=== PATIENT | male | born 1935 | race Caucasian/White ===

== ENCOUNTER 2018-07-22 05:25 | Inpatient (IN) | payer MEDICARE, OTHER, SELFPAY ==
[2018-07-11 14:39] VITALS: BP 127/67; PULSE 60; RESP 16; TEMP 36.6; O2SAT 97; BMI 28.3
[2018-07-11 15:20] LABS: Hemoglobin 14.1 g/dl (13.0-16.5); Mean Corpuscular Hgb 30.7 pg (27.0-32.0); Mean Corpuscular Volume 95.7 fL (80-94); Platelet Count 226 K/mm3 (150-450); RBC Distribution Width CV 13.7 % (11.6-14.6); RBC Distribution Width SD 47.6 fl (35.1-43.9); White Blood Count 6.8 K/mm3 (4.4-11.0)
[2018-07-11 15:45] LABS: Anion Gap 9 (5-15); BUN 18 mg/dL (7-18); BUN/Creat Ratio 16.7 RATIO (10-20); Calcium,Total 8.9 mg/dL (8.5-10.1); Chloride 106 mmol/L (98-107); Creatinine, Serum 1.08 mg/dL (0.70-1.30); EST Glomerular Filtration Rate 69 mL/min (>60); Est Glom Filt Rate - Afr Amer 84 mL/min (>60); Estimated Creatinine Clearance 51.02 ml/min; Glucose 118 mg/dL (74-106); Potassium 4.5 mmol/L (3.5-5.1); Sodium Level 145 mmol/L (136-145)
[2018-07-12 09:52] LABS: Absolute Lymphocyte Count 1.73 X10^3/ul (0.83-4.51); Absolute Neutrophil Count 3.9 X10^3/uL (2.0-7.7); Basophil# 0.04 X10^3/uL; Basophil% 0.6 % (0-1); Eosinophil# 0.36 X10^3/uL; Eosinophils% 5.4 % (0-5); Lymphocyte # 1.73 X10^3/ul (4.0); Lymphocyte % 26.1 % (19-41); Monocyte# 0.56 X10^3/uL; Monocyte% 8.4 % (0-10); Neutrophil # 3.93 X10^3/uL (2.7-7.7); Neutrophil % 59.3 % (47-70); POSITIVE COUNT NO; POSITIVE DIFFERENTIAL NO; POSITIVE MORPHOLOGY NO
--- NOTE | 2018-07-19 12:19 | CASEMGMT ---
Attempted to contact patient regarding discharge needs after upcoming surgery. No answer, message left on answering machine asking for a return call. Angelina Jon LPN Clinical Support
--- NOTE | 2018-07-19 12:50 | CASEMGMT ---
Patient returned phone call. Spoke regarding discharge needs after upcoming surgery. Patient plans to return home with assistance from . Has initial outpatient therapy appointment set up. Patient has a walker, is unsure of about having access to toilet riser or shower seat, states that is not home and she would know. Patient does not have a bedroom or bathroom on the 1st level of the home, there are approximately 15 steps to get to second level of home. There are 2-3 steps into the home. Patient asks if it's an option to go somewhere for a few days for therapy after surgery, states his may ask about that after surgery. Informed patient that RN-CM will follow up after surgery. Angelina Jon LPN Clinical Support
[2018-07-22] VITALS (12 sets, daily range): BP systolic 111–139; BP diastolic 59–72; PULSE 52–69; RESP 12–18; TEMP 35.9–37.2; O2SAT 92–100; BMI 28.3
[2018-07-22] MEDS: oxyCODONE HCl Cr 10 MG Tablet PO (06:00)
[2018-07-22] MEDS: Celecoxib 200 MG Capsule 400 MG PO (06:00)
[2018-07-22] MEDS: Acetaminophen 500 MG Tablet 1000 MG PO ×3 (06:01→21:14)
[2018-07-22] MEDS: Lactated Ringers 1,000 ML 999 ML IV (06:40)
--- NOTE | 2018-07-22 07:15 | KNEE_PTH ---
PATIENT: ESTELA GUEVARA LOC: MS3 U#:[id number] AGE/SX: 82/M ROOM: FL301 RE07/23/[address]: Dr. Ramos Salamanca DO : 1935 BED: 1 DIS: 07/24/2018 SPEC #: [id number] RECD: 07/22/18 15:18 STATUS: MATEO RERobert #: [id number] DEBRA: 07/22/18 07:[address]: aRmos Salamanca DEPT: SURGICAL PATHOLOGY RECD BY: Jose Gutierrez ENTERED: 07/23/18 08:29 SP TYPE: TOTAL KNEE OTHR DR: Dr. Miguel Hayes MD Tissues: Knee, NOS Procedures: Decalcification bone/plaque Surgery Specimen Level IV HEADER OPERATION: Total knee replacement PRE-OP DIAGNOSIS: Endstage osteoarthritis, left knee TISSUE SUBMITTED: Bone and soft tissue MICROSCOPIC DIAGNOSIS Bone and soft tissue of left knee, total knee resection: Consistent with severe degenerative joint disease. Mild synovial hyperplasia. AM:rianna 07/26/18 MICROSCOPIC DESCRIPTION Slides are reviewed. GROSS DESCRIPTION Received is one container designated bone and soft tissue left knee. The specimen consists of multiple fragments of ellison-yellow bone measuring in aggregate 10 x 9 x 4 cm. Also in the specimen container are multiple fragments of yellow-white soft tissue measuring in aggregate 8 x 7 x 4 cm. A number of bony fragments contain articular surfaces consistent with tibial plateau and femoral condyle and displaying prominent osteophyte formation, eburnation, and bone erosion. Independent Beauty Consultant sections are submitted in two cassettes as follows: 1 - soft tissue, 2 - bone after decalcification. / SJ:rianna 07/23/18 TC:5 [facility]: [id number], [id number]
[2018-07-22] MEDS: Cefazolin 2 GM in 0.9% Normal Saline 100 ML IV (07:20)
--- NOTE | 2018-07-22 08:38 | PCM.OPRPT ---
Report of Operation Date of Procedure: 07/22/18 Pre-Operative Diagnosis: OA Left knee Post-Operative Diagnosis: same Surgery/Procedure Performed:: Left TKR pallet sorter: Corky Bueno Type of Anesthesia:: Spinal Anesthesiologist: Erich Coombs Specimen's removed: bone Drains: 0 Estimated Blood Loss (mL): 25cc Description of Procedure: Primary Surgeon/Physician: Ramos Salamanca pallet sorter: Corky Bueno PA-C pallet sorter: Pre-Operative Diagnosis: OA left knee Post-Operative Diagnosis: same Surgery/Procedure Performed: Left TKR Estimated Blood Loss: 25 cc Specimen's Removed: bone Type of Anesthesia: spinal ASA Class: 2 Implants: [Italo Triathlon size 6 PS femur, size 6 tibia, 11 mm polyethylene, 40 mm patella (all components cemented) ] Indications: Patient has severe end-stage osteoarthritis diagnosed via x-rays in the knee. They have failed all forms of conservative measures including activity modification, injections, anti-inflammatories, use of assistive device. The patient has pain that affects on a daily basis and prevents him from doing things that they enjoyed. They have elected to undergo the above procedure. The risks of the procedure were discussed at length and their questions were answered. Procedure Description: The patient was greeted in the preoperative area. The [left ] knee was then marked with a surgical marker. Patient was then taken to or Suite 2. They were administered a dose of antibiotics as well as tranexamic acid. Once adequate anesthesia was obtained and airway was secured to placed in supine position on the operating room table. A well-padded tourniquet was placed on the affected extremity. Leg was then prepped and draped in the usual sterile fashion from the knee down. Ioban was used on the skin. Surgical timeout was then performed and confirmed with all present. Six-inch Esmarch was used to examine the limb and tourniquet was then inflated to 250 mmHg. A longitudinal incision was then planned and carried out in the anterior aspect of the knee. The dissection was then carried the length of the incision the extensor mechanism was identified. Standard medial parapatellar arthrotomy was then performed revealing severe eburnation of bone and periarticular osteophytes. There is complete loss of cartilage especially in the medial compartment with varus alignment. Anterior fat pad was removed for visualization purposes and the anterior medial aspect of the tibia was skeletonized for exposure to the knee. The knee was then flexed the patella was inverted. Opening reamer was then used in the femur approximately 1 cm anterior to the attachment of the PCL. The intramedullary valgus wand was then placed in the femur set at 5? of valgus. The distal femoral cutting jig was then applied to the femur with anticipated resection of approximately 8 mm. This was then made with a oscillating saw. The sizing guide was then placed referencing off the posterior condyles and also reference off the epicondylar axis. This was measured and the appropriate size 4-in-1 cutting jig was then applied to the distal femur. Anterior posterior cuts were made followed by the anterior and posterior chamfer cuts. These bony pieces and fragments were removed and placed on the back table. Posterior retractor was then utilized and the tibia was subluxed anteriorly. Intramedullary tibial alignment jig was then applied to the tibia referencing off the medial one third of the tibial tubercle the anterior tibial spine the middle aspect of the tibiotalar joint. Also reference off patient's [place] slope. The tibial cutting jig was then pinned with anticipated resection of 2 mm off of the deficient medial tibial condyle. This cut was made with the oscillating saw. Once this was complete a laminar bottom pounder cement shoes was utilized in both medial lateral meniscus were removed and a posterior capsular osteophytes were also removed. Posterior capsule release was performed in the posterior capsule as well as the geniculate arteries are treated with the aqua Mack. The tibia was incised and the appropriate sized tibial tray was then pinned. The femoral box cutting jig was then applied to the femur and the box was prepared removing a portion of the intercondylar notch. The femoral trial was then placed and the knee was trialed. Full flexion-extension were easily achieved. The knee seemed to balance quite nicely. Any remaining osteophytes were removed at this time. Once this was complete the patella was everted and the Yudelka patella reaming device was then utilized the patella was then placed in the appropriate jig and reamer was then used to remove approximately 9 mm of the undersurface of the patella. A soft tissue remaining was in the way was removed and patella trial was then placed listed maintain excellent tracking using the no thumbs technique. The tibial tray at this point was punched to accommodate the fins of the final implant. At this point cement was mixed on the back table. The trial components were removed and the knee was copiously irrigated. Did use a cocktail of injection for postoperative pain control. The final components were then cemented in the standard fashion and excess cement was removed with cement removal tools and patellar clamp is placed in the patella. As the cement had cured in full extension tourniquet was deflated and hemostasis was perfect with Bovie cautery as well as the aqua Manus. Needle is once again trialed with different size polyethylenes to ensure the full range of motion was achieved as well as excellent balancing ligamentously was achieved. At this point the knee was copiously irrigated. Final implant was then inserted locking mechanism was engaged and confirmed to be locked. The arthrotomy was then closed with #1 Vicryl aggravate type fashion interrupted. Subcutaneous tissue was closed with 0 Vicryl and surgical siobhan were placed in the skin. A occlusive silver impregnated dressing was then applied followed by well-padded sterile dressing secured with an Giuseppe wrap. The patient was taken to the PACU in stable condition. No complications known at this time. Postoperatively we will maintain standard total knee postoperative protocol. The use of the physician infertility medical assistant was integral during this procedure. They assisted with positioning placement of the tourniquet retracting closure and placement of the dressing. The procedure would have been much more difficult without their expertise and assistance - Admit VTE Documentation VTE Present on Admission: No VTE Mechan Device Prophylaxis: SCD's, Thigh High SHAUN Hose VTE Pharm Prophylaxis ordered?: Yes
--- NOTE | 2018-07-22 08:44 | OP.PCM_ITS ---
Report of Operation Date of Procedure: 07/22/18 Pre-Operative Diagnosis: OA Left knee Post-Operative Diagnosis: same Surgery/Procedure Performed:: Left TKR consumer safety officer: Corky Bueno Type of Anesthesia:: Spinal Anesthesiologist: Erich Coombs Specimen's removed: bone Drains: 0 Estimated Blood Loss (mL): 25cc Description of Procedure: Primary Surgeon/Physician: Ramos Salamanca consumer safety officer: Corky Bueno PA-C consumer safety officer: Pre-Operative Diagnosis: OA left knee Post-Operative Diagnosis: same Surgery/Procedure Performed: Left TKR Estimated Blood Loss: 25 cc Specimen's Removed: bone Type of Anesthesia: spinal ASA Class: 2 Implants: [Italo Triathlon size 6 PS femur, size 6 tibia, 11 mm polyethylene, 40 mm patella (all components cemented) ] Indications: Patient has severe end-stage osteoarthritis diagnosed via x-rays in the knee. They have failed all forms of conservative measures including activity modification, injections, anti-inflammatories, use of assistive device. The patient has pain that affects on a daily basis and prevents him from doing things that they enjoyed. They have elected to undergo the above procedure. The risks of the procedure were discussed at length and their questions were answered. Procedure Description: The patient was greeted in the preoperative area. The [left ] knee was then marked with a surgical marker. Patient was then taken to or Suite 2. They were administered a dose of antibiotics as well as tranexamic acid. Once adequate anesthesia was obtained and airway was secured to placed in supine position on the operating room table. A well-padded tourniquet was placed on the affected extremity. Leg was then prepped and draped in the usual sterile fashion from the knee down. Ioban was used on the skin. Surgical timeout was then performed and confirmed with all present. Six-inch Esmarch was used to examine the limb and tourniquet was then inflated to 250 mmHg. A longitudinal incision was then planned and carried out in the anterior aspect of the knee. The dissection was then carried the length of the incision the extensor mechanism was identified. Standard medial parapatellar arthrotomy was then performed revealing severe eburnation of bone and periarticular osteophytes. There is complete loss of cartilage especially in the medial compartment with varus alignment. Anterior fat pad was removed for visualization purposes and the anterior medial aspect of the tibia was skeletonized for exposure to the knee. The knee was then flexed the patella was inverted. Opening reamer was then used in the femur approximately 1 cm anterior to the attachment of the PCL. The intramedullary valgus wand was then placed in the femur set at 5? of valgus. The distal femoral cutting jig was then applied to the femur with anticipated resection of approximately 8 mm. This was then made with a oscillating saw. The sizing guide was then placed referencing off the posterior condyles and also reference off the epicondylar axis. This was measured and the appropriate size 4-in-1 cutting jig was then applied to the distal femur. Anterior posterior cuts were made followed by the anterior and posterior chamfer cuts. These bony pieces and fragments were removed and placed on the back table. Posterior retractor was then utilized and the tibia was subluxed anteriorly. Intramedullary tibial alignment jig was then applied to the tibia referencing off the medial one third of the tibial tubercle the anterior tibial spine the middle aspect of the tibiotalar joint. Also reference off patient's [place] slope. The tibial cutting jig was then pinned with anticipated resection of 2 mm off of the deficient medial tibial condyle. This cut was made with the oscillating saw. Once this was complete a laminar director targeted marketing was utilized in both medial lateral meniscus were removed and a posterior capsular osteophytes were also removed. Posterior capsule release was performed in the posterior capsule as well as the geniculate arteries are treated with the aqua Mack. The tibia was incised and the appropriate sized tibial tray was then pinned. The femoral box cutting jig was then applied to the femur and the box was prepared removing a portion of the intercondylar notch. The femoral trial was then placed and the knee was trialed. Full flexion-extension were easily achieved. The knee seemed to balance quite nicely. Any remaining osteophytes were removed at this time. Once this was complete the patella was everted and the Yudelka patella reaming device was then utilized the patella was then placed in the appropriate jig and reamer was then used to remove approximately 9 mm of the undersurface of the patella. A soft tissue remaining was in the way was removed and patella trial was then placed listed maintain excellent tracking using the no thumbs technique. The tibial tray at this point was punched to accommodate the fins of the final implant. At this point cement was mixed on the back table. The trial components were removed and the knee was copiously irrigated. Did use a cocktail of injection for postoperative pain control. The final components were then cemented in the standard fashion and excess cement was removed with cement removal tools and patellar clamp is placed in the patella. As the cement had cured in full extension tourniquet was deflated and hemostasis was perfect with Bovie cautery as well as the aqua Manus. Needle is once again trialed with different size polyethylenes to ensure the full range of motion was achieved as well as excellent balancing ligamentously was achieved. At this point the knee was copiously irrigated. Final implant was then inserted locking mechanism was engaged and confirmed to be locked. The arthrotomy was then closed with #1 Vicryl aggravate type fashion interrupted. Subcutaneous tissue was closed with 0 Vicryl and surgical siobhan were placed in the skin. A occlusive silver impregnated dressing was then applied followed by well-padded sterile dressing secured with an Giuseppe wrap. The patient was taken to the PACU in stable condition. No complications known at this time. Postoperatively we will maintain standard total knee postoperative protocol. The use of the physician credit control assistant was integral during this procedure. They assisted with positioning placement of the tourniquet retracting closure and placement of the dressing. The procedure would have been much more difficult without their expertise and assistance - Admit VTE Documentation VTE Present on Admission: No VTE Mechan Device Prophylaxis: SCD's, Thigh High SHAUN Hose VTE Pharm Prophylaxis ordered?: Yes
[2018-07-22 09:44] LABS: Hematocrit 41.3 % (40-54); Hemoglobin 13.2 g/dl (13.0-16.5); Mean Corpuscular Hgb 30.8 pg (27.0-32.0); Mean Corpuscular Volume 96.5 fL (80-94); Mean Platelet Vol. 9.6 fl (6.2-12.0); Platelet Count 197 K/mm3 (150-450); RBC Distribution Width CV 13.8 % (11.6-14.6); RBC Distribution Width SD 48.6 fl (35.1-43.9); Red Blood Count 4.28 M/mm3 (4.6-6.2); White Blood Count 9.1 K/mm3 (4.4-11.0)
[2018-07-22 09:46] LABS: Scan Indicated on CBC? Y/N NO
[2018-07-22 09:49] LABS: Anion Gap 5 (5-15); BUN 13 mg/dL (7-18); BUN/Creat Ratio 11.7 RATIO (10-20); Calcium,Total 8.5 mg/dL (8.5-10.1); Chloride 108 mmol/L (98-107); Creatinine, Serum 1.11 mg/dL (0.70-1.30); EST Glomerular Filtration Rate 67 mL/min (>60); Est Glom Filt Rate - Afr Amer 81 mL/min (>60); Estimated Creatinine Clearance 49.64 ml/min; Glucose 129 mg/dL (74-106); Potassium 4.4 mmol/L (3.5-5.1); Sodium Level 141 mmol/L (136-145)
--- NOTE | 2018-07-22 12:15 | CASEMGMT ---
LUZMA COTA Face to Face with patient for initial transition planning/care coordination assessment. RN CIPRIANO introduced self and role at [facility]. Patient lying in bed, alert and oriented, family at bedside. Patient willing to participate in assessment and is able to answer all questions appropriately. Care providers, pharmacy, and demographics verified. Patient wishes to discharge home and is setup with [facility] for outpatient therapy. Patient states he has no further needs or concerns at this time. CM to follow for discharge planning needs that may arise. PCP: Freddy Specialists: Kevin, dermatology; Maurice, rheumatology Preferred Pharmacy: [facility] Insurance: [facility] Prescription Benefit: Yes Living Will/HPOA: Yes, Yesika Hussein LNOK: and daughter Living Arrangements: Patient lives with in 2 story home. Patient can have bed on 1st floor with BSC. Patient was independent at home prior to surgery. Transportation: DME/HHC: Patient has tub bench, BSC, cane, walker at home. Denies home oxygen, bipap, cpap, or nebulizer at home. Patient denies previous HHC or SNF. Disposition Plan: Patient to discharge home with outpatient therapy, family support, and follow-up plans in place. Jackie MCGRAW, RN, CM
[2018-07-22] MEDS: Lactated Ringers 1,000 ML 125 ML IV ×2 (14:46→21:18)
[2018-07-22] MEDS: Cefazolin 1 GM/50 ML BAG IV ×2 (14:47→23:25)
[2018-07-22] MEDS: Scopolamine 1mg/72hr Patch 1 PATCH TD (14:48)
[2018-07-22] MEDS: Aspirin 325 MG Tablet PO (17:23)
[2018-07-22] MEDS: Senna/Docusate Sodium 1 Tablet 2 TABLET PO (21:14)
[2018-07-23 03:57] VITALS: BP 146/76; PULSE 65; RESP 16; TEMP 36.7; O2SAT 95
[2018-07-23] MEDS: 0.9% NaCl Peripheral Flush Adult/Peds IV (05:15)
[2018-07-23] MEDS: Acetaminophen 500 MG Tablet 1000 MG PO ×3 (05:15→21:57)
[2018-07-23 06:04] LABS: Hematocrit 41.1 % (40-54); Mean Corp Hgb Conc 31.6 g/gl (32-36); Mean Corpuscular Volume 97.9 fL (80-94); Mean Platelet Vol. 9.9 fl (6.2-12.0); Platelet Count 181 K/mm3 (150-450); RBC Distribution Width CV 13.5 % (11.6-14.6); RBC Distribution Width SD 47.1 fl (35.1-43.9); White Blood Count 9.3 K/mm3 (4.4-11.0)
[2018-07-23 06:11] LABS: Anion Gap 7 (5-15); BUN 12 mg/dL (7-18); BUN/Creat Ratio 12.1 RATIO (10-20); Calcium,Total 8.5 mg/dL (8.5-10.1); Chloride 108 mmol/L (98-107); Creatinine, Serum 0.99 mg/dL (0.70-1.30); EST Glomerular Filtration Rate 77 mL/min (>60); Est Glom Filt Rate - Afr Amer 93 mL/min (>60); Estimated Creatinine Clearance 55.66 ml/min; Glucose 100 mg/dL (74-106); Potassium 4.3 mmol/L (3.5-5.1); Sodium Level 144 mmol/L (136-145)
[2018-07-23 06:21] LABS: Scan Indicated on CBC? Y/N NO
--- NOTE | 2018-07-23 07:10 | PCM.PN.ORT ---
Subjective: Patient doing well. Pain well controlled. Objective: Sitting up in chair eating breakfast. - Physical Exam General: Alert, Oriented x3, No apparent distress Extremities: No clubbing, No cyanosis, No edema, Capillary Refill Less than 3 Seconds, No Calf Tenderness, Tenderness - Left knee as expected. ROM: -6 to 85 Skin: Incision - stable Vital Signs Temp Pulse Resp BP Pulse Ox 98.1 F 65 16 146/76 H 95 07/23/18 03:57 07/23/18 03:57 07/23/18 03:57 07/23/18 03:57 07/23/18 03:57 Oxygen Delivery Method Room Air Weight: 186 lb 8.177 oz Body Mass Index (BMI) 28.3 Intake and Output for Last 24 Hours 07/21/18 07/22/18 07/23/18 23:59 23:59 23:59 Intake Total 3831 / 3831 662 / 662 Output Total 925 / 925 1999 / 1999 Balance 2906 / 2906 -1338 / -1338 Laboratory Tests Past 24 Hrs 07/22/18 07/22/18 07/23/18 06:34 06:34 05:25 WBC 9.1 9.3 RBC 4.28 L 4.20 L Hgb 13.2 13.0 Hct 41.3 41.1 MCV 96.5 H 97.9 H MCH 30.8 31.0 MCHC 32.0 31.6 L RDW 13.8 13.5 RDW Differential 48.6 H 47.1 H Plt Count 197 181 MPV 9.6 9.9 Sodium 141 Potassium 4.4 Chloride 108 H Carbon Dioxide 28.0 Anion Gap 5 BUN 13 Creatinine 1.11 Estim Creat Clear Calc 49.64 Est GFR (MDRD) Af Amer 81 Est GFR (MDRD) Non-Af 67 BUN/Creatinine Ratio 11.7 Glucose 129 H Calcium 8.5 07/23/18 05:25 WBC RBC Hgb Hct MCV MCH MCHC RDW RDW Differential Plt Count MPV Sodium 144 Potassium 4.3 Chloride 108 H Carbon Dioxide 29.0 Anion Gap 7 BUN 12 Creatinine 0.99 Estim Creat Clear Calc 55.66 Est GFR (MDRD) Af Amer 93 Est GFR (MDRD) Non-Af 77 BUN/Creatinine Ratio 12.1 Glucose 100 Calcium 8.5 Medical Necessity - Tobacco Use Smoking Status: Former smoker Tobacco Use: Non-smoker Assessment/Plan s/p Left TKR -- PT today then home tomorrow
[2018-07-23] MEDS: Calcium Carb/Vitamin D 1 TABLET Tablet PO (08:25)
[2018-07-23] MEDS: Aspirin 325 MG Tablet PO ×2 (08:25→16:56)
[2018-07-23] MEDS: Multivitamins,Ther W-Minerals Tablet 1 TABLET PO (08:25)
[2018-07-23] MEDS: Senna/Docusate Sodium 1 Tablet 2 TABLET PO ×2 (09:21→21:57)
[2018-07-23] MEDS: amLODIPine 2.5 MG Tablet PO (09:21)
[2018-07-23] MEDS: Atenolol 50 MG Tablet PO (09:21)
[2018-07-23] MEDS: Ketorolac 15 MG/ML Vial IV (09:24)
[2018-07-23 09:48] VITALS: BP 129/62; PULSE 68; RESP 16; TEMP 36.8; O2SAT 98
--- NOTE | 2018-07-23 11:24 | CASEMGMT ---
LUZMA COTA updated by family that patient will need new walker. RN CM will request script for FWW. Patient and family agreeable to [employer]. RN CM will assist in setting up walker and arrange for delivery to patient's room prior to discharge. Discharge is anticipated for 07/24/18 to home with outpatient therapy at [facility].
[2018-07-23] MEDS: oxyCODONE 5 MG Tablet PO (12:16)
[2018-07-23 16:00] VITALS: BP 145/63; PULSE 72; RESP 16; TEMP 36.5; O2SAT 93
[2018-07-23 20:29] VITALS: BP 143/63; PULSE 71; RESP 18; TEMP 37; O2SAT 96
[2018-07-24 02:28] VITALS: BP 143/62; PULSE 65; RESP 18; TEMP 36.7; O2SAT 96
[2018-07-24] MEDS: traMADol 50 MG Tablet PO ×2 (02:33→10:25)
[2018-07-24] MEDS: Acetaminophen 500 MG Tablet 1000 MG PO ×2 (06:02→14:20)
--- NOTE | 2018-07-24 08:20 | NURSING ---
pt out of room at [facility].
[2018-07-24] MEDS: amLODIPine 2.5 MG Tablet PO (10:25)
[2018-07-24] MEDS: Calcium Carb/Vitamin D 1 TABLET Tablet PO (10:25)
[2018-07-24] MEDS: Aspirin 325 MG Tablet PO (10:25)
[2018-07-24] MEDS: Multivitamins,Ther W-Minerals Tablet 1 TABLET PO (10:25)
[2018-07-24] MEDS: Senna/Docusate Sodium 1 Tablet 2 TABLET PO (10:25)
[2018-07-24] MEDS: Atenolol 50 MG Tablet PO (10:25)
[2018-07-24 10:37] VITALS: BP 134/67; PULSE 68; RESP 18; TEMP 36.8; O2SAT 95
--- NOTE | 2018-07-24 11:13 | PCM.PN.ORT ---
Subjective: Patient sitting at bedside with his at his side. Pain well managed. Denies chest pain, shortness breath, calf pain, nausea vomiting. Patient ready for discharge home. Objective: Dressings clean dry intact. Negative signs and symptoms of DVT. Vital signs labs within normal limits. Patient is afebrile neurovascular is intact. No respiratory distress speaking full sentences. - Physical Exam General: Alert, Oriented x3, Cooperative HEENT: PERRLA Oral: Moist Mucosa Neurological: Cranial nerves II-XII grossly intact Psych/Mental Status: Normal Affect, Alert and oriented to time, place, person, mood and affect Vital Signs Temp Pulse Resp BP Pulse Ox 98.2 F 68 18 134/67 H 95 07/24/18 10:37 07/24/18 10:37 07/24/18 10:37 07/24/18 10:37 07/24/18 10:37 Oxygen Delivery Method Room Air Weight: 84.6 kg Body Mass Index (BMI) 28.3 Intake and Output for Last 24 Hours 07/22/18 07/23/18 07/24/18 23:59 23:59 23:59 Intake Total 3831 / 3831 902 / 902 400 / 400 Output Total 925 / 925 2375 / 2375 1050 / 1050 Balance 2906 / 2906 -1473 / -1473 -650 / -650 Medical Necessity - Tobacco Use Smoking Status: Former smoker Tobacco Use: Non-smoker Assessment/Plan Status post left total knee arthroplasty Plan 1. Continue all pain medications as prescribed 2. Continue physical therapy outpatient at [facility] [place] 3. Aspirin 325 mg 1 p.o. every 12 hours times 30 days for postop DVT prophylaxis 4. Follow-up as scheduled to see pink sheet 5. Discharge home today
--- NOTE | 2018-07-24 11:16 | PN.ORTHO_ITS ---
Subjective: Patient sitting at bedside with his at his side. Pain well managed. Denies chest pain, shortness breath, calf pain, nausea vomiting. Patient ready for discharge home. Objective: Dressings clean dry intact. Negative signs and symptoms of DVT. Vital signs labs within normal limits. Patient is afebrile neurovascular is intact. No respiratory distress speaking full sentences. - Physical Exam General: Alert, Oriented x3, Cooperative HEENT: PERRLA Oral: Moist Mucosa Neurological: Cranial nerves II-XII grossly intact Psych/Mental Status: Normal Affect, Alert and oriented to time, place, person, mood and affect Vital Signs Temp Pulse Resp BP Pulse Ox 98.2 F 68 18 134/67 H 95 07/24/18 10:37 07/24/18 10:37 07/24/18 10:37 07/24/18 10:37 07/24/18 10:37 Oxygen Delivery Method Room Air Weight: 84.6 kg Body Mass Index (BMI) 28.3 Intake and Output for Last 24 Hours 07/22/18 07/23/18 07/24/18 23:59 23:59 23:59 Intake Total 3831 / 3831 902 / 902 400 / 400 Output Total 925 / 925 2375 / 2375 1050 / 1050 Balance 2906 / 2906 -1473 / -1473 -650 / -650 Medical Necessity - Tobacco Use Smoking Status: Former smoker Tobacco Use: Non-smoker Assessment/Plan Status post left total knee arthroplasty Plan 1. Continue all pain medications as prescribed 2. Continue physical therapy outpatient at [facility] [place] 3. Aspirin 325 mg 1 p.o. every 12 hours times 30 days for postop DVT prophy laxis 4. Follow-up as scheduled to see pink sheet 5. Discharge home today
--- NOTE | 2018-07-24 11:20 | DCINST_ITS ---
Discharge Diet: No Restrictions Discharge Activity: May Not Drive, May Shower, Use Walker May shower in (days): 2 Ice area for (Minutes): 20 - each hour while awake. Weight Bearing Status: Weight bearing as tolerated Elevate: Operative Extremity Additional Activity Instructions:: Wear elastic stockings for 2 weeks after your surgery. Call your doctor if your incision/area has: Continuous Slow Oozing, Sudden Increased Bleeding, Increased Pain/ Swelling, Increased Redness, Foul Smelling Discharge Call your doctor if you observe: Fever of 101 or Higher, Coldness, Increased Pain - in extremity, Numbness or Tingling, Change in Color, Calf discomfort, Uncontrolled pain Change Dressing in (Days):: 0 - and daily as needed. Remove Dressing in (days):: 8 Cleanse incision/area with: Soap & Water Allergies/Adverse Reactions: Allergies piroxicam [From Feldene] Allergy (Verified 07/22/18 05:53) Unknown adhesive tape Adverse Reaction (Verified 07/22/18 05:53) Rash Medications to take at Discharge Amlodipine [Norvasc] 2.5 mg PO DAILY 07/11/18 Atenolol [Tenormin (beta jefry)] 50 mg PO DAILY 07/11/18 Calcium Carbonate/Vitamin D3 [Calcium 600 + Vit D Tablet] 1 each PO DAILY 07/11/18 Etanercept [Enbrel] 50 mg SQ TH 07/11/18 Multivitamin with Minerals [Multiple Vitamin] 1 each PO DAILY 07/11/18 [place]-3 Fatty Acids/Fish Oil [Fish Oil 1,000 mg Capsule] 1 each PO BID 07/11/18 Acetaminophen [Tylenol] 1,000 mg PO Q8 #90 tab 07/24/18 Aspirin 325 mg PO BIDCM #60 tab 07/24/18 traMADol [Ultram] 50 - 100 mg PO Q6H PRN PRN #85 tab 07/24/18 The following prescriptions were given: traMADol [Ultram] 50 - 100 mg PO Q6H PRN PRN #85 tab PRN Reason: Moderate Pain (4-5/10) Acetaminophen [Tylenol] 1,000 mg PO Q8 #90 tab Aspirin 325 mg PO BIDCM #60 tab Primary Care Physician: Miguel Hayes MD [Primary Care Provider] - Test Results: Test results from this visit will be discussed in further detail at your follow- up appointment, if applicable. Please Follow Up With: Ramos Salamanca, DO When: see pink sheet
--- NOTE | 2018-07-24 11:30 | CASEMGMT ---
RN CIPRIANO received script for FWW. RN CIPRIANO sent [place] to [facility] [place] and arranged [place] walker to be delivered to patient's room prior to discharge. CM will continue to follow this patient and plan for a safe discharge.
== END 2018-07-24 14:44 | disposition home or self-care (01) | DRG 470 ==
PROVIDERS: Admitting Provider Orthopaedic Surgery; Family Provider Family Medicine; PCP Family Medicine; Referring Provider Orthopaedic Surgery; Visit Provider Orthopaedic Surgery
PROC: (CPT 27447; principal; 2018-07-22 06:50)
DX: M17.12 Unilateral primary osteoarthritis, left knee (principal); I10 Essential (primary) hypertension; L40.9 Psoriasis, unspecified; Z79.899 Other long term (current) drug therapy; Z87.891 Personal history of nicotine dependence
CPT/HCPCS: 36415; 80048; 85025; 85027; 87081; 88305; 88311; 93005; 97110; 97116; 97162; 97166; 97530; 99406; C1776; J7120; A4216

== ENCOUNTER 2018-07-25 21:58 | Emergency (ER) | payer MEDICARE, OTHER, SELFPAY ==
[2018-07-22 11:03] VITALS: BMI 28.3
[2018-07-25 21:59] VITALS: BP 134/72; PULSE 72; RESP 16; TEMP 36.7; O2SAT 95; BMI 27.8
[2018-07-25 23:38] VITALS: BP 131/74; PULSE 68; RESP 16; TEMP 36.9; O2SAT 96
--- NOTE | 2018-07-25 23:50 | RAD_ITS ---
STUDY: X-RAY - LEFT KNEE REASON FOR EXAM: Male, 82 years old. Recent knee surgery now with redness and swelling TECHNIQUE: 2 view(s) of the knee. COMPARISON: None. FINDINGS: Anterior skin siobhan. Anterior soft tissue swelling. Suprapatellar effusion. Uncomplicated knee arthroplasty. Normal alignment and no evidence of hardware failure. No acute fractures or osteolytic lesions are seen. RAD/Knee 1 or 2 Views IMPRESSION: No acute osseous abnormality is evident. Electronically Signed: Dave Medina MD at 0:52 EST Tel , Service support ,
[2018-07-25 23:54] LABS: Absolute Lymphocyte Count 1.34 X10^3/ul (0.83-4.51); Absolute Neutrophil Count 7.6 X10^3/uL (2.0-7.7); Basophil# 0.03 X10^3/uL; Basophil% 0.3 % (0-1); Eosinophil# 0.38 X10^3/uL; Eosinophils% 3.7 % (0-5); Hematocrit 32.3 % (40-54); Hemoglobin 10.5 g/dl (13.0-16.5); Lymphocyte # 1.34 X10^3/ul (4.0); Lymphocyte % 13.2 % (19-41); Mean Corp Hgb Conc 32.5 g/gl (32-36); Mean Corpuscular Hgb 31.3 pg (27.0-32.0); Mean Corpuscular Volume 96.1 fL (80-94); Mean Platelet Vol. 10.1 fl (6.2-12.0); Monocyte# 0.76 X10^3/uL; Monocyte% 7.5 % (0-10); Neutrophil # 7.64 X10^3/uL (2.7-7.7); Neutrophil % 75.1 % (47-70); Platelet Count 195 K/mm3 (150-450); RBC Distribution Width CV 13.7 % (11.6-14.6); RBC Distribution Width SD 48.3 fl (35.1-43.9); Red Blood Count 3.36 M/mm3 (4.6-6.2); White Blood Count 10.2 K/mm3 (4.4-11.0)
[2018-07-25 23:56] LABS: POSITIVE COUNT NO; POSITIVE DIFFERENTIAL NO; POSITIVE MORPHOLOGY NO
[2018-07-26] LABS: Erythrocyte Sedimentation Rate 58 mm/hr (0-20)
[2018-07-26 00:05] LABS: Anion Gap 7 (5-15); BUN 16 mg/dL (7-18); BUN/Creat Ratio 15.2 RATIO (10-20); Calcium,Total 8.6 mg/dL (8.5-10.1); Chloride 105 mmol/L (98-107); Creatinine, Serum 1.05 mg/dL (0.70-1.30); EST Glomerular Filtration Rate 72 mL/min (>60); Est Glom Filt Rate - Afr Amer 87 mL/min (>60); Estimated Creatinine Clearance 52.48 ml/min; Glucose 135 mg/dL (74-106); Potassium 4.4 mmol/L (3.5-5.1); Sodium Level 139 mmol/L (136-145)
--- NOTE | 2018-07-26 00:58 | ED.VISSUMM ---
- ER Visit Summary Date of Service: 07/26/18 Chief Complaint: Left knee pain History of Present Illness: The patient is a 82 M with left knee pain. He is postop day 3 for a left total knee replacement by Dr. Salamanca. He has been doing well, but today his anterior left knee became red and swollen. He has increasing pain as well and he reports some spots of blood are visible on his dressing. Denies fever or systemic symptoms. He is taking aspirin but no other blood thinners. He has a history of psoriatic arthritis and was previously on Enbrel, but is not currently on immune suppressants, he has been holding this medication. Physical Examination: Febrile and vital signs unremarkable. Alert and oriented. No acute distress. Left knee shows an anterior dressing with small spots of blood visible through the dressing. No other bleeding or abnormal findings at the incision site or dressing. He has diffuse anterior swelling and erythema. Mild tenderness. Calf soft but mildly edematous. Calf nontender. Compartments soft. Neurovascular intact distally. Good extension and range of motion. Test Results: Hemoglobin 10.5. Metabolic panel normal. ESR 58 and CRP 189. Chest x-ray showed postoperative changes. Emergency Department Course and Treatment: I suspect the patient has a cutaneous infection. I have less suspicion for DVT. Ultrasound is not available at this time anyway. Patient was discussed with Dr. Salamanca. He will follow-up the patient tomorrow. I will start patient on Keflex. Return for any new or worsening issues. Treatment Plan: As above Disposition: Discharge Impression: 1. Left knee pain This note was generated with CrossChx dictation software. It may contain incorrect words, spelling, and punctuation that were not noted in review of the chart prior to signing ED Disposition - Plan for ED Patient: Referrals: Miguel Hayes MD [Primary Care Provider] -
--- NOTE | 2018-07-26 01:05 | ED.DCSUM_ITS ---
- ER Visit Summary Date of Service: 07/26/18 Chief Complaint: Left knee pain History of Present Illness: The patient is a 82 M with left knee pain. He is postop day 3 for a left total knee replacement by Dr. Salamanca. He has been doing well, but today his anterior left knee became red and swollen. He has i ncreasing pain as well and he reports some spots of blood are visible on his dressing. Denies fever or systemic symptoms. He is taking aspirin but no other blood thinners. He has a history of psoriatic arthritis and was previously on Enbrel, but is not currently on immune suppressants, he has been holding this medication. Physical Examination: Febrile and vital signs unremarkable. Alert and oriented. No acute distress. Left knee shows an anterior dressing with small spots of blood visible through the dressing. No other bleeding or abnormal findings at the incision site or dressing. He has diffuse anterior swelling and erythema. Mild tenderness. Calf soft but mildly edematous. Calf nontender. Compartments soft. Neurovascular intact distally. Good extension and range of motion. Test Results: Hemoglobin 10.5. Metabolic panel normal. ESR 58 and CRP 189. Chest x-ray showed postoperative changes. Emergency Department Course and Treatment: I suspect the patient has a cutaneous infection. I have less suspicion for DVT. Ultrasound is not available at this time anyway. Patient was discussed with Dr. Salamanca. He will follow-up the patient tomorrow. I will start patient on Keflex. Return for any new or worsening issues. Treatment Plan: As above Disposition: Discharge Impression: 1. Left knee pain This note was generated with Experenti dictation software. It may contain incorrect words, spelling, and punctuation that were not noted in review of the chart prior to signing ED Disposition - Plan for ED Patient: Referrals: Miguel Hayes MD [Primary Care Provider] -
--- NOTE | 2018-07-26 01:05 | ED.DEP ---
ED Disposition - Plan for ED Patient: Instructions: Discharge Instructions for Cellulitis Prescriptions: Cephalexin [Keflex] 500 mg PO Q6 #40 cap Referrals: Ramos Salamanca DO [STAFF PHYSICIAN] -
[2018-07-26] MEDS: Cephalexin 250 MG Capsule 500 MG PO (01:15)
[2018-07-26 01:16] VITALS: BP 136/87; PULSE 68; RESP 16; O2SAT 98
== END 2018-07-26 01:24 | disposition home or self-care (01) ==
LOC: ED 23:42
PROVIDERS: Emergency Provider Emergency Medicine; Family Provider Family Medicine; PCP Family Medicine
DX: M25.562 Pain in left knee (principal); R21 Rash and other nonspecific skin eruption; I10 Essential (primary) hypertension; L40.50 Arthropathic psoriasis, unspecified; Z96.652 Presence of left artificial knee joint; Z85.53 Personal history of malignant neoplasm of renal pelvis
CPT/HCPCS: 73560; 80048; 85025; 85652; 86140; 99283; A4216

== ENCOUNTER 2019-03-17 10:51 | Observation (INO) | payer MEDICARE, OTHER, SELFPAY ==
[2019-03-05 13:16] VITALS: BP 143/88; PULSE 69; RESP 16; TEMP 36.3; O2SAT 96; BMI 28.3
--- NOTE | 2019-03-05 13:26 | SDCEKG_ITS ---
Test Reason : Blood Pressure : / mmHG Vent. Rate : 063 BPM Atrial Rate : 063 BPM P-R Int : 182 ms QRS Dur : 106 ms QT Int : 390 ms P-R-T Axes : 067 058 054 degrees QTc Int : 399 ms Sinus rhythm with Premature atrial complexes Otherwise normal ECG Confirmed by CHEPE GREGORY, ANGEL ([id number]), editor department TAMAR WELLS ([id number]) on 03/11/2019 11:30:34 AM Referred By: Ramos Salamanca Confirmed By:ANGEL MO MD
[2019-03-05 14:00] LABS: Absolute Lymphocyte Count 1.37 X10^3/uL (0.83-4.51); Basophil# 0.07 X10^3/uL; Basophil% 0.8 % (0-1); Eosinophil# 0.44 X10^3/uL; Eosinophils% 5.2 % (0-5); Hematocrit 46.1 % (40-54); Hemoglobin 14.7 g/dL (13.0-16.5); Lymphocyte # 1.37 X10^3/ul (4.0); Lymphocyte % 16.1 % (19-41); Mean Corp Hgb Conc 31.9 g/dL (32-36); Mean Corpuscular Hgb 30.3 pg (27.0-32.0); Mean Corpuscular Volume 95.1 fL (80-94); Mean Platelet Vol. 9.6 fl (6.2-12.0); Monocyte# 0.65 X10^3/uL; Monocyte% 7.7 % (0-10); NRBC Flagged by Analyzer 0 % (0-5); Neutrophil # 5.95 X10^3/uL (2.7-7.7); Neutrophil % 70.1 % (47-70); Platelet Count 213 K/mm3 (150-450); RBC Distribution Width CV 14.5 % (11.6-14.6); RBC Distribution Width SD 50.9 fl (35.1-43.9); Red Blood Count 4.85 M/mm3 (4.6-6.2); White Blood Count 8.5 K/mm3 (4.4-11.0)
[2019-03-05 14:29] LABS: Anion Gap 5 (5-15); BUN 14 mg/dL (7-18); Calcium,Total 9.3 mg/dL (8.5-10.1); Chloride 106 mmol/L (98-107); EST Glomerular Filtration Rate 76 mL/min (>60); Est Glom Filt Rate - Afr Amer 92 mL/min (>60); Estimated Creatinine Clearance 54.15 ml/min; Glucose 93 mg/dL (74-106); Potassium 4.6 mmol/L (3.5-5.1); Sodium Level 142 mmol/L (136-145)
--- NOTE | 2019-03-05 14:45 | RAD_ITS ---
STUDY: X-RAY CHEST REASON FOR EXAM: Male, 83 years old. Preoperative evaluation. Cough. TECHNIQUE: PA and lateral views of the chest. COMPARISON: None. FINDINGS: Hyperinflation. The lungs are clear. There is no demonstrated pleural abnormality. Normal size heart. Normal mediastinum and carlos enrique. Normal visualized pulmonary arteries. There is atherosclerotic tortuosity of the aortic arch and descending thoracic aorta. There are diffuse degenerative changes of the visualized thoracic spine. Normal visualized ribs, clavicles, and shoulders. Surgical clips are seen in the right upper quadrant. RAD/Chest PA and Lateral IMPRESSION: Hyperinflation. Electronically Signed: Adria Worthy, at 15:22 EDT , Service support ,
[2019-03-17] VITALS (9 sets, daily range): BP systolic 104–135; BP diastolic 51–77; PULSE 48–63; RESP 16–18; TEMP 36.3–36.8; O2SAT 95–100; BMI 28.3
[2019-03-17] MEDS: Magnesium Sulfate 4gm/100mL 4 GM/100 ML IV.SOLN. IV (09:21)
[2019-03-17] MEDS: Lactated Ringers 1,000 ML 125 ML IV ×2 (09:22→17:13)
[2019-03-17] MEDS: Gabapentin 600 MG Tablet PO (09:23)
[2019-03-17] MEDS: Acetaminophen 500 MG Tablet 1000 MG PO ×2 (09:23→22:02)
[2019-03-17 09:41] LABS: Bedside Glucose 138 mg/dL (70-110)
[2019-03-17] MEDS: Cefazolin 2 GM in 0.9% Normal Saline 100 ML IV (10:45)
--- NOTE | 2019-03-17 10:55 | KNEE_PTH ---
PATIENT: ESTELA GUEVARA LOC: MS3 U#:[id number] AGE/SX: 83/M ROOM: MS308 RE03/17/[address]: Dr. Ramos Salamanca DO : 1935 BED: 1 DIS: 03/18/2019 SPEC #: [id number] RECD: 03/17/19 15:47 STATUS: MATEO REQ #: [id number] DEBRA: 03/17/19 10:[address]: Ramos Salamanca DEPT: SURGICAL PATHOLOGY RECD BY: Jese Fuentes ENTERED: 03/18/19 07:58 SP TYPE: TOTAL KNEE OTHR DR: Dr. Miguel Hayes MD Tissues: Knee, NOS Procedures: Decalcification bone/plaque Surgery Specimen Level IV HEADER OPERATION: ERAS, total knee replacement PRE-OP DIAGNOSIS: Unilateral primary osteoarthritis right knee TISSUE SUBMITTED: Bone and soft tissue right knee MICROSCOPIC DIAGNOSIS Bone and soft tissue of right knee, total knee resection: Severe degenerative joint disease. Mild synovial hyperplasia. AM:rianna 03/21/19 MICROSCOPIC DESCRIPTION Slides are reviewed. GROSS DESCRIPTION Received is one container designated bone and soft tissue right knee. The specimen consists of multiple fragments of ellison-yellow bone measuring in aggregate 11 x 11 x 4 cm. Also in the specimen container are multiple fragments of yellow-white soft tissue measuring in aggregate 9 x 9 x 3 cm. A number of bony fragments contain articular surfaces consistent with tibial plateau and femoral condyle and displaying prominent osteophyte formation, eburnation, and bone erosion. Tutor Coordinator sections are submitted in two cassettes as follows: 1 - soft tissue, 2 - bone after decalcification. / SJ:rianna 03/18/19 TC:5 [facility]: [id number], [id number]
--- NOTE | 2019-03-17 12:12 | OP.PCM_ITS ---
Report of Operation Date of Procedure: 03/17/19 Pre-Operative Diagnosis: OA right knee Post-Operative Diagnosis: same Surgery/Procedure Performed:: Right TKR Description of Surgical Findings:: Primary Surgeon/Physician: Ramos Salamanca peoplesoft hrms developer: Corky Bueno PA-C peoplesoft hrms developer: Pre-Operative Diagnosis: OA right knee Post-Operative Diagnosis: same Surgery/Procedure Performed: Right TKR Estimated Blood Loss: 25 cc Specimen's Removed: bone Type of Anesthesia: spinal ASA Class: 2 Implants: [Italo Triathlon size 5 PS cemented femur, size 6 tibia, 11 mm po lyethylene spacer, 40 mm patella ] Indications: Patient has severe end-stage osteoarthritis diagnosed via x-rays in the knee. They have failed all forms of conservative measures including activity modification, injections, anti-inflammatories, use of assistive device. The patient has pain that affects on a daily basis and prevents him from doing things that they enjoyed. They have elected to undergo the above procedure. The risks of the procedure were discussed at length and their questions were answered. Procedure Description: The patient was greeted in the preoperative area. The [right ] knee was then marked with a surgical marker. Patient was then taken to or [address]. They were administered a dose of antibiotics as well as tranexamic acid. Once adequate anesthesia was obtained and airway was secured to placed in supine position on the operating room table. A well-padded tourniquet was placed on the affected extremity. Leg was then prepped and draped in the usual sterile fashion from the knee down. Ioban was used on the skin. Surgical timeout was then performed and confirmed with all present. Six-inch Esmarch was used to examine the limb and tourniquet was then inflated to 250 mmHg. A longitudinal incision was then planned and carried out in the anterior aspect of the knee. The dissection was then carried the length of the incision the extensor mechanism was identified. Standard medial parapatellar arthrotomy was then performed revealing severe eburnation of bone and periarticular osteophytes. There is complete loss of cartilage especially in the medial compartment with varus alignment. Anterior fat pad was removed for visualization purposes and the anterior medial aspect of the tibia was skeletonized for exposure to the knee. The knee was then flexed the patella was inverted. Opening reamer was then used in the femur approximately 1 cm anterior to the attachment of the PCL. The intramedullary valgus wand was then placed in the femur set at 5? of valgus. The distal femoral cutting jig was then applied to the femur with anticipated resection of approximately 8 mm. This was then made with a oscillating saw. The sizing guide was then placed referencing off the posterior condyles and also reference off the epicondylar axis. This was measured and the appropriate size 4-in-1 cutting jig was then applied to the distal femur. Anterior posterior cuts were made followed by the anterior and posterior chamfer cuts. These bony pieces and fragments were removed and placed on the back table. Posterior retractor was then utilized and the tibia was subluxed anteriorly. Intramedullary tibial alignment jig was then applied to the tibia referencing off the medial one third of the tibial tubercle the anterior tibial spine the middle aspect of the tibiotalar joint. Also reference off patient's [place] slope. The tibial cutting jig was then pinned with anticipated resection of 2 mm off of the deficient medial tibial condyle. This cut was made with the oscillating saw. Once this was complete a laminar client application support engineer was utilized in both medial lateral meniscus were removed and a posterior capsular osteophytes were also removed. Posterior capsule release was performed in the posterior capsule as well as the geniculate arteries are treated with the aqua Mack. The tibia was incised and the appropriate sized tibial tray was then pinned. The femoral box cutting jig was then applied to the femur and the box was prepared removing a portion of the intercondylar notch. The femoral trial was then placed and the knee was trialed. Full flexion-extension were easily achieved. The knee seemed to balance quite nicely. Any remaining osteophytes were removed at this time. Once this was complete the patella was everted and the Giritech patella reaming device was then utilized the patella was then placed in the appropriate jig and reamer was then used to remove approximately 9 mm of the undersurface of the patella. A soft tissue remaining was in the way was removed and patella trial was then placed listed maintain excellent tracking using the no thumbs technique. The tibial tr ay at this point was punched to accommodate the fins of the final implant. At this point cement was mixed on the back table. The trial components were removed and the knee was copiously irrigated. Did use a cocktail of injection for postoperative pain control. The final components were then cemented in the standard fashion and excess cement was removed with cement removal tools and patellar clamp is placed in the patella. As the cement had cured in full extension tourniquet was deflated and hemostasis was perfect with Bovie cautery as well as the aqua Manus. Needle is once again trialed with different size polyethylenes to ensure the full range of motion was achieved as well as excellent balancing ligamentously was achieved. At this point the knee was copiously irrigated. Final implant was then inserted locking mechanism was engaged and confirmed to be locked. The arthrotomy was then closed with #1 Vicryl aggravate type fashion interrupted. Subcutaneous tissue was closed with 0 Vicryl and surgical siobhan were placed in the skin. A occlusive silver impregnated dressing was then applied followed by well-padded sterile dressing secured with an Giuseppe wrap. The patient was taken to the PACU in stable condition. No complications known at this time. Postoperatively we will maintain standard total knee postoperative protocol. The use of the physician tmd teacher assistant was integral during this procedure. They assisted with positioning placement of the tourniquet retracting closure and placement of the dressing. The procedure would have been much more difficult without their expertise and assistance peoplesoft hrms developer: Corky Bueno Type of Anesthesia:: Spinal Anesthesiologist: August Zaman Specimen's removed: bone - Admit VTE Documentation VTE Present on Admission: No VTE Mechan Device Prophylaxis: SCD's, Thigh High SHAUN Hose VTE Pharm Prophylaxis ordered?: Yes
[2019-03-17] MEDS: Cefazolin 1 GM/50 ML BAG IV (18:22)
[2019-03-17] MEDS: Senna/Docusate Sodium 1 Tablet 2 TABLET PO (22:02)
[2019-03-18] MEDS: Cefazolin 1 GM/50 ML BAG IV (02:08)
[2019-03-18 03:53] VITALS: BP 129/72; PULSE 60; RESP 16; TEMP 36.6; O2SAT 96
[2019-03-18 06:01] LABS: Hematocrit 39.2 % (40-54); Hemoglobin 12.4 g/dL (13.0-16.5); Mean Corp Hgb Conc 31.6 g/dL (32-36); Mean Corpuscular Hgb 30.5 pg (27.0-32.0); Mean Corpuscular Volume 96.3 fL (80-94); Mean Platelet Vol. 9.7 fl (6.2-12.0); Platelet Count 194 K/mm3 (150-450); RBC Distribution Width CV 14.1 % (11.6-14.6); RBC Distribution Width SD 49.7 fl (35.1-43.9); Red Blood Count 4.07 M/mm3 (4.6-6.2)
[2019-03-18 06:25] LABS: Anion Gap 5 (5-15); BUN 11 mg/dL (7-18); BUN/Creat Ratio 12.8 RATIO (10-20); Calcium,Total 8.2 mg/dL (8.5-10.1); Chloride 108 mmol/L (98-107); Creatinine, Serum 0.86 mg/dL (0.70-1.30); EST Glomerular Filtration Rate 90 mL/min (>60); Est Glom Filt Rate - Afr Amer 109 mL/min (>60); Estimated Creatinine Clearance 62.97 ml/min; Glucose 88 mg/dL (74-106); Potassium 4.4 mmol/L (3.5-5.1); Sodium Level 144 mmol/L (136-145)
[2019-03-18] MEDS: Acetaminophen 500 MG Tablet 1000 MG PO ×2 (07:05→13:28)
--- NOTE | 2019-03-18 07:44 | PN.ORTHO_ITS ---
Subjective: Patient sitting up in bed sleeping, easy to awake. Patient states his pain is been very well managed. Patient denies chest pain, shortness of breath, calf pain, nausea vomiting. Patient has no other complaints. Patient states he is ready for discharge home, where he will continue his outpatient physical therapy at [facility]. Objective: Dressing is clean dry intact. Negative signs and symptoms of DVT. Patient's vital signs and labs within normal limits. Patient is afebrile, neurovascular is otherwise intact. Patient is speaking in full sentences with no signs of respiratory distress. - Physical Exam Vitals/I&O's: Vital Signs Temp Pulse Resp BP Pulse Ox 97.9 F 60 16 129/72 H 96 03/18/19 03:53 03/18/19 03:53 03/18/19 03:53 03/18/19 03:53 03/18/19 03:53 Oxygen Flow Rate (L/min) 6 Oxygen Delivery Method Room Air Weight: 85.6 kg Body Mass Index (BMI) 28.3 Intake and Output for Last 24 Hours 03/16/19 03/17/19 03/18/19 23:59 23:59 23:59 Intake Total 1461.25 / 1461.25 1450.00 / 1450.00 Output Total 1100 / 1100 Balance 1461.25 / 1461.25 350.00 / 350.00 General: Alert, Oriented x3, Cooperative HEENT: PERRLA Oral: Moist Mucosa Neurological: Cranial nerves II-XII grossly intact Psych/Mental Status: Normal Affect, Alert and oriented to time, place, person, mood and affect Laboratory Results 03/17/19 09:18: POC Glucose 138 H 03/18/19 05:33: WBC 10.0, RBC 4.07 L, Hgb 12.4 L, Hct 39.2 L, MCV 96.3 H, MCH 30.5, MCHC 31.6 L, RDW Std Deviation 49.7 H, RDW Coeff of Tata 14.1, Plt Count 194, MPV 9.7 03/18/19 05:33: Sodium 144, Potassium 4.4, Chloride 108 H, Carbon Dioxide 31.0, Anion Gap 5, BUN 11, Creatinine 0.86, Estim Creat Clear Calc 62.97, Est GFR (MDRD) Af Amer 109, Est GFR (MDRD) Non-Af 90, BUN/Creatinine Ratio 12.8, Glucose 88, Calcium 8.2 L Current Medications Acetaminophen (Tylenol) 1,000 mg PO Q8 [facility] Last Admin: 03/18/19 07:05 Dose: 1,000 mg Documented by: Amlodipine Besylate (Norvasc) 2.5 mg PO DAILY [facility] Aspirin (Aspirin) 325 mg PO BID [facility] Atenolol (Tenormin (Beta Prieto)) 50 mg PO DAILY [facility] Benzonatate (Tessalon Perle) 200 mg PO TID PRN PRN PRN Reason: COUGH Calcium/Vitamin D (Os-Clint 500mg + D) 1 tablet PO DAILY@0800 [facility] Etanercept (Enbrel) 50 mg SQ TH [facility] Fluticasone Propionate (Flonase Nasal Breaks) 1 spray NASAL DAILY [facility] Multivitamins/Minerals (Multivitamin With Minerals) 1 tablet PO DAILY@0800 [facility] Multivitamins/Minerals (Healthy Eyes) 1 capsule PO DAILY@1200 [facility] Ondansetron HCl (Zofran) 4 mg IV Q8H PRN PRN PRN Reason: NAUSEA Promethazine HCl (Phenergan) 12.5 mg IM Q6H PRN PRN; Protocol PRN Reason: NAUSEA/VOMITING Senna/Docusate Sodium (Senokot-S, Mary-Colace) 2 tablet PO BID [facility] Last Admin: 03/17/19 22:02 Dose: 2 tablet Documented by: Tramadol HCl (Ultram) 50 - 100 mg PO Q4H PRN PRN PRN Reason: Pain Score 1-10/10 Medical Necessity - Tobacco Use Smoking Status: Former smoker Tobacco Use: Non-smoker Assessment/Plan Status post right total knee arthroplasty Plan 1. Continue all pain medications as prescribed 2. Continue physical therapy, weight-bear as tolerated with walker 3. Aspirin 325 mg 1 p.o. every 12 hours x30 days for postop DVT prophylaxis 4. Encourage incentive spirometry 5. We will continue physical therapy at [facility] 6. We will follow-up with Dr. Salamanca as scheduled, see pink sheet 7. Discharge home this afternoon.
--- NOTE | 2019-03-18 07:50 | PCM.DC.TKR ---
Discharge Diet: No Restrictions Discharge Activity: May Not Drive, May Shower, Use Walker May shower in (days): 2 Ice area for (Minutes): 20 - each hour while awake. Weight Bearing Status: Weight bearing as tolerated Elevate: Operative Extremity Additional Activity Instructions:: Wear elastic stockings for 2 weeks after your surgery. Call your doctor if your incision/area has: Continuous Slow Oozing, Sudden Increased Bleeding, Increased Pain/ Swelling, Increased Redness, Foul Smelling Discharge Call your doctor if you observe: Fever of 101 or Higher, Coldness, Increased Pain - in extremity, Numbness or Tingling, Change in Color, Calf discomfort, Uncontrolled pain Change Dressing in (Days):: 0 - and daily as needed. Remove Dressing in (days):: 8 Cleanse incision/area with: Soap & Water Allergies/Adverse Reactions: Allergies piroxicam [From Feldene] Allergy (Verified 03/05/19 13:07) Unknown adhesive tape Adverse Reaction (Verified 03/05/19 13:07) Rash oxycodone Adverse Reaction (Verified 03/17/19 15:15) Other Medications to take at Discharge Amlodipine [Norvasc] 2.5 mg PO DAILY 07/11/18 Atenolol [Tenormin (beta jefry)] 50 mg PO DAILY 07/11/18 Calcium Carbonate/Vitamin D3 [Calcium 600 + Vit D Tablet] 1 each PO DAILY 07/11/18 Etanercept [Enbrel] 50 mg SQ TH 07/11/18 Multivitamin with Minerals [Multiple Vitamin] 1 each PO DAILY 07/11/18 Benzonatate [Tessalon Perle] 200 mg PO TID PRN PRN 03/05/19 Fluticasone 0.05% [Flonase Nasal Dinosaur] 1 spray NASAL DAILY 03/05/19 Guaifenesin/Pseudoephedrne HCl [Mucinex D ER 600-60 mg Tablet] 1 ea PO BID 03/05/19 Vit C/E/Zn/Coppr/Lutein/Zeaxan [Preservision Areds 2 Softgel] 1 ea PO DAILY 03/05/19 Acetaminophen [Tylenol] 1,000 mg PO Q8 #90 tab 03/18/19 Aspirin 325 mg PO BID #60 tab 03/18/19 traMADol [Ultram] 50 - 100 mg PO Q4H PRN PRN 7 Days #85 tab 03/18/19 The following prescriptions were given: Aspirin 325 mg PO BID #60 tab Prescription Printed Acetaminophen [Tylenol] 1,000 mg PO Q8 #90 tab Prescription Printed traMADol [Ultram] 50 - 100 mg PO Q4H PRN PRN 7 Days #85 tab PRN Reason: Pain Score 1-10/10 Prescription Printed Primary Care Physician: Miguel Hayes MD [Primary Care Provider] - Test Results: Test results from this visit will be discussed in further detail at your follow-up appointment, if applicable. Please Follow Up With: Corky Bueno PA-C When: see pink sheet
[2019-03-18 08:17] VITALS: BP 126/52; PULSE 71; RESP 16; TEMP 36.4; O2SAT 95
[2019-03-18] MEDS: Atenolol 50 MG Tablet PO (08:19)
[2019-03-18] MEDS: Calcium Carb/Vitamin D 1 TABLET Tablet PO (08:19)
[2019-03-18] MEDS: Multivitamins,Ther W-Minerals Tablet 1 TABLET PO (08:19)
[2019-03-18] MEDS: Aspirin 325 MG Tablet PO (08:19)
[2019-03-18] MEDS: amLODIPine 2.5 MG Tablet PO (08:19)
[2019-03-18] MEDS: Senna/Docusate Sodium 1 Tablet 2 TABLET PO (08:19)
[2019-03-18] MEDS: traMADol 50 MG Tablet PO ×2 (08:22→11:20)
--- NOTE | 2019-03-18 10:35 | CASEMGMT ---
RN CM Assessment Introduced role of RN CM to patient, patient Yesika Cavazos and patient Dtr Lauren at bedside.? Patient is alert, oriented and able?to participate in RN CM Assessment. ?Care providers, pharmacy, and demographics verified. Presentation: Scheduled Rt TKR Admit Dx: Intractable Rt knee pain Re-Admit: No. Admitted 07/23-07/24/18 for Lt TKR Barriers/Issues: None, has a good support system and patient and dtr able to assist PCP: Miguel Hayes Specialists: Ortho- Dr Salamanca, Rhem- Dr Richards Preferred Pharmacy: [facility] [place] Insurance: [facility], [facility] Rx Benefit:?Yes ?LNOK: Yesika Hussein LW/HPOA: Yes both, aware not on file with [facility] and to bring in when available. HPOA- Yesika Hussein Living Arrangements:? Lives with in a 2 story home, bedroom on upper level. Has a set up patient will stay during recovery. 3 steps to enter home. ADL?s: Independent with ambulation and ADLs. Seldom uses cane. Transportation: Both patient and drive DME: Cane, walker, shower chair, BSC, urinal, Lift chair, Leg environment coordinator HHC: None SNF: None Goal: Home with Outpatient PT-already set up with [facility]. Denies any additional needs, issues, or concerns with DC planning at this time. Aware CM remains available for any emerging needs. DC PLAN: Home with Outpatient PT. TONA Traore
[2019-03-18] MEDS: Multivitamin (Healthy Eyes) Capsule 1 CAP PO (11:20)
[2019-03-18 13:10] VITALS: BP 129/69; PULSE 69; RESP 14; TEMP 36.7; O2SAT 97
== END 2019-03-18 13:40 | disposition home or self-care (01) ==
LOC: SDC 10:56 → MS3 10:59
PROVIDERS: Admitting Provider Orthopaedic Surgery; Family Provider Family Medicine; PCP Family Medicine; Referring Provider Orthopaedic Surgery; Visit Provider Orthopaedic Surgery
PROC: (CPT 27447; principal; 2019-03-17 10:30)
DX: M17.11 Unilateral primary osteoarthritis, right knee (principal); J45.909 Unspecified asthma, uncomplicated; I10 Essential (primary) hypertension; L40.9 Psoriasis, unspecified; Z79.899 Other long term (current) drug therapy; Z79.82 Long term (current) use of aspirin; Z87.891 Personal history of nicotine dependence
CPT/HCPCS: 01400; 27447; 64447; 36415; 71046; 80048; 82962; 85025; 85027; 87081; 88305; 88311; 93005; 96361; 96365; 96366; 97110; 97162; 97166; 97530; 99218; C1776; J7120; G0378; G0379

== ENCOUNTER 2022-11-06 09:01 | Emergency (ER) | payer MEDICARE, OTHER, SELFPAY ==
[2022-11-06 09:02] VITALS: BP 149/70; PULSE 82; RESP 20; TEMP 36.6; O2SAT 94; BMI 28.2
--- NOTE | 2022-11-06 09:15 | RAD_ITS ---
STUDY: X-RAY CHEST REASON FOR EXAM: Male, 87 years old. Fever and cough TECHNIQUE: PA and lateral views of the chest. COMPARISON: 03/05/2019 FINDINGS: Lungs are mildly hyperexpanded with chronic interstitial changes, there is a superimposed lingular infiltrate or atelectasis new since the previous study. Follow-up recommended to ensure resolution. Normal size heart. Normal mediastinum and carlos enrique. Normal visualized pulmonary arteries. Normal visualized aortic arch and descending thoracic aorta. There are diffuse degenerative changes of the visualized thoracic spine. There is degenerative osteoarthritis of the bilateral shoulders. There is no demonstrated abnormality of the visualized soft tissue structures of the upper abdomen. RAD/Chest PA and Lateral IMPRESSION: Mildly hyperexpanded lungs with chronic interstitial changes and superimposed lingular atelectasis or infiltrate. Follow-up recommended to ensure resolution Electronically Signed: Jersey Martinez MD at 10:05 EDT ,
--- NOTE | 2022-11-06 09:17 | ED.VIS.DYS ---
HPI History of Present Illness Chief Complaint: Chest Other Informant: patient and family Associated Symptoms cough Chest Pain: Positive for None Narrative Narrative: Patient has had a nonproductive cough and chest congestion with wheezing for the past week. He states he saw his PCP 1 week ago soon after the onset and he was placed on both Augmentin and doxycycline after having an abnormal chest x-ray, and then they called a couple days ago since he was not getting better and they extended the antibiotics another 5 days so he is still on them and not getting better so they were advised to come to the ER. This is according to the patient and family member. Patient states she has no new symptoms. When asked if he has been short of breath, he states no, that his family member states yes, and then he states well maybe a little and admits to wheezing. He states they gave him an inhaler, and it does help temporarily. He did have a fever up to 102 at 1 point. He also states that as an outpatient he was tested negative for COVID and influenza. He has no history of asthma or COPD that he knows of, nor does he have any history of heart problems. [facility] Medical History (Updated 11/06/22 @ 11:[address] Shon Collazo MD) History of kidney cancer HLD (hyperlipidemia) HTN (hypertension) Psoriasis with arthropathy Transient global amnesia Home Medications amlodipine 2.5 mg tablet 2.5 mg PO DAILY BP 07/11/18 [History Last Taken 03/17/19] atenolol 50 mg tablet 50 mg PO DAILY BP 07/11/18 [History Last Taken 03/17/19] calcium carbonate-vitamin D3 600 mg-125 unit tablet (Calcium) 1 ea PO DAILY SUPPLEMENT 07/11/18 [History Last Taken Unknown] etanercept 50 mg/mL (1 mL) subcutaneous syringe (Enbrel) 50 mg SQ TH ARTHRITIS 07/11/18 [History Last Taken Unknown] multivitamin with minerals (Multiple Vitamin-Minerals tablet) 1 ea PO DAILY SUPPLEMENT 07/11/18 [History Last Taken Unknown] benzonatate 100 mg capsule 200 mg PO TID PRN PRN Cough 03/05/19 [History Last Taken Unknown] fluticasone propionate 50 mcg/actuation nasal spray,suspension 1 spray NASAL DAILY nasal congestion 03/05/19 [History Last Taken Unknown] pseudoephedrine-guaifenesin ER 60 mg-600 mg tablet,extend release 12hr 1 ea PO BID cough 03/05/19 [History Last Taken Unknown] vit C 250 mg-vit E 90 mg-zinc 40 mg-copper 1 ay-lgebnn-tbvphf capsule 1 ea PO DAILY eye vitamin 03/05/19 [History Last Taken Unknown] acetaminophen 500 mg tablet 1,000 mg PO Q8 #90 tabs 03/18/19 [Rx Last Taken Unknown] aspirin 325 mg tablet 325 mg PO BID #60 tabs 03/18/19 [Rx Last Taken Unknown] albuterol sulfate 90 mcg/actuation aerosol inhaler (Ventolin HFA) 2 puff inhalation Q4H PRN PRN Wheezing ##1 11/06/22 [Rx Last Taken Unknown] Allergy/AdvReac Type Severity Reaction Status Date / Time piroxicam [From Feldene] Allergy Unknown Verified 11/06/22 09:02 adhesive tape AdvReac Rash Verified 11/06/22 09:02 oxycodone AdvReac Other Verified 11/06/22 09:02 Social History Smoking Status: Former smoker ROS ROS ED Constitutional Constitutional ED: Reports fever(s); Denies chills ENT ENT ED: Denies ear pain, nasal congestion, rhinorrhea or sore throat Cardiovascular Cardiovascular: Denies chest pain, leg edema, orthopnea or palpitations Respiratory/Chest Respiratory/Chest: Reports cough, dyspnea and wheezing; Denies orthopnea, portable oxygen @ home or sputum Gastrointestinal Gastrointestinal: Denies abdominal pain, diarrhea, nausea or vomiting Genitourinary Genitourinary ED: Denies dysuria or hematuria Musculoskeletal Musculoskeletal: Denies myalgias or neck pain Integumentary Denies abscess or rash Neurologic Neurologic: Denies headache(s), paresthesias or weakness Psychiatric Psychiatric: Denies depression or suicidal thoughts Endocrine Endocrinology: Denies polydipsia or polyuria EXAM Physical Exam Const Vital Signs: 11/06/22 09:02 11/06/22 09:27 11/06/22 09:45 Temperature 97.9 F Temperature Source Temporal Pulse Rate 82 80 Respiratory Rate 20 H 18 Respiratory Effort Respiratory Pattern Normal Blood Pressure 149/70 H Blood Pressure Mean 96 Pulse Ox 94 Oxygen Delivery Method Room Air Room Air 11/06/22 09:45 11/06/22 09:59 11/06/22 11:40 Temperature 98 F Temperature Source Oral Pulse Rate 65 80 Respiratory Rate 20 H 18 Respiratory Effort Normal Short of Breath Respiratory Pattern Normal Normal Blood Pressure 156/86 H Blood Pressure Mean 109 Pulse Ox 93 Oxygen Delivery Method Room Air Positive well nourished and well developed General Appearance ED: well developed and NAD HEENT Reports moist mucous membranes normocephalic and atraumatic Face and Sinus: normal facial exam and sinuses nontender; Negative for facial tenderness Throat: Negative for posterior oropharynx abnormal Eyes PERRL and EOMs intact bilaterally Neck no lymphadenopathy, supple, no meningeal signs and no JVD Resp normal respiratory effort Resp Narrative: Expiratory wheezes in all kahn, mild-moderate, symmetric, no other rales or rhonchi. Cardio no murmurs Rate: regular rate; Negative for tachycardic Rhythm: regular rhythm GI non-tender and non-distended Auscultation: normoactive bowel sounds Palpation: soft Back/Spine no CVA tenderness and normal to inspection Extremity normal to inspection General Extremety ED: Negative for edema General Extremity: Negative for edema Neuro oriented x3, CN's II-XII intact bilaterally and no sensory deficits noted Sensorium / Orientation: alert Motor Exam: strength 5/5 throughout Psych mental status grossly normal Skin no wounds Lesions: no lesions Rashes: no rashes MDM MDM MDM Narrative Medical decision making narrative: 2 view chest x-ray on my interpretation shows some chronic abnormalities but I have nothing old to compare it to, I see no acute consolidations. I did read the radiology interpretation, which discusses abnormality in the lingula not able to rule out pneumonia versus atelectasis. I reviewed his labs which are unremarkable. I do not think he needs any other test right now, he does not appear to be in acute CHF, he does not have cardiomegaly on the chest x-ray, and he does not have any other significant findings of heart failure here clinically. Furthermore, he is significantly better after a duo nebulizer treatment, on reexamination he still has some end expiratory wheezes but he is wheezing less than before and he agrees with that. Oxygenation is excellent, the rest of his vital signs are noted and unremarkable. I think he probably has a viral syndrome causing wheezy bronchitis. I discussed this with him and the family, I understand they are concerned about the fact that he is on antibiotics and not getting better, and it may very well be because he does not have a bacterial infection, but I do not necessarily think it is unreasonable to cover him empirically with antibiotics especially given what the chest x-ray looks like. Given all this I thought it would be reasonable to send a viral panel. If it is positive for a common respiratory virus, this would be a good reason to stop the antibiotics. They understand all that. He returned negative, although they left prior to this, due to wanting to be discharged and not wait for the results, I advise continuing antibiotics he is on and not changing any of that. Will follow-up. History & Record Review Additional record(s) reviewed:: No prior records (Within past 2 years) Lab Data Attestation: I reviewed the patient's lab results. Labs: Laboratory Results - last 24 hr 11/06/22 11/06/22 09:45 09:45 WBC 11.0 RBC 4.30 L Hgb 13.2 Hct 39.8 L MCV 92.6 MCH 30.7 MCHC 33.2 RDW Std Deviation 44.1 H RDW Coeff of Tata 13.1 Plt Count 315 MPV 9.6 Immature Gran % (Auto) 0.800 Neut % (Auto) 82.4 H Lymph % (Auto) 6.1 L Kerr % (Auto) 8.4 Eos % (Auto) 2.1 Baso % (Auto) 0.2 Absolute Neuts (auto) 9.1 H Absolute Lymphs (auto) 0.67 L Nucleated RBC % 0 Sodium 134 L Potassium 4.2 Chloride 99 Carbon Dioxide 29.0 Anion Gap 6 BUN 15 Creatinine 0.95 Estim Creat Clear Calc 53.00 Est GFR (MDRD) Af Amer 96 Est GFR (MDRD) Non-Af 79 BUN/Creatinine Ratio 15.7 Glucose 142 H Calcium 9.3 Radiography Diagnostic Testing: Clinical Impression(s) from Imaging Studies Chest X-Ray 11/06/22 09:15 IMPRESSION: Mildly hyperexpanded lungs with chronic interstitial changes and superimposed lingular atelectasis or infiltrate. Follow-up recommended to ensure resolution Electronically Signed: Jersey Martinez MD at 10:05 EDT , Discharge Plan Triage Chief Complaint: Chest Other ED Provider: Shon Collazo Dx/Rx/DC Orders Clinical Impression: Acute wheezy bronchitis Instructions: ED Bronchitis with Wheezing (Adult) Prescriptions: New albuterol sulfate [Ventolin HFA] 90 mcg/actuation HFA aerosol inhaler 2 puff inhalation Q4H PRN PRN (Reason: Wheezing) Qty: 1 0RF No Action amlodipine 2.5 MG tablet 2.5 mg PO DAILY multivitamin with minerals [Multiple Vitamin-Minerals] 1 EACH tablet 1 ea PO DAILY atenolol 50 MG tablet 50 mg PO DAILY etanercept [Enbrel] 50 MG/ML syringe 50 mg SQ TH calcium carbonate-vitamin D3 [Calcium 600 + D(3)] 1 EACH tablet 1 ea PO DAILY pseudoephedrine-guaifenesin 1 EACH tablet extended release 12 hr 1 ea PO BID benzonatate 100 MG capsule 200 mg PO TID PRN PRN (Reason: Cough) fluticasone propionate 1 SPRAY spray,suspension 1 spray NASAL DAILY vit C,G-Bx-jaacr-lutein-zeaxan 1 EACH capsule 1 ea PO DAILY aspirin 325 MG tablet 325 mg PO BID Qty: 60 0RF acetaminophen 500 MG tablet 1,000 mg PO Q8 Qty: 90 0RF Primary Care Provider: Miguel Hayes Referrals: Miguel Hayes MD [Primary Care Provider] - 3-5 Days if not improving Disposition Disposition: Home, Self Care Discharge Date/Time: 11/06/22 11:55
[2022-11-06] MEDS: Ipratropium/Albuterol Sulfate 3 ML AMPUL.NEB INHALATION (09:25)
[2022-11-06 09:27] VITALS: PULSE 80; RESP 18
[2022-11-06 09:45] VITALS: BP 156/86; PULSE 65; RESP 20; TEMP 36.6; O2SAT 93
[2022-11-06 09:49] LABS: Absolute Lymphocyte Count 0.67 X10^3/uL (0.83-4.51); Absolute Neutrophil Count 9.1 X10^3/uL (2.0-7.7); Basophil# 0.02 X10^3/uL; Basophil% 0.2 % (0-1); Eosinophil# 0.23 X10^3/uL; Eosinophils% 2.1 % (0-5); Hematocrit 39.8 % (40-54); Hemoglobin 13.2 g/dL (13.0-16.5); Lymphocyte # 0.67 X10^3/ul (0.83-4.51); Lymphocyte % 6.1 % (19-41); Mean Corp Hgb Conc 33.2 g/dL (32-36); Mean Corpuscular Hgb 30.7 pg (27.0-32.0); Mean Corpuscular Volume 92.6 fL (80-94); Mean Platelet Vol. 9.6 fl (6.2-12.0); Monocyte# 0.93 X10^3/uL; Monocyte% 8.4 % (0-10); NRBC Flagged by Analyzer 0 % (0-5); Neutrophil # 9.09 X10^3/uL (2.7-7.7); Neutrophil % 82.4 % (47-70); Platelet Count 315 K/mm3 (150-450); RBC Distribution Width CV 13.1 % (11.6-14.6); RBC Distribution Width SD 44.1 fl (35.1-43.9)
[2022-11-06 10:06] LABS: Anion Gap 6 (5-15); BUN 15 mg/dL (7-18); BUN/Creat Ratio 15.7 RATIO (10-20); Calcium,Total 9.3 mg/dL (8.5-10.1); Chloride 99 mmol/L (98-107); Creatinine, Serum 0.95 mg/dL (0.70-1.30); EST Glomerular Filtration Rate 79 mL/min (>60); Est Glom Filt Rate - Afr Amer 96 mL/min (>60); Glucose 142 mg/dL (74-106); Potassium 4.2 mmol/L (3.5-5.1); Sodium Level 134 mmol/L (136-145)
[2022-11-06] MEDS: Albuterol 2.5 MG/3 ML VIAL.NEB. INHALATION (11:39)
[2022-11-06 11:40] VITALS: PULSE 80; RESP 18
== END 2022-11-06 11:55 | disposition home or self-care (01) ==
PROVIDERS: Emergency Provider Emergency Medicine; PCP Family Medicine; Visit Provider Emergency Medicine
DX: J20.9 Acute bronchitis, unspecified (principal); Z87.891 Personal history of nicotine dependence; I10 Essential (primary) hypertension; E78.5 Hyperlipidemia, unspecified; Z85.528 Personal history of other malignant neoplasm of kidney; Z79.899 Other long term (current) drug therapy; Z79.82 Long term (current) use of aspirin
CPT/HCPCS: 71046; 80048; 85025; 87633; 94640; 99282

== ENCOUNTER 2023-05-19 11:25 | Observation (INO) | payer MEDICARE, OTHER, SELFPAY ==
[2023-05-19] VITALS (7 sets, daily range): BP systolic 124–177; BP diastolic 78–113; PULSE 62–71; RESP 16–18; TEMP 36.2–36.6; O2SAT 95–97; BMI 30.2; BMI 27.8
--- NOTE | 2023-05-19 11:40 | CT_ITS ---
EXAM: CT HEAD AND CERVICAL SPINE WITHOUT INTRAVENOUS CONTRAST CLINICAL INDICATION: trauma , pain. TECHNIQUE: Helically acquired images were obtained of the head/brain and cervical spine without intravenous contrast. 2D reformatted images were reviewed. This CT exam was performed using one or more of the following dose reduction techniques: automated exposure control, adjustment of the mA and/or kV according to patient size, and/or use of iterative reconstruction technique. COMPARISON: No relevant prior studies available. FINDINGS: BRAIN AND EXTRA-AXIAL SPACES: There is non-specific periventricular hypoattenuation which is most commonly related to chronic microvascular ischemic disease in a patient of this age. There is no mass, mass-effect, or shift of the midline structures. No evidence of acute infarct or acute intracranial hemorrhage. There is no evidence of pathologic extra-axial fluid. There is no hydrocephalus. Patent basal cisterns. Posterior fossa structures are unremarkable. SKULL: No significant abnormality. No discrete lytic or blastic abnormalities. SINUSES: No significant findings. MASTOID AIR CELLS: No significant abnormality. Clear. ORBITS: Bilateral ocular lens extraction presumptively for the treatment of cataracts. Otherwise, no acute orbital pathology. VERTEBRAE: Severe hypertrophic changes around the odontoid and the anterior arch of C1. Relative anterior translation of C1 in relation to C2 secondary to arthritic change. Rigid spine with ankylosis between C2 through the visualized upper thoracic spine with bony fusion across the facet joints and the disc annuli. Some areas of bony fusion across the disc spaces is present. Straightening of the cervical lordosis. No acute fracture or traumatic subluxation is identified. DISCS/SPINAL CANAL/NEURAL FORAMINA: Mild multilevel spinal canal and neural foraminal stenosis secondary to facet and uncovertebral joint arthrosis. No significant intervertebral disc height loss is present throughout the cervical region. SOFT TISSUES: Right frontal scalp and right periorbital soft tissue swelling. No prevertebral soft tissue swelling. VASCULATURE: Arteriosclerosis. Vascular calcifications in the neck. LYMPH NODES: No significant abnormality. No cervical adenopathy. LUNG APICES: Nonspecific opacity at the right lung apex. OTHER FINDINGS: Bilateral TMJ arthrosis. CT/Brain/Head without Contrast IMPRESSION: 1. Right frontal scalp and right periorbital soft tissue swelling. No CT evidence of acute intracranial pathology. Chronic microvascular ischemic changes. 2. Findings consistent with ankylosing spondylitis. 3. Hypertrophic changes at the C1-C2 articulations associated with anterior subluxation of C1 in relation to C2 and severe canal stenosis at the level of C1. Consider follow-up MRI and neurosurgical consultation. No evidence of acute cervical spine fracture. Electronically Signed: Marcin Stroud DO at 12:21 EST ,
--- NOTE | 2023-05-19 11:40 | CT_ITS ---
ACR Level 3 findings have been noted. An addendum which confirms receipt of the report will follow. EXAM: CT HEAD AND CERVICAL SPINE WITHOUT INTRAVENOUS CONTRAST CLINICAL INDICATION: trauma , pain. TECHNIQUE: Helically acquired images were obtained of the head/brain and cervical spine without intravenous contrast. 2D reformatted images were reviewed. This CT exam was performed using one or more of the following dose reduction techniques: automated exposure control, adjustment of the mA and/or kV according to patient size, and/or use of iterative reconstruction technique. COMPARISON: No relevant prior studies available. FINDINGS: BRAIN AND EXTRA-AXIAL SPACES: There is non-specific periventricular hypoattenuation which is most commonly related to chronic microvascular ischemic disease in a patient of this age. There is no mass, mass-effect, or shift of the midline structures. No evidence of acute infarct or acute intracranial hemorrhage. There is no evidence of pathologic extra-axial fluid. There is no hydrocephalus. Patent basal cisterns. Posterior fossa structures are unremarkable. SKULL: No significant abnormality. No discrete lytic or blastic abnormalities. SINUSES: No significant findings. MASTOID AIR CELLS: No significant abnormality. Clear. ORBITS: Bilateral ocular lens extraction presumptively for the treatment of cataracts. Otherwise, no acute orbital pathology. VERTEBRAE: Severe hypertrophic changes around the odontoid and the anterior arch of C1. Relative anterior translation of C1 in relation to C2 secondary to arthritic change. Rigid spine with ankylosis between C2 through the visualized upper thoracic spine with bony fusion across the facet joints and the disc annuli. Some areas of bony fusion across the disc spaces is present. Straightening of the cervical lordosis. No acute fracture or traumatic subluxation is identified. DISCS/SPINAL CANAL/NEURAL FORAMINA: Mild multilevel spinal canal and neural foraminal stenosis secondary to facet and uncovertebral joint arthrosis. No significant intervertebral disc height loss is present throughout the cervical region. SOFT TISSUES: Right frontal scalp and right periorbital soft tissue swelling. No prevertebral soft tissue swelling. VASCULATURE: Arteriosclerosis. Vascular calcifications in the neck. LYMPH NODES: No significant abnormality. No cervical adenopathy. LUNG APICES: Nonspecific opacity at the right lung apex. OTHER FINDINGS: Bilateral TMJ arthrosis. CT/Spine Cervical without Contras IMPRESSION: 1. Right frontal scalp and right periorbital soft tissue swelling. No CT evidence of acute intracranial pathology. Chronic microvascular ischemic changes. 2. Findings consistent with ankylosing spondylitis. 3. Hypertrophic changes at the C1-C2 articulations associated with anterior subluxation of C1 in relation to C2 and severe canal stenosis at the level of C1. Consider follow-up MRI and neurosurgical consultation. No evidence of acute cervical spine fracture. Electronically Signed: Marcin Stroud DO at 12:23 EST ,
--- NOTE | 2023-05-19 11:43 | EDS_ITS ---
HPI History of Present Illness Chief Complaint: Syncope Informant: patient, family and EMS Onset/Context/Timing Onset: Today Narrative Narrative: Patient presents via EMS after a syncopal episode. He reportedly was in the kitchen when he had a syncopal episode. Patient's family states he was out for a minute or 2. Patient does not remember anything that happened. He does not member feeling lightheaded or dizzy or having palpitations. At this time he complains only of some neck pain from the c-collar that was put on him. He does have abrasions to the right jehovah's witness area. Patient is not on any anticoagulants. Family did not report any seizure activity. [facility] Medical History History of kidney cancer HLD (hyperlipidemia) HTN (hypertension) Psoriasis with arthropathy Transient global amnesia Home Medications amlodipine 2.5 mg tablet 2.5 mg PO DAILY BP 07/11/18 [History Last Taken 03/17/19] atenolol 50 mg tablet 50 mg PO DAILY BP 07/11/18 [History Last Taken 03/17/19] Allergy/AdvReac Type Severity Reaction Status Date / Time piroxicam [From Feldene] Allergy Unknown Verified 05/19/23 11:26 adhesive tape AdvReac Rash Verified 05/19/23 11:26 oxycodone AdvReac Other Verified 05/19/23 11:26 Surgical History (Updated 05/19/23 @ 14:[address] Zahira Hernandez DO) Total knee replacement status Social History (Updated 05/19/23 @ 14:[address] Zahira Hernandez DO) household members: spouse housing: house Smoking Status: Former smoker alcohol intake: current alcohol intake frequency: holidays/special occasions only substance use type: does not use ROS ROS ED Constitutional Constitutional ED: Denies chills or fever(s) Eyes Eyes: Denies change in vision or discharge from eye(s) ENT ENT ED: Denies discharge from eye(s), rhinorrhea or sore throat Cardiovascular Cardiovascular: Denies chest pain or palpitations Respiratory/Chest Respiratory/Chest: Denies cough or dyspnea Gastrointestinal Gastrointestinal: Denies abdominal pain, nausea or vomiting Genitourinary Genitourinary ED: Denies dysuria Musculoskeletal Musculoskeletal: Reports neck pain; Denies back pain or extremity pain Integumentary Reports Abrasions; Denies rash Neurologic Neurologic: Denies headache(s) or weakness Psychiatric Psychiatric: Denies anxiety or depression Allergic/Immunologic Allergic/Immunologic ED: Denies lip swelling or urticaria EXAM Physical Exam Const Vital Signs: 05/19/23 11:26 05/19/23 11:32 05/19/23 13:25 Temperature 97.2 F L Temperature Source Temporal Pulse Rate 71 Respiratory Rate 18 Respiratory Effort Normal Non-Labored Respiratory Pattern Normal Blood Pressure 156/104 H 141/113 H Blood Pressure Mean 121 122 Pulse Ox 96 Oxygen Delivery Method Room Air Positive well nourished and well developed General Appearance ED: well developed HEENT HEENT Narrative: Abrasions with small hematoma over the right jehovah's witness. Eyes EOMs intact bilaterally Neck Neck Narrative: Mild upper C-spine tenderness. C-collar remains in place. Chest Wall inspection of chest normal and palpation of chest normal Resp normal respiratory effort and clear to auscultation bilaterally Cardio regular rate and regular rhythm GI non-tender Palpation: soft Extremity normal to inspection Neuro oriented x3 Neuro Narrative: No focal neurologic deficits. Psych mental status grossly normal Skin Skin Narrative: Abrasions to the jehovah's witness as noted above. 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 EKG obtained to evaluate for cardiac arrhythmia/ischemia. Chest x-ray obtained to evaluate for acute lung pathology, cardiac size, or mediastinal abnormality. CT scan of the head and C-spine obtained to evaluate for fracture, hematoma, acute bleed. Labwork obtained to evaluate for leukocytosis, anemia, and electrolyte derangement. History & Record Review Discussion w/independent historian: EMS personnel, Patient, Family and Significant other Additional record(s) reviewed:: Prior outpatient record, Prior ED visit and Prior labs Lab Data Attestation: I reviewed the patient's lab results. Labs: Laboratory Results - last 24 hr 05/19/23 11:40 WBC 6.8 RBC 5.04 Hgb 15.5 Hct 47.9 MCV 95.0 H MCH 30.8 MCHC 32.4 RDW Std Deviation 48.7 H RDW Coeff of Tata 14.0 Plt Count 226 MPV 9.6 Immature Gran % (Auto) 0.100 Neut % (Auto) 60.4 Lymph % (Auto) 26.8 [place] % (Auto) 8.6 Eos % (Auto) 3.5 Baso % (Auto) 0.6 Absolute Neuts (auto) 4.1 Absolute Lymphs (auto) 1.83 Nucleated RBC % 0 Sodium 138 Potassium 4.4 Chloride 104 Carbon Dioxide 31.0 Anion Gap 3 L BUN 18 Creatinine 1.18 Estim Creat Clear Calc 42.67 Est GFR (MDRD) Af Amer 75 Est GFR (MDRD) Non-Af 62 BUN/Creatinine Ratio 15.3 Glucose 156 H Calcium 9.3 Total Bilirubin 0.70 Direct Bilirubin 0.18 AST 19 ALT 26 Alkaline Phosphatase 85 Troponin I High Sens 9 Total Protein 7.2 Albumin 3.9 Globulin 3.3 Radiography Chest X-Ray - ED: 1 View, Read by ED Physician and Chronic Changes Diagnostic Testing: Clinical Impression(s) from Imaging Studies Brain CT 05/19/23 11:40 IMPRESSION: 1. Right frontal scalp and right periorbital soft tissue swelling. No CT evidence of acute intracranial pathology. Chronic microvascular ischemic changes. 2. Findings consistent with ankylosing spondylitis. 3. Hypertrophic changes at the C1-C2 articulations associated with anterior subluxation of C1 in relation to C2 and severe canal stenosis at the level of C1. Consider follow-up MRI and neurosurgical consultation. No evidence of acute cervical spine fracture. Electronically Signed: Marcin Stroud DO at 12:21 EST , Cervical Spine CT 05/19/23 11:40 IMPRESSION: 1. Right frontal scalp and right periorbital soft tissue swelling. No CT evidence of acute intracranial pathology. Chronic microvascular ischemic changes. 2. Findings consistent with ankylosing spondylitis. 3. Hypertrophic changes at the C1-C2 articulations associated with anterior subluxation of C1 in relation to C2 and severe canal stenosis at the level of C1. Consider follow-up MRI and neurosurgical consultation. No evidence of acute cervical spine fracture. Electronically Signed: Marcin Stroud DO at 12:23 EST , ADDENDUM: 05/19/23 1238 IMPRESSION: 1. Right frontal scalp and right periorbital soft tissue swelling. No CT evidence of acute intracranial pathology. Chronic microvascular ischemic changes. 2. Findings consistent with ankylosing spondylitis. 3. Hypertrophic changes at the C1-C2 articulations associated with anterior subluxation of C1 in relation to C2 and severe canal stenosis at the level of C1. Consider follow-up MRI and neurosurgical consultation. No evidence of acute cervical spine fracture. N.B. : Myrna Basurto MD, confirmed on 05/19/2023 12:31:47 (ET) that the healthcare facility has received the radiology report. Electronically Signed: aMrcin Parish DO Luanne at 12:23 EST , ADDENDUM: 05/19/23 1250 IMPRESSION: undefined ADDENDUM: 05/19/23 1304 IMPRESSION: undefined Chest X-Ray 05/19/23 12:04 IMPRESSION: Left basilar pulmonary opacities similar to the prior examination may be scarring or atelectasis rather than pneumonia. Electronically Signed: Marcin VTulio Stroud DO at 12:35 EST , EKG Initial EKG: Attestation: I personally reviewed and interpreted this EKG as follows: Interpretation: Sinus Rhythm (Sinus at 67 with PAC. No acute ischemia.) Treatment and Re-Evaluation :: CBC was normal white count 6.8 with a hemoglobin of 15.5. Chemistry studies unremarkable other than a glucose of 156. LFTs normal. Initial troponin normal at 9. Portable chest x-ray per my interpretation was chronic changes with no focal infiltrate. Radiology interpretation is reviewed. CT scan of the head reveals right frontal scalp and right periorbital soft tissue swelling. No acute intracranial pathology. CT of the C-spine initially read as hypertrophic changes at C1-C2 articulations associated with anterior subluxation of C1 in relation to C2 and severe canal stenosis. I did note the patient had chronic changes on some prior imaging and these images were then sent so that the radiologist could compare. After comparison he states that the C-spine findings are unchanged since 2011. On repeat examination patient remains comfortable with a normal neuroexam. He complains only of anterior neck pain from the c- collar and no posterior neck pain. He is removed from the c-collar. We discussed his syncopal episode. He did not have significant prodrome as far as palpitations or lightheadedness. He states when he got up this morning he felt like he was run over by a truck. I will swab him for COVID and influenza I discussed with hospitalist regarding observation. Discharge Plan Dx/Rx/DC Orders Clinical Impression: Cervical stenosis of spinal canal, Syncope, Contusion of head Disposition Disposition: Acute Care Hospital [facility] Discharge Date/Time: 05/19/23 14:31
[2023-05-19 11:52] LABS: Absolute Lymphocyte Count 1.83 X10^3/uL (0.83-4.51); Absolute Neutrophil Count 4.1 X10^3/uL (2.0-7.7); Basophil# 0.04 X10^3/uL; Basophil% 0.6 % (0-1); Eosinophil# 0.24 X10^3/uL; Eosinophils% 3.5 % (0-5); Hematocrit 47.9 % (40-54); Hemoglobin 15.5 g/dL (13.0-16.5); Lymphocyte # 1.83 X10^3/ul (0.83-4.51); Lymphocyte % 26.8 % (19-41); Mean Corp Hgb Conc 32.4 g/dL (32-36); Mean Corpuscular Hgb 30.8 pg (27.0-32.0); Mean Platelet Vol. 9.6 fl (6.2-12.0); Monocyte# 0.59 X10^3/uL; Monocyte% 8.6 % (0-10); NRBC Flagged by Analyzer 0 % (0-5); Neutrophil # 4.13 X10^3/uL (2.7-7.7); Neutrophil % 60.4 % (47-70); Platelet Count 226 K/mm3 (150-450); RBC Distribution Width SD 48.7 fl (35.1-43.9); Red Blood Count 5.04 M/mm3 (4.6-6.2); White Blood Count 6.8 K/mm3 (4.4-11.0)
--- OUTSIDE RECORDS SUMMARY | 2023-05-19 11:56 | XMS RPT_ITS | CCD ---
Author Name Unknown Address [address] [place] [address] [address] [place] [address] Organization [facility] Care Team Providers Care Safety Coordinator Name Role Phone Alejandro Mendoza MD Primary Care Provider JACKELIN PAULINO Referring Unavailable ALEJANDRO MENDOZA Primary Care Unavailable JACKELIN PAULINO Attending Unavailable ALEJANDRO MENDOZA Primary Care Unavailable WIL NUNES Attending Unavailable ALEJANDRO MENDOZA Primary Care Unavailable WIL NUNES Referring Unavailable ALEJANDRO MENDOZA Primary Care Unavailable WIL NUNES Attending Unavailable ALEJANDRO MENDOZA Primary Care Unavailable MARSHALL DANIEL Referring Unavailable ALEJANDRO MENDOZA Primary Care Unavailable ALEJANDRO MENDOZA Referring Unavailable ALEJANDRO MENDOZA Primary Care Unavailable ALEJANDRO MENDOZA Attending Unavailable ALEJANDRO MENDOZA Primary Care Unavailable ALEJANDRO MENDOZA Referring Unavailable ALEJANDRO MENDOZA Primary Care Unavailable MARSHALL DANIEL Referring Unavailable ALEJANDRO MENDOZA Primary Care Unavailable Allergies Allergy Classification Reported Allergen(s) Allergy Type Date of Onset Reaction(s) Facility (18 sources) Piroxicam; Translations: [PIROXICAM] Drug Allergy 04-26-2006 Unknown [facility] Work Phone: Medications Current Medications Medication Drug Class(es) Dates Sig (Normalized) Sig (Original) amoxicillin 875 mg / clavulanate 125 mg oral tablet (2 sources) Penicillin-class Antibacterial Start: 11-03-2022 End: 11-08-2022 take 1 tablet by mouth twice daily amoxicillin-clavu lanic acid (AUGMENTIN) 875-125 mg per tablet Indications: Community acquired pneumonia of left lung, unspecified part of lung Take 1 tablet by mouth twice daily for 5 days. 10 tablet 0 11/03/2022 11/08/2022 Active Completed/Discontinued Medications Medication Drug Class(es) Dates Sig (Normalized) Sig (Original) amLODIPine 2.5 mg oral tablet (19 sources) Dihydropyridine Calcium Channel Prieto Start: 03-06-2023 take 1 tablet by mouth once daily amLODIPine (NORVASC) 2.5 mg tablet Take 1 tablet by mouth once daily. 90 tablet 1 03/06/2023 Active Problems Active Problems Problem Classification Problem Date Documented Da te Episodic/Chronic Disorders of lipid metabolism (20 sources) Dyslipidemia; Translations: [Hyperlipidemia, unspecified] Onset: 07-23-2015 Chronic Essential hypertension (20 sources) Benign essential hypertension; Translations: [Essential (primary) hypertension] Onset: 06-20-2007 Chronic Hyperplasia of prostate (19 sources) Benign prostatic hyperplasia; Translations: [Benign prostatic hyperplasia without lower urinary tract symptoms] Onset: 12-10-2008 01-02-2017 Chronic Melanomas of skin (20 sources) Melanoma in situ, unspecified; Translations: [Melanoma of skin, site unspecified] Onset: 08-30-2021 08-30-2021 Chronic Other inflammatory condition of skin (20 sources) Psoriatic arthritis; Translations: [Arthropathic psoriasis, unspecified] Chronic Other inflammatory condition of skin (17 sources) Psoriasis; Translations: [Other psoriasis] Onset: 06-19-2007 12-30-2015 Chronic Other inflammatory condition of skin (1 source) Other psoriatic arthropathy; 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)] Onset: 07-04-2022 Chronic Other lower respiratory disease (1 source) Cough; Translations: [Acute cough] Episodic Other upper respiratory disease (18 sources) Vasomotor rhinitis; Translations: [Vasomotor rhinitis] Onset: 07-05-2016 12-31-2016 Chronic Pneumonia (except that caused by tuberculosis or sexually transmitted disease) (1 source) Community acquired pneumonia; Translations: [Pneumonia, unspecified organism] Episodic Retinal detachments; defects; vascular occlusion; and retinopathy (18 sources) Degenerative disorder of macula ; Translations: [Unspecified macular degeneration] Onset: 07-16-2020 07-16-2020 Chronic Transient cerebral ischemia (17 sources) Transient global amnesia; 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] Onset: 12-31-2014 05-16-2021 Chronic Unclassified (1 source) Acute cough; Translations: [Acute cough] Onset: 11-02-2022 Past or Other Problems Problem Classification Problem Date Documented Da te Episodic/Chronic Administrative/social admission (14 sources) Advance directive discussed with patient; Translations: [Other specified counseling] Onset: 03-23-2022 Episodic Allergic reactions (17 sources) Radiation-induced dermatosis; Translations: [Other skin changes due to chronic exposure to nonionizing radiation] Onset: 06-19-2007 12-30-2015 Episodic Cancer of kidney and renal pelvis (17 sources) H/O: malignant neoplasm; Translations: [Personal history of other malignant neoplasm of kidney] Onset: 11-05-2008 12-30-2015 Episodic Genitourinary symptoms and ill-defined conditions (18 sources) Proteinuria; Translations: [Proteinuria, unspecified] Onset: 01-02-2017 01-02-2017 Episodic Other aftercare (1 source) 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; Translations: [On angiotensin receptor blockers (ARB)] Onset: 12-04-2022 Episodic Other diseases of kidney and ureters (20 sources) Renal impairment; Translations: [Disorder of kidney and ureter, unspecified] Onset: 02-19-2021 Episodic Other non-traumatic joint disorders (17 sources) Pain in right knee; Translations: [Pain in joint, lower leg] Onset: 07-11-2017 07-03-2018 Episodic Residual codes; unclassified (13 sources) Active living will ; Translations: [Other specified health status] Onset: 03-23-2022 Episodic Screening and history of mental health and substance abuse codes (17 sources) Ex-smoker; Translations: [Personal history of nicotine dependence] Onset: 01-02-2017 02-19-2021 Episodic Viral infection (17 sources) Verruca vulgaris; Translations: [Viral wart, unspecified] Onset: 06-19-2007 12-30-2015 Episodic Results Test Name Value Interpretation Reference Range Facil ity Vital Signs Date Time Vital Sign Value Performing Clinician Lynne chavez 04-02-2023 15:15-0500 Diastolic blood pressure 82 mm[Hg] Alejandro Mendoza MD Work Phone: [facility] 04-02-2023 15:15-0500 Systolic blood pressure 130 mm[Hg] Alejandro Mendoza MD Work Phone: [facility] 04-02-2023 14:32-0500 Body height 172.1 cm Alejandro Mendoza MD Work Phone: [facility] 04-02-2023 14:32-0500 Body weight 86.18 kg Alejandro Mendoza MD Work Phone: [facility] 04-02-2023 14:32-0500 Heart rate 70 /min Alejandro Mendoza MD Work Phone: [facility] 04-02-2023 14:32-0500 Respiratory rate 22 /min Alejandro Mendoza MD Work Phone: [facility] 10-23-2022 11:39-0400 Diastolic blood pressure 66 mm[Hg] Wil Nunes PA-C Work Phone: [facility] 10-23-2022 11:39-0400 Heart rate 60 /min Wil Nunes PA-C Work Phone: [facility] 10-23-2022 11:39-0400 Systolic blood pressure 118 mm[Hg] Wil Nunes PA-C Work Phone: [facility] 10-23-2022 11:27-0400 Body temperature 97.59 [degF] Wil Nunes PA-C Work Phone: [facility] 10-23-2022 11:27-0400 Body weight 85.73 kg Wil Nunes PA-C Work Phone: [facility] 10-23-2022 11:27-0400 Respiratory rate 16 /min Wil Nunes PA-C Work Phone: [facility] 09-21-2022 12:50-0400 Diastolic blood pressure 96 mm[Hg] Wil Nunes PA-C Work Phone: [facility] 09-21-2022 12:50-0400 Heart rate 61 /min Wil Nunes PA-C Work Phone: [facility] 09-21-2022 12:50-0400 Systolic blood pressure 160 mm[Hg] Wil Nunes PA-C Work Phone: [facility] 09-21-2022 12:14-0400 Body temperature 97.81 [degF] Wil Des PA-C Work Phone: [facility] 09-21-2022 12:14-0400 Body weight 87.54 kg Wil Des PA-C Work Phone: [facility] 09-21-2022 12:14-0400 Respiratory rate 18 /min Wil Nunes PA-C Work Phone: [facility] 03-23-2022 13:29-0400 Diastolic blood pressure 80 mm[Hg] Alejandro Mendoza MD Work Phone: [facility] 03-23-2022 13:29-0400 Systolic blood pressure 138 mm[Hg] Alejandro Mendoza MD Work Phone: [facility] 03-23-2022 12:57-0400 Body height 172.1 cm Alejandro Mendoza MD Work Phone: [facility] 03-23-2022 12:57-0400 Body weight 84.82 kg Alejandro Mendoza MD Work Phone: [facility] 03-23-2022 12:57-0400 Heart rate 72 /min Alejandro Mendoza MD Work Phone: [facility] 03-23-2022 12:57-0400 Respiratory rate 16 /min Alejandro Mendoza MD Work Phone: [facility] 03-13-2022 09:15-0400 Body temperature 96.8 [degF] Richard Rodrigues MD Work Phone: [facility] 03-13-2022 09:15-0400 Body weight 86.09 kg Richard Rodrigues MD Work Phone: [facility] 03-13-2022 09:15-0400 Diastolic blood pressure 96 mm[Hg] Richard Rodrigues MD Work Phone: [facility] 03-13-2022 09:15-0400 Heart rate 85 /min Richard Rodrigues MD Work Phone: [facility] 03-13-2022 09:15-0400 Respiratory rate 20 /min Richard Rodrigues MD Work Phone: [facility] 03-13-2022 09:15-0400 SaO2% (BldA) [Mass fraction] 96 % Richard Rodrigues MD Work Phone: [facility] 03-13-2022 09:15-0400 Systolic blood pressure 162 mm[Hg] Richard Rodrigues MD Work Phone: [facility] 08-26-2021 13:53-0400 Body temperature 97.59 [degF] Wil Nunes PA-C Work Phone: [facility] 08-26-2021 13:53-0400 Body weight 87.09 kg Wil Nunes PA-C Work Phone: [facility] 08-26-2021 13:53-0400 Diastolic blood pressure 76 mm[Hg] Wil Nunes PA-C Work Phone: [facility] 08-26-2021 13:53-0400 Heart rate 72 /min Wil Nunes PA-C Work Phone: [facility] 08-26-2021 13:53-0400 Respiratory rate 18 /min Wil Nunes PA-C Work Phone: [facility] 08-26-2021 13:53-0400 Systolic blood pressure 116 mm[Hg] Wil Nunes PA-C Work Phone: [facility] Encounters Encounter Date Encounter Type Care Provider Facility Start: 04-03-2023 Telephone encounter Alejandro Mendoza MD Work Phone: [facility] [place] Procedures Date Procedure Procedure Detail Performing Clinician Start: 02-16-2023 [employer] COVI D-19 VACCINE ( SEASON) AGE 12+ YR Dave Rasmussen MD Work Phone: Start: 02-16-2023 INFLUENZA VACCINE, P RSV FREE, AGE 65+ YR, HIGH DOSE, QUADRIVALENT (FLUZONE HIGH-DOSE) Dave Rasmussen MD Work Phone: Start: 03-17-2022 [employer] COVI D-19 BIVALENT BOOSTER VACCINE, AGE 12+ YR Alejandro Mendoza MD Work Phone: Start: 03-17-2022 INFLUENZA SEASONAL QUADRIVALENT HIGH DOSE AGE 65+ Alejandro Mendoza MD Work Phone: Plan of Treatment Date Care Activity Detail Author Start: 04-02-2026 [facility]: 12-04-2025 [facility] Start: 07-04-2025 DIABETES SCREEN DIABETES SCREEN [facility] Start: 03-23-2025 DIABETES SCREEN DIABETES SCREEN [facility] Start: 01-07-2025 DIABETES SCREEN DIABETES SCREEN [facility] Start: 08-22-2024 DIABETES SCREEN DIABETES SCREEN [facility] Start: 04-02-2024 RSV Vaccine (1 - 1-d ose 60+ series) RSV Vaccine (1 - 1-dose 60+ series) [facility] Immunizations Immunization Date Immunization Notes Care Provider Fa cility 02-16-2023 COVID-19 vaccine, ag e 12+ yr, 2022- season (PFIZER-BIONTECH) Immunization [place] Work Phone: [facility] Work Phone: 02-16-2023 influenza (HD-IIV4) vaccine, age 65+ yr, high dose, quadrivalent, PF (FLUZONE HIGH-DOSE) Immunization [place] Work Phone: [facility] Work Phone: 03-17-2022 COVID-19 booster vaccine, age 12+ yr, bivalent (PFIZER-BIONTECH) La Nurse Work Phone: [facility] Work Phone: 03-17-2022 influenza, high-dose , quadrivalent vaccine (FLUZONE HIGH DOSE QUADRIVALENT) [place] Nurse Work Phone: [facility] Work Phone: 03-17-2022 influenza virus vaccine, unspecified formulation Jackelin Paulino APRN.ELECTROLYSIS NEEDLE OPERATOR Work Phone: [facility] 02-25-2021 zoster vaccine recombinant Wil Nunes PA-C Work Phone: [facility] 02-19-2021 influenza, high-dose , quadrivalent vaccine (FLUZONE HIGH DOSE QUADRIVALENT) Wil uNnes PA-C Work Phone: [facility] 12-04-2020 zoster vaccine recombinant Wil Nunes PA-C Work Phone: [facility] 07-08-2020 COVID-19 vaccine, ag e 12+ yr (PFIZER-BIONTECH - PURPLE TOP) Wil Nunes PA-C Work Phone: [facility] Work Phone: 06-17-2020 COVID-19 vaccine, ag e 12+ yr (PFIZER-BIONTECH - PURPLE TOP) Wil Nunes PA-C Work Phone: [facility] Work Phone: 02-21-2020 influenza, high-dose , quadrivalent vaccine (FLUZONE HIGH DOSE QUADRIVALENT) Wil Nunes PA-C Work Phone: [facility] 03-28-2019 influenza, high dose seasonal, preservative-free Wil Nunes PA-C Work Phone: [facility] Work Phone: 02-16-2018 influenza, high dose seasonal, preservative-free Wil Nunes PA-C Work Phone: [facility] 03-24-2017 influenza, high dose seasonal, preservative-free Wil Nunes PA-C Work Phone: [facility] Work Phone: 03-03-2016 influenza, high dose seasonal, preservative-free Wil Nunes PA-C Work Phone: [facility] Work Phone: 07-02-2015 pneumococcal conjuga te vaccine, 13 valent Wil Nunes PA-C Work Phone: [facility] Work Phone: 04-12-2015 influenza, high dose seasonal, preservative-free Wil Nunes PA-C Work Phone: [facility] Work Phone: 03-18-2014 influenza, seasonal, injectable Wil Nunes PA-C Work Phone: [facility] 02-02-2014 pneumococcal polysaccharide vaccine, 23 valent Wil Des PA-C Work Phone: [facility] Work Phone: 02-22-2013 influenza virus vaccine, unspecified formulation Wil Nunes PA-C Work Phone: [facility] Work Phone: 03-30-2012 influenza virus vaccine, unspecified formulation Wil Nunes PA-C Work Phone: [facility] 03-11-2011 influenza virus vaccine, unspecified formulation Wil Nunes PA-C Work Phone: [facility] Work Phone: 03-01-2010 influenza virus vaccine, unspecified formulation Wil Nunes PA-C Work Phone: [facility] Work Phone: 05-03-2009 novel [id number], all formulations Wil Nunes PA-C Work Phone: [facility] Work Phone: 02-22-2009 influenza virus vaccine, unspecified formulation Wil Nunes PA-C Work Phone: [facility] Work Phone: 03-25-2008 influenza virus vaccine, unspecified formulation Wil Nunes PA-C Work Phone: [facility] Work Phone: 03-18-2007 influenza virus vaccine, unspecified formulation Wil Nunes PA-C Work Phone: [facility] Work Phone: 03-26-2006 influenza virus vaccine, unspecified formulation Wil Nunes PA-C Work Phone: [facility] Work Phone: 03-21-2003 diphtheria and tetan us toxoids, adsorbed for pediatric use Wil Nunes PA-C Work Phone: [facility] Work Phone: 04-09-2000 pneumococcal polysaccharide vaccine, 23 valent Wil Nunes PA-C Work Phone: [facility] Work Phone: Payers Date Payer Category Payer Private Health Insurance [facility] IN[facility]MNITY [id number] 2002-Present [phone] [address] [place] [address] Indemnity [id number] 2002 Private [facility] Insurance [facility] INDEMNITY [id number] 2002-Present [phone] [address] [place] [address] Indemnity [id number] 2002 Unknown [id number] 1990 Medicare MEDICARE MEDICAR E A AND B [id number] 1990-Present [phone] [address] [address] [place] [address] Medicare [id number] 1990 Medicare [id number] 1990 Medicare [id number] Social History Date Type Detail Facility Start: 05-19-2011 End: 04-02-2023 Tobacco smoking status NHIS Ex-smoker [facility] History of tobacco use Pipe Smoker [facility] Start: 05-19-2011 End: 03-13-2022 Tobacco use and exposure Smokeless tobacco non-user [facility] History of tobacco use Snuff User [facility] Start: 08-26-2021 End: 04-02-2023 Alcohol intake Current drinker of alcohol (finding) [facility] Start: 08-26-2021 End: 09-21-2022 Alcohol intake [facility] Start: 12-12-2011 End: 03-13-2022 Tobacco Comment former pipe, occasional snuff use [facility] Start: 1935 Sex Assigned At Male [facility] Start: 08-16-2021 End: 03-23-2022 Exposure to SARS-CoV-2 (event) Not sure [facility] History of tobacco use Current smoker [facility] Start: 09-21-2022 End: 04-02-2023 Tobacco use and exposure User of smokeless tobacco [facility] Work Phone: History of tobacco use Chews Tobacco [facility] Work Phone: Start: 09-14-2022 History SDOH Alcohol Frequency 2 [facility] Start: 09-14-2022 History SDOH Alcohol Std Drinks 1 [facility] Start: 09-14-2022 History SDOH Social Connections Phone 5 [facility] Start: 09-14-2022 History SDOH Social Connections Get Together 3 [facility] Start: 09-21-2022 Tobacco Comment former pipe, occasional snuff use. About 25-50 pouches in a week [facility] Start: 09-21-2022 Alcohol Comment beer, whisky [facility] Start: 09-14-2022 End: 09-21-2022 Social connection and isolation panel [facility] Do you belong to any clubs or organizations such as alevism groups, unions, fraternal or athletic groups, or school groups? No [facility] Are you now , , , , never or living with a partner? [facility] How often to you hav e a drink containing alcohol? Monthly or less [facility] How many standard dr inks containing alcohol do you have on a typical day? 1 or 2 [facility] How often do you hav e 6 or more drinks on 1 occasion? Never [facility] How hard is it for y ou to pay for the very basics like food, housing, medical care, and heating Somewhat hard [facility] Adult Depression Screening Assessment 0 [facility] Do you feel stress - tense, restless, nervous, or anxious, or unable to sleep at night because your mind is troubled all the time - these days [OSQ] Only a little [facility] (I/We) worried wheth er (my/our) food would run out before (I/we) got money to buy more. Never true [facility] Start: 01-02-2019 Gender identity Identifies as male gender (finding) [facility] Start: 01-02-2019 Sexual orientation Heterosexual (finding) [facility] Clinical Notes 08-26-2021 to 04-04-2023 Telephone Encounter - Kaitlyn Martin MA - 04/04/2023 8:40 AM ESTTelephone Encounter - Alejandro Mendoza MD - 04/03/2023 8:35 PM ESTPatient InstructionsAlejandro Mendoza MD - 04/02/2023 2:30 PM EST Note Date & Type Note Facility 04-04-2023 Miscellaneous Notes Patient notified and voiced understanding. Kaitlyn Martin MA Let patient know recent labs were ok except on his lipid panel his Trigs were too high indicating too much fat in diet. documented in this encounter [facility] 04-02-2023 Note HNO ID: [id number] Author: Alejandro Mendoza MD Service: ? 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 Stout 1988 Psoriatic arthritis (HCC) Dr Daniel PSORIATIC ARTHROPATHY 01/02/[address] Richards Viral warts, unspecified 06/19/2007 PAST SURGICAL HISTORY PAST SURGICAL HISTORY Procedure Laterality Date CATARACT EXTRACTION HX 11/2016 right CATARACT EXTRACTION HX 12/2016 Lt COLONOSCOPY 09/07/2004 repeat due 2014 MOHS HEAD/NECK STAGE 1 <=5 12/2012 left lower eyelid BCC MOHS and reconstruction PAST SURGICAL HISTORY OF 1987 right radical nephrectomy REPAIR UMBILICAL HERNIA hernia Feldene [Piroxicam] Medications reviewed: Yes FAMILY HISTORY FAMILY HISTORY Problem Relation Age of Onset other (Other [Other]) Mother in childbirth None Father Coronary Artery Disease Other none Colon Cancer Other none Prostate Cancer Other none Diabetes Daughter Cancer Brother lung Cancer Brother lung Cancer Sister ovarian SOCIAL HISTORY: SOCIAL HISTORY Social History Marital status: Spouse name: Yesika Cavazos Years of education: Number of children: 3 Occupational History 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 He watches his diet for sodium, low fat and low cholesterol some of the time. List of current specialists seen: Dr. Brown and Dr. Nelson, Opth[facility] End of Live Planning discussed including patients advanced directive wishes: Yes I am willing to follow Kirill's advanced directives. Depression screen Depression Screening PHQ-2 Score PHQ-9 Score CARLOS-2 Total Score 04/02/2023 0 - - Depression screening tool completed and reviewed. Based on score and interview, patient is not at risk for depression. Screening tool discussed with patient, and I recommended no further intervention at this time. Functional Ability/Safety Screen 1. Was the patient's timed Up and Go test unsteady or longer than 30 seconds? No 2. Does the patient need help with the phone, transportation, shopping,preparing meals, housework, laundry, medications or managing money? No 3. Does your home have rugs in the hallway, lack of grab bars in the bathroom, lack of handrails on the stairs or have poor lighting? No Hearing Evaluation: normal PHYSICAL EXAM BP 160/100 (BP Site: Right Arm, BP Position: Sitting, BP Cuff Size: Regular Adult) Pulse 70 Resp 22 Ht 172.1 cm (5' 7.75 ) Wt 86.2 kg (190 lb) BMI 29.10 kg/m? Alert and oriented X 3: YES Body mass index is 29.10 kg/m?. See below ASSESSMENT/PLAN: 87 year old male The following prevention plan was discussed during the office visit and provided to the patient: See below Alejandro Mendoza MD Chief Complaint Patient presents with: Medicare Wellness Exam HPI Kirill Hussein is a 87 year old male who presents here today for Chronic Medical Conditions. and Medicare Annual Visit. Patient with hx of HTN, hyperlipidemia, psoriatic arthritis, BPH and those as below. No new issues or concerns Past medical history, appointments, medications, allergies reviewed. Previous Medical History PAST MEDICAL HISTORY Diagnosis Date Advance directive discussed with patient 03/23/2022 Discussed 05/2021 BENIGN HYPERTENSION Benign prostatic hyperplasia without lower urinary tract symptoms 12/10/2008 Chronic pain of both knees 07/11/[address] Jadyn Van Dyslipidemia 07/23/2015 Essential hypertension, benign 06/20/2007 Ex-smoker 01/02/2017 US 12/2016: No AAA History of malignant neoplasm of kidney 11/05/2008 Radical nephrectomy (right), Dr. 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 Antunez (more content not included)... [facility] 04-02-2023 Instructions Alejandro Mendoza MD - 04/02/2023 3:18 PM EST Please consider getting the RSV vaccine from a local pharmacy. Consider getting the Tdap vaccine for tetanus update from the health dept. 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 Stout 1987 Psoriatic arthritis (HCC) Dr Daniel PSORIATIC ARTHROPATHY 01/02/[address] Richards Viral warts, unspecified 06/19/2007 PAST SURGICAL HISTORY PAST SURGICAL HISTORY Procedure Laterality Date CATARACT EXTRACTION HX 11/2016 right CATARACT EXTRACTION HX 12/2016 Lt COLONOSCOPY 09/07/2004 repeat due 2014 MOHS HEAD/NECK STAGE 1 <=5 12/2012 left lower eyelid BCC MOHS and reconstruction PAST SURGICAL HISTORY OF 1987 right radical nephrectomy REPAIR UMBILICAL HERNIA hernia Feldene [Piroxicam] Medications reviewed: Yes FAMILY HISTORY FAMILY HISTORY Problem Relation Age of Onset other (Other [Other]) Mother in childbirth None Father Coronary Artery Disease Other none Colon Cancer Other none Prostate Cancer Other none Diabetes Daughter Cancer Brother lung Cancer Brother lung Cancer Sister ovarian SOCIAL HISTORY: SOCIAL HISTORY Social History Marital status: Spouse name: Yesika Cavazos Years of education: Number of children: 3 Occupational History 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 He watches his diet for sodium, low fat and low cholesterol some of the time. List of current specialists seen: Dr. Brown and Dr. Nelson, Optho End of Live Planning discussed including patients advanced directive wishes: Yes I am willing to follow Kirill's advanced directives. Depression screen Depression Screening PHQ-2 Score PHQ-9 Score CARLOS-2 Total Score 04/02/2023 0 - - Depression screening tool completed and reviewed. Based on score and interview, patient is not at risk for depression. Screening tool discussed with patient, and I recommended no further intervention at this time. Functional Ability/Safety Screen 1. Was the patient's timed Up and Go test unsteady or longer than 30 seconds? No 2. Does the patient need help with the phone, transportation, shopping,preparing meals, housework, laundry, medications or managing money? No 3. Does your home have rugs in the hallway, lack of grab bars in the bathroom, lack of handrails on the stairs or have poor lighting? No Hearing Evaluation: normal PHYSICAL EXAM BP 160/100 (BP Site: Right Arm, BP Position: Sitting, BP Cuff Size: Regular Adult) Pulse 70 Resp 22 Ht 172.1 cm (5' 7.75 ) Wt 86.2 kg (190 lb) BMI 29.10 kg/m Alert and oriented X 3: YES Body mass index is 29.10 kg/m . See below ASSESSMENT/PLAN: 87 year old male The following prevention plan was discussed during the office visit and provided to the patient: See below Alejandro Mendoza MD Chief Complaint Patient presents with: Medicare Wellness Exam HPI Kirill Hussein is a 87 year old male who presents here today for Chronic Medical Conditions. and Medicare Annual Visit. Patient with hx of HTN, hyperlipidemia, psoriatic arthritis, BPH and those as below. No new issues or concerns Past medical history, appointments, medications, allergies reviewed. Previous Medical History PAST MEDICAL HISTORY Diagnosis Date Advance directive discussed with patient 03/23/2022 Discussed 05/2021 BENIGN HYPERTENSION Benign prostatic hyperplasia without lower urinary tract symptoms 12/10/2008 Chronic pain of both knees 07/11/[address] Jadyn Van Dyslipidemia 07/23/2015 Essential hypertension, benign 06/20/2007 Ex-smoker 01/02/2017 US 12/2016: No AAA History of malignant neoplasm of kidney 11/05/2008 Radical nephrectomy (right), Dr. 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 Nicholas Brown- Right upper chest Other chronic dermatitis due to solar radiation 06/19/2007 Other psoriasis 06/19/2007 Psoriatic arthritis (HCC) Dr Daniel Transient global amnesia 12/31/2014 ? 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 Salamanca CATARACT EXTRACTION HX 11/2016 right CATARACT EXTRACTION HX 12/2016 Lt COLONOSCOPY 09/07/2004 repeat due 2014 MOHS HEAD/NECK STAGE 1 <=5 12/2012 left lower eyelid BCC MOHS and reconstruction PAST SURGICAL HISTORY OF 1987 right radical nephrectomy REPAIR UMBILICAL HERNIA hernia TOTAL KNEE REPLACEMENT Right 03/17/2019 Dr. Salamanca Family History FAMILY HISTORY Problem Relation Age of Onset other (Other) Mother in childbirth None Father Coronary Artery Disease Other none Colon Cancer Other none Prostate Cancer Other none Diabetes Daughter Cancer Brother lung Cancer Brother lung Cancer Sister ovarian Patient Allergies ALLERGIES Allergen Reactions Feldene [Piroxicam] Unknown Current Medications Current Outpatient Medications on File Prior to Visit Medication Sig amLODIPine (NORVASC) 2.5 mg tablet Take 1 tablet by mouth once daily. atenolol (TENORMIN) 50 mg tablet Take 1 tablet by mouth once daily. calcium carb/vit D3/minerals (CALCIUM-VITAMIN D ORAL) Take by mouth. multivitamin tablet Take 1 tablet by mouth once daily. Miscellaneous Medical Supply (BLOOD PRESSURE CUFF) Large adult, Take blood pressure once a day or as directed per Physician, Dx: I10 omega-3 fatty acids 1,000 mg cap Take 2 capsules by mouth once daily. aspirin(ECOTRIN LOW STRENGTH 81 MG TAB) Take one(1) tablet daily. Etanercept (ENBREL) 50 mg/mL (0.98 mL) SUBCUTANEOUS Syrg ONCE PER WEEK benzonatate (TESSALON PERLE) 100 mg capsule Take 2 capsules by mouth three times daily as needed. No current facility-administered medications on file prior to visit. Social History Social History Tobacco Use Smoking status: Former Types: Pipe Smokeless tobacco: Current Types: Snuff, Chew Tobacco comments: former pipe, occasional snuff use. About 25-50 pouches in a week Vaping Use Vaping Use: Never used Substance Use Topics Alcohol use: Yes Alcohol/week: 7.5 standard drinks of alcohol Types: 5 Standard drinks or equivalent, 3 Cans of Beer (12oz) per week Comment: beer, whisky Drug use: No Review of Symptoms REVIEW OF SYSTEMS GENERAL: No weight loss, malaise or fevers HEENT: Negative for frequent or significant headaches, No changes in hearing or vision, no nose bleeds or other nasal problems NECK: Negative for lumps, goiter, pain and significant neck swelling RESPIRATORY: Negative for cough, hemoptysis, wheezing, COPD, dyspnea or shortness of breath CARDIOVASCULAR: Negative for chest pain, leg swelling, hypertension, CHF or palpitations GI: No nausea, vomiting, or diarrhea and No heartburn or reflux symptoms,. No blood : No history of dysuria, frequency or blood MUSCULOSKELETAL: Negative for new or changes in his typical joint pain or swelling, back pain or muscle pain SKIN: Negative for lesions, rash, and itching. Seeing DERM. PSYCH: Negative for sleep disturbance, mood disorder and recent psychosocial stressors HEMATOLOGY/LYMPHOLOGY: Negative for prolonged bleeding, bruising easily or swollen nodes ENDOCRINE: Negative for cold or heat intolerance, polyuria, polydipsia and goiter NEURO: No history of headaches, syncope, paralysis, seizures or tremors EXAM: BP 160/100 (BP Site: Right Arm, BP Position: Sitting, BP Cuff Size: Regular Adult) Pulse 70 Resp 22 Ht 172.1 cm (5' 7.75 ) Wt 86.2 kg (190 lb) BMI 29.10 kg/m BP 130/82 Pulse 70 Resp 22 Ht 172.1 cm (5' 7.75 ) Wt 86.2 kg (190 lb) BMI 29.10 kg/m Last 6 Encounter Wt Readings: Date: Wt: 04/02/2023 86.2 kg (190 lb) 11/02/2022 83.9 kg (185 lb) 10/23/2022 85.7 kg (189 lb) 09/21/2022 87.5 kg (193 lb) 03/23/2022 84.8 kg (187 lb) 03/13/2022 86.1 kg (189 lb 12.8 oz) General Appearance: Well appearing, alert, in no acute distress, well-hydrated, well nourished.. Skin: Skin color, texture, turgor normal, no suspicious rashes or lesions. Head: Normocephalic, no masses, lesions, tenderness or abnormalities. Eyes: Anicteric sclera. Pupils are equally round and reactive to light. Extraocular movements are intact. . Ears: External ears, TM's normal, canals clear. Nose/Sinuses: Nares normal, septum midline, mucosa normal, no drainage or sinus tenderness. Oropharynx: Lips, mucosa, and tongue normal, teeth and gums normal, oropharynx normal. Neck: Supple, no adenopathy; thyroid symmetric, normal size, no bruits. Lungs: Lungs clear to auscultation. No wheezing, rhonchi, rales.. Heart: RRR without murmur, gallop, or rubs. No ectopy. Abdomen: Normal abdominal exam, Abdomen soft, non-tender. Bowel sounds normal. No masses, organomegaly. Extremities: No deformities, edema, skin discoloration, Good capillary refill. . Musculoskeletal: Muscular strength intact, No joint swelling, deformity, or tenderness. Peripheral Pulses: Normal. Neurologic: Gait normal. Reflexes normal and symmetric. Sensation to light touch and crainal nerves 2-12 intact.. Genitalia: declined. Health Maintenance List RSV Vaccine(1 - 1-dose 60+ series) Never done DTaP,Tdap,Td Vaccine(2 - Tdap) due on 03/21/2013 Advance Directive Discussion due on 05/21/2022 Depression Assessment due on 05/21/2022 Covid-19 Vaccine(2022- season) due on 04/13/2023 Diabetes Screening due on 12/04/2025 Influenza Vaccine Completed Shingrix Vaccine Completed Pneumococcal Vaccine: 65+ Completed HPV Vaccine Aged Out Data reviewed A/P ASSESSMENT/PLAN: 1. Medicare annual wellness visit, subsequent - ICD9: V70.0, ICD10: Z00.00 (primary diagnosis) - Counseled on healthy diet and regular exercise - Discussed need for and benefit of weight loss. BMI 29.10 kg/(m^2) - Follow up for annual exam in one year - discussed RSV and Tdap updates. 2. Essential hypertension, benign - ICD9: 401.1, ICD10: I10 - Controlled - Continue current medications - Recommend home blood pressure monitoring, to bring results to next visit - Encouraged sodium restriction, DASH or Mediterranean diet - Recommend regular aerobic exercise Check - COMP METABOLIC PANEL - URINALYSIS, WITH MICROSCOPIC - LIPID PANEL, NONFASTING 3. Dyslipidemia - ICD9: 272.4, ICD10: E78.5 - await labs - Counseled on healthy diet and regular exercise Check - COMP METABOLIC PANEL - URINALYSIS, WITH MICROSCOPIC - LIPID PANEL, NONFASTING 4. Benign prostatic hyperplasia without lower urinary tract symptoms - ICD9: 600.00, ICD10: N40.0 - clinically stable 5. 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 Melanoma in situ, unspecified site (HCC) - ICD9: 172.9, ICD10: D03.9 - as per #5 7. Advance directive discussed with patient - ICD9: V65.49, ICD10: Z71.89 - up to date, F/u 6 months routine I spent a total of 40 minutes on the date of the service which included preparing to see the patient, [id number] patient care, completing clinical documentation, performing a medically appropriate examination, counseling and educating the patient/family/caregiver and ordering medications, tests, or procedures. Alejandro Mendoza MD documented in this encounter [facility] 02-06-2023 Miscellaneous Notes The following approved medication requests have been transmitted electronically. Requested Prescriptions Signed Prescriptions Disp Refills atenolol (TENORMIN) 50 mg tablet 90 tablet 1 Sig: Take 1 tablet by mouth once daily. Authorizing Provider: ALEJANDRO MENDOZA MD Patient has been identified by name and date of : Yes Patient phones for refill(s): Requested Prescriptions Pending Prescriptions Disp Refills atenolol (TENORMIN) 50 mg tablet 90 tablet 1 Sig: Take 1 tablet by mouth once daily. Date of last office visit in primary care: 11/02/2022 Next appointment scheduled 04/02/2023 Please advise. Thank you. Ann Richards LPN documented in this encounter [facility] 11-06-2022 Note HNO ID: [id number] Author: Kaitlyn Martin MA Service: ? Author Type: Excelsior Machine Feeder Type: Progress Notes Filed: 11/06/2022 1:29 PM Note Text: Scan on 11/06/2022 10:11 AM by External Provider, DOMINGO: X-ray Kaitlyn Martin MA [facility] 11-06-2022 History of Presen t illness Narrative Scan on 11/06/2022 10:11 AM by External Provider, DOMINGO: X-ray Kaitlyn Martin MA documented in this encounter [facility] 11-03-2022 Miscellaneous Notes Call placed to patient and spouse. Message below reviewed. Patient/spouse verbalizes understanding. Arabella Josue RN Please let patient know his chest xray shows developing pneumonia. His covid, flu and RSV were negative. I have sent in two antibiotics for patient. Spouse (Yesika) calls to request CXR results. Yesika reports that patient continues to have cough, wheezing, and SOB. She reports that he is taking small short breaths. No ability to take pulse ox reading. Instructed Yesika that if patient appeared to be struggling to catch his breath would recommend ER eval. Yesika reports it is not like that but she knows if he gets bad to take him in. Please review and advise, Arabella Josue RN documented in this encounter [facility] 11-02-2022 Note HNO ID: [id number] Author: RT Tenisha(R) Service: ? Author Type: Light Bulb Assembler Type: Progress Notes Filed: 11/02/2022 5:21 PM Note Text: Radiology Service Progress Note PATIENT NAME: Kirill Hussein DATE OF SERVICE: November 02, 2022 TIME: 5:11 PM PATIENT IDENTITY VERIFICATION COMPLETED USING TWO (2) IDENTIFIERS: Name and Date of confirmed by patient verbally. FALL SCREENING: Has the patient had 2 falls in the last year or 1 fall with injury or currently using an Ambulatory Assistive Device (Walker, Cane, Wheelchair, Crutches, etc.)? No PATIENT GENDER DATA: Male PATIENT RELEVANT IMPLANT DATA REVIEWED: Yes RADIOLOGY DEPARTMENT: General X-ray: Exam(s) Completed: Chest X-Ray PERIPHERAL IV DATA: Not applicable SIGNED BY: RT Tenisha(R) November 02, 2022 5:11 PM [facility] 11-02-2022 Note HNO ID: [id number] Author: Jackelin Paulino APRN.ELECTROLYSIS NEEDLE OPERATOR Service: ? Author Type: Nurse Practitioner Type: Progress Notes Filed: 11/02/2022 5:01 PM Note Text: Chief Complaint Patient presents with: Hypertension: Follow up URI: Chest congestion for a couple days. HPI Kirill Hussein is a 87 year old male who presents here today for Above Complaints.. Patient presents for cough x 2 days. Patient is noted to have fever. Patient reports he feels fatigued as well. Patient also here for BP follow up. Patient denies headache, chest pain, dizziness. Past medical history, appointments, medications, allergies reviewed. Previous Medical History PAST MEDICAL HISTORY Diagnosis Date Advance directive discussed with patient 03/23/2022 Discussed 05/2021 BENIGN HYPERTENSION Benign prostatic hyperplasia without lower urinary tract symptoms 12/10/2008 Chronic pain of both knees 07/11/[address] Jadyn Van Dyslipidemia 07/23/2015 Essential hypertension, benign 06/20/2007 Ex-smoker 01/02/2017 US 12/2016: No AAA History of malignant neoplasm of kidney 11/05/2008 Radical nephrectomy (right), Dr. 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 Nicholas Brown- Right upper chest Other chronic dermatitis due to solar radiation 06/19/2007 Other psoriasis 06/19/2007 Psoriatic arthritis (HCC) Dr Daniel Transient global amnesia 12/31/2014 ? Around 2010 Vasomotor rhinitis 07/05/2016 Viral warts, unspecified 06/19/2007 Previous Surgical History PAST SURGICAL HISTORY Procedure Laterality Date ARTHRP KNE CONDYLEANDPLATU MEDIALANDLAT COMPARTMENTS Left 07/22/2018 Dr. Salamanca CATARACT EXTRACTION HX 11/2016 right CATARACT EXTRACTION HX 12/2016 Lt COLONOSCOPY 09/07/2004 repeat due 2014 MOHS HEAD/NECK STAGE 1 <=5 12/2012 left lower eyelid BCC MOHS and reconstruction PAST SURGICAL HISTORY OF 1987 right radical nephrectomy REPAIR UMBILICAL HERNIA hernia TOTAL KNEE REPLACEMENT Right 03/17/2019 Dr. Salamanca Family History FAMILY HISTORY Problem Relation Age of Onset other (Other) Mother in childbirth None Father Coronary Artery Disease Other none Colon Cancer Other none Prostate Cancer Other none Diabetes Daughter Cancer Brother lung Cancer Brother lung Cancer Sister ovarian Patient Allergies ALLERGIES Allergen Reactions Feldene [Piroxicam] Unknown Current Medications Current Outpatient Medications on File Prior to Visit Medication Sig amLODIPine (NORVASC) 2.5 mg tablet Take 1 tablet by mouth once daily. atenolol (TENORMIN) 50 mg tablet Take 1 tablet by mouth once daily. calcium carb/vit D3/minerals (CALCIUM-VITAMIN D ORAL) Take by mouth. multivitamin tablet Take 1 tablet by mouth once daily. omega-3 fatty acids 1,000 mg cap Take 2 capsules by mouth once daily. aspirin(ECOTRIN LOW STRENGTH 81 MG TAB) Take one(1) tablet daily. Etanercept (ENBREL) 50 mg/mL (0.98 mL) SUBCUTANEOUS Syrg ONCE PER WEEK Miscellaneous Medical Supply (BLOOD PRESSURE CUFF) Large adult, Take blood pressure once a day or as directed per Physician, Dx: I10 benzonatate (TESSALON PERLE) 100 mg capsule Take 2 capsules by mouth three times daily as needed. No current facility-administered medications on file prior to visit. Social History Social History Tobacco Use Smoking status: Former Types: Pipe Smokeless tobacco: Current Types: Snuff, Chew Tobacco comments: former pipe, occasional snuff use. About 25-50 pouches in a week Vaping Use Vaping Use: Never used Substance Use Topics Alcohol use: Yes Alcohol/week: 7.5 standard drinks Types: 5 Standard drinks or equivalent, 3 Cans of Beer (12oz) per week Comment: beer, whisky Drug use: No Review of Symptoms REVIEW OF SYSTEMS SEE HPI EXAM: BP 126/68 Pulse 88 Temp (!) 38.9 ?C (102.1 ?F) (Right Tympanic) Resp 20 Wt 83.9 kg (185 lb) SpO2 95% BMI 28.34 kg/m? General Appearance: Well appearing, alert, in no acute distress, well-hydrated, well nourished.. Lungs: Positive findings: wheezing Shortness of breath: Upon exertion Cough. Heart: RRR without murmur, gallop, or rubs. No ectopy. Health Maintenance List ADVANCE DIRECTIVE DISCUSSION due on 05/21/2022 DEPRESSION ASSESSMENT due on 05/21/2022 DTAP,TDAP,TD(2 - Tdap) due on 03/23/2023 DIABETES SCREEN due on 07/04/2025 INFLUENZA Completed SHINGRIX VACCINE Completed COVID-19 VACCINE Completed PNEUMOCOCCAL: 65+ Completed ASSESSMENT/PLAN: 1. Acute cough - ICD9: 786.2, ICD10: R05.1 - XR CHEST 2V FRONTAL/LAT - COVID, FLU A/B + RSV, ROUTINE - 2019 CORONAVIRUS - ROUTINE FLU A/B + RSV Je (more content not included)... [facility] 10-23-2022 Note HNO ID: [id number] Author: Wil Nunes PA-C Service: ? Author Type: Physician Drywall Finisher Foreman Type: Progress Notes Filed: 10/23/2022 11:54 AM Note Text: Chief Complaint Patient presents with: Recheck HPI Kirill Hussein is a 87 year old male who presents here today for BP recheck. Patient had elevated BP during routine visit last month. No changes were made. Patient states he only sometimes checks BP at home. Last 3 Encounter BP Readings: Date: BP: 10/23/2022 118/66[bp azar average[ 09/21/2022 160/96[bp azar average[ 03/23/2022 138/80 Past medical history, appointments, medications, allergies reviewed. Previous Medical History PAST MEDICAL HISTORY Diagnosis Date Advance directive discussed with patient 03/23/2022 Discussed 05/2021 BENIGN HYPERTENSION Benign prostatic hyperplasia without lower urinary tract symptoms 12/10/2008 Chronic pain of both knees 07/11/[address] Jadyn Van Dyslipidemia 07/23/2015 Essential hypertension, benign 06/20/2007 Ex-smoker 01/02/2017 US 12/2016: No AAA History of malignant neoplasm of kidney 11/05/2008 Radical nephrectomy (right), Dr. 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 Nicholas Brown- Right upper chest Other chronic dermatitis due to solar radiation 06/19/2007 Other psoriasis 06/19/2007 Psoriatic arthritis (HCC) Dr Daniel Transient global amnesia 12/31/2014 ? Around 2010 Vasomotor rhinitis 07/05/2016 Viral warts, unspecified 06/19/2007 Previous Surgical History PAST SURGICAL HISTORY Procedure Laterality Date ARTHRP KNE CONDYLEANDPLATU MEDIALANDLAT COMPARTMENTS Left 07/22/2018 Dr. Salamanca CATARACT EXTRACTION HX 11/2016 right CATARACT EXTRACTION HX 12/2016 Lt COLONOSCOPY 09/07/2004 repeat due 2014 MOHS HEAD/NECK STAGE 1 <=5 12/2012 left lower eyelid BCC MOHS and reconstruction PAST SURGICAL HISTORY OF 1987 right radical nephrectomy REPAIR UMBILICAL HERNIA hernia TOTAL KNEE REPLACEMENT Right 03/17/2019 Dr. Salamanca Family History FAMILY HISTORY Problem Relation Age of Onset other (Other) Mother in childbirth None Father Coronary Artery Disease Other none Colon Cancer Other none Prostate Cancer Other none Diabetes Daughter Cancer Brother lung Cancer Brother lung Cancer Sister ovarian Patient Allergies ALLERGIES Allergen Reactions Feldene [Piroxicam] Unknown Current Medications Current Outpatient Medications on File Prior to Visit Medication Sig amLODIPine (NORVASC) 2.5 mg tablet Take 1 tablet by mouth once daily. atenolol (TENORMIN) 50 mg tablet Take 1 tablet by mouth once daily. calcium carb/vit D3/minerals (CALCIUM-VITAMIN D ORAL) Take by mouth. multivitamin tablet Take 1 tablet by mouth once daily. Miscellaneous Medical Supply (BLOOD PRESSURE CUFF) Large adult, Take blood pressure once a day or as directed per Physician, Dx: I10 benzonatate (TESSALON PERLE) 100 mg capsule Take 2 capsules by mouth three times daily as needed. omega-3 fatty acids 1,000 mg cap Take 2 capsules by mouth once daily. aspirin(ECOTRIN LOW STRENGTH 81 MG TAB) Take one(1) tablet daily. Etanercept (ENBREL) 50 mg/mL (0.98 mL) SUBCUTANEOUS Syrg ONCE PER WEEK No current facility-administered medications on file prior to visit. Social History Social History Tobacco Use Smoking status: Former Types: Pipe Smokeless tobacco: Current Types: Snuff, Chew Tobacco comments: former pipe, occasional snuff use. About 25-50 pouches in a week Vaping Use Vaping Use: Never used Substance Use Topics Alcohol use: Yes Alcohol/week: 7.5 standard drinks Types: 5 Standard drinks or equivalent, 3 Cans of Beer (12oz) per week Comment: beer, whisky Drug use: No Review of Symptoms REVIEW OF SYSTEMS GENERAL: No weight loss, malaise or fevers RESPIRATORY: Negative for cough, hemoptysis, wheezing, COPD, dyspnea or shortness of breath CARDIOVASCULAR: Negative for chest pain, leg swelling, CHF or palpitations EXAM: BP 118/66 (BP Site: Left Arm, BP Position: Sitting, BP Cuff Size: Large Adult) Pulse 60 Temp 36.4 ?C (97.6 ?F) Resp 16 Wt 85.7 kg (189 lb) BMI 28.95 kg/m? General Appearance: Well appearing, alert, in no acute distress, well-hydrated, well nourished.. Health Maintenance List ADVANCE DIRECTIVE DISCUSSION due on 05/21/2022 DEPRESSION ASSESSMENT due on 05/21/2022 DTAP,TDAP,TD(2 - Tdap) due on 03/23/2023 DIABETES SCREEN due on 07/04/2025 INFLUENZA Completed SHINGRIX VACCINE Completed COVID-19 VACCINE Completed PNEUMOCOCCAL: 65+ Completed Data reviewed ASSESSMENT/PLAN: 1. Hypertension, essential - ICD9: 4 (more content not included)... [facility] 10-23-2022 History of Presen t illness Narrative Chief Complaint Patient presents with: Recheck HPI Kirill Hussein is a 87 year old male who presents here today for BP recheck. Patient had elevated BP during routine visit last month. No changes were made. Patient states he only sometimes checks BP at home. Last 3 Encounter BP Readings: Date: BP: 10/23/2022 118/66[bp azar average[ 09/21/2022 160/96[bp azar average[ 03/23/2022 138/80 Past medical history, appointments, medications, allergies reviewed. Previous Medical History PAST MEDICAL HISTORY Diagnosis Date Advance directive discussed with patient 03/23/2022 Discussed 05/2021 BENIGN HYPERTENSION Benign prostatic hyperplasia without lower urinary tract symptoms 12/10/2008 Chronic pain of both knees 07/11/[address] Jadyn Van Dyslipidemia 07/23/2015 Essential hypertension, benign 06/20/2007 Ex-smoker 01/02/2017 [place] 12/2016: No AAA History of malignant neoplasm of kidney 11/05/2008 Radical nephrectomy (right), Dr. 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 Nicholas Brown- Right upper chest Other chronic dermatitis due to solar radiation 06/19/2007 Other psoriasis 06/19/2007 Psoriatic arthritis (HCC) Dr Daniel Transient global amnesia 12/31/2014 ? 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 Salamanca CATARACT EXTRACTION HX 11/2016 right CATARACT EXTRACTION HX 12/2016 Lt COLONOSCOPY 09/07/2004 repeat due 2014 MOHS HEAD/NECK STAGE 1 <=5 12/2012 left lower eyelid BCC MOHS and reconstruction PAST SURGICAL HISTORY OF 1987 right radical nephrectomy REPAIR UMBILICAL HERNIA hernia TOTAL KNEE REPLACEMENT Right 03/17/2019 Dr. Salamanca Family History FAMILY HISTORY Problem Relation Age of Onset other (Other) Mother in childbirth None Father Coronary Artery Disease Other none Colon Cancer Other none Prostate Cancer Other none Diabetes Daughter Cancer Brother lung Cancer Brother lung Cancer Sister ovarian Patient Allergies ALLERGIES Allergen Reactions Feldene [Piroxicam] Unknown Current Medications Current Outpatient Medications on File Prior to Visit Medication Sig amLODIPine (NORVASC) 2.5 mg tablet Take 1 tablet by mouth once daily. atenolol (TENORMIN) 50 mg tablet Take 1 tablet by mouth once daily. calcium carb/vit D3/minerals (CALCIUM-VITAMIN D ORAL) Take by mouth. multivitamin tablet Take 1 tablet by mouth once daily. Miscellaneous Medical Supply (BLOOD PRESSURE CUFF) Large adult, Take blood pressure once a day or as directed per Physician, Dx: I10 benzonatate (TESSALON PERLE) 100 mg capsule Take 2 capsules by mouth three times daily as needed. omega-3 fatty acids 1,000 mg cap Take 2 capsules by mouth once daily. aspirin(ECOTRIN LOW STRENGTH 81 MG TAB) Take one(1) tablet daily. Etanercept (ENBREL) 50 mg/mL (0.98 mL) SUBCUTANEOUS Syrg ONCE PER WEEK No current facility-administered medications on file prior to visit. Social History Social History Tobacco Use Smoking status: Former Types: Pipe Smokeless tobacco: Current Types: Snuff, Chew Tobacco comments: former pipe, occasional snuff use. About 25-50 pouches in a week Vaping Use Vaping Use: Never used Substance Use Topics Alcohol use: Yes Alcohol/week: 7.5 standard drinks Types: 5 Standard drinks or equivalent, 3 Cans of Beer (12oz) per week Comment: beer, whisky Drug use: No Review of Symptoms REVIEW OF SYSTEMS GENERAL: No weight loss, malaise or fevers RESPIRATORY: Negative for cough, hemoptysis, wheezing, COPD, dyspnea or shortness of breath CARDIOVASCULAR: Negative for chest pain, leg swelling, CHF or palpitations EXAM: BP 118/66 (BP Site: Left Arm, BP Position: Sitting, BP Cuff Size: Large Adult) Pulse 60 Temp 36.4 C (97.6 F) Resp 16 Wt 85.7 kg (189 lb) BMI 28.95 kg/m General Appearance: Well appearing, alert, in no acute distress, well-hydrated, well nourished.. Health Maintenance List ADVANCE DIRECTIVE DISCUSSION due on 05/21/2022 DEPRESSION ASSESSMENT due on 05/21/2022 DTAP,TDAP,TD(2 - Tdap) due on 03/23/2023 DIABETES SCREEN due on 07/04/2025 INFLUENZA Completed SHINGRIX VACCINE Completed COVID-19 VACCINE Completed PNEUMOCOCCAL: 65+ Completed Data reviewed ASSESSMENT/PLAN: 1. Hypertension, essential - ICD9: 401.9, ICD10: I10 - Controlled - Continue current medications - Recommend home blood pressure monitoring, to bring results to next visit - Encouraged sodium restriction, DASH or Mediterranean diet - Recommend regular aerobic exercise Wil Nunes PA-C documented in this encounter [facility] 09-22-2022 Miscellaneous Notes Pt's notified of results and instructions, verbalizes understanding. Massimo Gilbert LPN Let patient know that overall labs are stable. His cholesterol is slightly worse which could be related to his diet. I won't make any medication changes and we will monitor. Watch diet. documented in this encounter [facility] 09-21-2022 Note HNO ID: [id number] Author: Wil Nunes PA-C Service: ? 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 Patient with hx of HTN, hyperlipidemia, psoriatic arthritis, BPH and those as below. Patient denies concerns Past medical history, appointments, medications, allergies reviewed. Previous Medical History PAST MEDICAL HISTORY Diagnosis Date Advance directive discussed with patient 03/23/2022 Discussed 05/2021 BENIGN HYPERTENSION Benign prostatic hyperplasia without lower urinary tract symptoms 12/10/2008 Chronic pain of both knees 07/11/[address] Jadyn Van Dyslipidemia 07/23/2015 Essential hypertension, benign 06/20/2007 Ex-smoker 01/02/2017 [place] 12/2016: No AAA History of malignant neoplasm of kidney 11/05/2008 Radical nephrectomy (right), Dr. 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 Nicholas Brown- Right upper chest Other chronic dermatitis due to solar radiation 06/19/2007 Other psoriasis 06/19/2007 Psoriatic arthritis (HCC) Dr Daniel Transient global amnesia 12/31/2014 ? Around 2010 Vasomotor rhinitis 07/05/2016 Viral warts, unspecified 06/19/2007 Previous Surgical History PAST SURGICAL HISTORY Procedure Laterality Date ARTHRP KNE CONDYLEANDPLATU MEDIALANDLAT COMPARTMENTS Left 07/22/2018 Dr. Salamanca CATARACT EXTRACTION HX 11/2016 right CATARACT EXTRACTION HX 12/2016 Lt COLONOSCOPY 09/07/2004 repeat due 2014 MOHS HEAD/NECK STAGE 1 <=5 12/2012 left lower eyelid BCC MOHS and reconstruction PAST SURGICAL HISTORY OF 1987 right radical nephrectomy REPAIR UMBILICAL HERNIA hernia TOTAL KNEE REPLACEMENT Right 03/17/2019 Dr. Salamanca Family History FAMILY HISTORY Problem Relation Age of Onset other (Other) Mother in childbirth None Father Coronary Artery Disease Other none Colon Cancer Other none Prostate Cancer Other none Diabetes Daughter Cancer Brother lung Cancer Brother lung Cancer Sister ovarian Patient Allergies ALLERGIES Allergen Reactions Feldene [Piroxicam] Unknown Current Medications Current Outpatient Medications on File Prior to Visit Medication Sig amLODIPine (NORVASC) 2.5 mg tablet Take 1 tablet by mouth once daily. atenolol (TENORMIN) 50 mg tablet Take 1 tablet by mouth once daily. calcium carb/vit D3/minerals (CALCIUM-VITAMIN D ORAL) Take by mouth. multivitamin tablet Take 1 tablet by mouth once daily. Miscellaneous Medical Supply (BLOOD PRESSURE CUFF) Large adult, Take blood pressure once a day or as directed per Physician, Dx: I10 omega-3 fatty acids 1,000 mg cap Take 2 capsules by mouth once daily. aspirin(ECOTRIN LOW STRENGTH 81 MG TAB) Take one(1) tablet daily. Etanercept (ENBREL) 50 mg/mL (0.98 mL) SUBCUTANEOUS Syrg ONCE PER WEEK benzonatate (TESSALON PERLE) 100 mg capsule Take 2 capsules by mouth three times daily as needed. (Patient not taking: Reported on 03/23/2022) No current facility-administered medications on file prior to visit. Social History Social History Tobacco Use Smoking status: Former Types: Pipe Smokeless tobacco: Never Tobacco comments: former pipe, occasional snuff use Substance Use Topics Alcohol use: Yes Alcohol/week: 7.5 standard drinks Types: 3 Cans of Beer (12oz) per week Comment: beer Drug use: No Review of Symptoms REVIEW OF SYSTEMS GENERAL: No weight loss, malaise or fevers NECK: Negative for lumps, goiter, pain and significant neck swelling RESPIRATORY: Negative for cough, hemoptysis, wheezing, COPD, dyspnea or shortness of breath CARDIOVASCULAR: Negative for chest pain, leg swelling, hypertension, CHF or palpitations NEURO: No history of headaches, syncope, paralysis, seizures or tremors EXAM: BP 142/88 (BP Site: Left Arm, BP Position: Sitting, BP Cuff Size: Large Adult) Pulse 62 Temp 36.6 ?C (97.8 ?F) Resp 18 Wt 87.5 kg (193 lb) BMI 29.56 kg/m? BP 160/96 (BP Site: Left Arm, BP Position: Sitting, BP Cuff Size: Large Adult) Pulse 61 Temp 36.6 ?C (97.8 ?F) Resp 18 Wt 87.5 kg (193 lb) BMI 29.56 kg/m? General Appearance: Well appearing, alert, in no acute distress, well-hydrated, well nourished.. Neck: Supple, no adenopathy; thyroid symmetric, normal size, no bruits. Lungs: Lungs clear to auscultation. No wheezing, rhonchi, rales.. Heart: RRR without murmur, gallop, or rubs. No ectopy. Extremities: No deformities, edema, skin discoloration, clubbing or cy (more content not included)... [facility] 09-21-2022 History of Presen t illness Narrative Chief Complaint Patient presents with: 6 Month Exam HPI Kirill Hussein is a 87 year old male who presents here today for Chronic Medical Conditions.. Patient with hx of HTN, hyperlipidemia, psoriatic arthritis, BPH and those as below. Patient denies concerns Past medical history, appointments, medications, allergies reviewed. Previous Medical History PAST MEDICAL HISTORY Diagnosis Date Advance directive discussed with patient 03/23/2022 Discussed 05/2021 BENIGN HYPERTENSION Benign prostatic hyperplasia without lower urinary tract symptoms 12/10/2008 Chronic pain of both knees 07/11/[address] Jadyn Van Dyslipidemia 07/23/2015 Essential hypertension, benign 06/20/2007 Ex-smoker 01/02/2017 [place] 12/2016: No AAA History of malignant neoplasm of kidney 11/05/2008 Radical nephrectomy (right), Dr. 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 Nicholas Brown- Right upper chest Other chronic dermatitis due to solar radiation 06/19/2007 Other psoriasis 06/19/2007 Psoriatic arthritis (HCC) Dr Daniel Transient global amnesia 12/31/2014 ? 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 Salamanca CATARACT EXTRACTION HX 11/2016 right CATARACT EXTRACTION HX 12/2016 Lt COLONOSCOPY 09/07/2004 repeat due 2014 MOHS HEAD/NECK STAGE 1 <=5 12/2012 left lower eyelid BCC MOHS and reconstruction PAST SURGICAL HISTORY OF 1987 right radical nephrectomy REPAIR UMBILICAL HERNIA hernia TOTAL KNEE REPLACEMENT Right 03/17/2019 Dr. Salamanca Family History FAMILY HISTORY Problem Relation Age of Onset other (Other) Mother in childbirth None Father Coronary Artery Disease Other none Colon Cancer Other none Prostate Cancer Other none Diabetes Daughter Cancer Brother lung Cancer Brother lung Cancer Sister ovarian Patient Allergies ALLERGIES Allergen Reactions Feldene [Piroxicam] Unknown Current Medications Current Outpatient Medications on File Prior to Visit Medication Sig amLODIPine (NORVASC) 2.5 mg tablet Take 1 tablet by mouth once daily. atenolol (TENORMIN) 50 mg tablet Take 1 tablet by mouth once daily. calcium carb/vit D3/minerals (CALCIUM-VITAMIN D ORAL) Take by mouth. multivitamin tablet Take 1 tablet by mouth once daily. Miscellaneous Medical Supply (BLOOD PRESSURE CUFF) Large adult, Take blood pressure once a day or as directed per Physician, Dx: I10 omega-3 fatty acids 1,000 mg cap Take 2 capsules by mouth once daily. aspirin(ECOTRIN LOW STRENGTH 81 MG TAB) Take one(1) tablet daily. Etanercept (ENBREL) 50 mg/mL (0.98 mL) SUBCUTANEOUS Syrg ONCE PER WEEK benzonatate (TESSALON PERLE) 100 mg capsule Take 2 capsules by mouth three times daily as needed. (Patient not taking: Reported on 03/23/2022) No current facility-administered medications on file prior to visit. Social History Social History Tobacco Use Smoking status: Former Types: Pipe Smokeless tobacco: Never Tobacco comments: former pipe, occasional snuff use Substance Use Topics Alcohol use: Yes Alcohol/week: 7.5 standard drinks Types: 3 Cans of Beer (12oz) per week Comment: beer Drug use: No Review of Symptoms REVIEW OF SYSTEMS GENERAL: No weight loss, malaise or fevers NECK: Negative for lumps, goiter, pain and significant neck swelling RESPIRATORY: Negative for cough, hemoptysis, wheezing, COPD, dyspnea or shortness of breath CARDIOVASCULAR: Negative for chest pain, leg swelling, hypertension, CHF or palpitations NEURO: No history of headaches, syncope, paralysis, seizures or tremors EXAM: BP 142/88 (BP Site: Left Arm, BP Position: Sitting, BP Cuff Size: Large Adult) Pulse 62 Temp 36.6 C (97.8 F) Resp 18 Wt 87.5 kg (193 lb) BMI 29.56 kg/m BP 160/96 (BP Site: Left Arm, BP Position: Sitting, BP Cuff Size: Large Adult) Pulse 61 Temp 36.6 C (97.8 F) Resp 18 Wt 87.5 kg (193 lb) BMI 29.56 kg/m General Appearance: Well appearing, alert, in no acute distress, well-hydrated, well nourished.. Neck: Supple, no adenopathy; thyroid symmetric, normal size, no bruits. Lungs: Lungs clear to auscultation. No wheezing, rhonchi, rales.. Heart: RRR without murmur, gallop, or rubs. No ectopy. Extremities: No deformities, edema, skin discoloration, clubbing or cyanosis. Good capillary refill. . Peripheral Pulses: Normal. Health Maintenance List ADVANCE DIRECTIVE DISCUSSION due on 05/21/2022 DEPRESSION ASSESSMENT due on 05/21/2022 DTAP,TDAP,TD(2 - Tdap) due on 03/23/2023 DIABETES SCREEN due on 07/04/2025 INFLUENZA Completed SHINGRIX VACCINE Completed COVID-19 VACCINE Completed PNEUMOCOCCAL: 65+ Completed Data reviewed N/a ASSESSMENT/PLAN: 1. Essential hypertension, benign - ICD9: 401.1, ICD10: I10 (primary diagnosis) - suboptimal control - Continue current medication(s) - Recommended regular aerobic exercise. - Recommend home blood pressure monitoring, to bring results in on next visit - Follow up in 1 month for BP recheck. - Goal of BP <130/80 2. Dyslipidemia - ICD9: 272.4, ICD10: E78.5 - to be determined upon return of lab results - Encouraged following a low carbohydrate, healthy oil intake diet. - Continue current therapy. - LIPID PANEL, NONFASTING 3. Renal insufficiency - ICD9: 593.9, ICD10: N28.9 stable 4. Macular degeneration of both eyes, unspecified type - ICD9: 362.50, ICD10: H35.30 Cont with specialist 5. Psoriatic arthritis (HCC) - ICD9: 696.0, ICD10: L40.50 stable 6. Proteinuria, unspecified type - ICD9: 791.0, ICD10: R80.9 No new issues 7. 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 Melanoma in situ, unspecified site (HCC) - ICD9: 172.9, ICD10: D03.9 As above. Follow up in 6 months for wellness. In 1 month for recheck on BP. Wil Nunes PA-C documented in this encounter [facility] 07-31-2022 Miscellaneous Notes Last office visit: 03/23/22 F/u scheduled: 09/21/22 Zahira Ochoa Ma documented in this encounter [facility] 03-24-2022 Miscellaneous Notes Pt notified of same. Massimo Gilbert LPN Let patient know that overall all labs are stable. No changes needed. Wil Nunes PA-C documented in this encounter [facility] 03-23-2022 History of Presen t illness Narrative Medicare Yearly Visit Medical B eligibilty date not able to find Date of last exam 02/19/2021 PAST MEDICAL HISTORY PAST MEDICAL HISTORY Diagnosis Date BENIGN HYPERTENSION BPH W URINARY OBS/LUTS Essential hypertension, benign 06/20/2007 Itchy eyes 12/12/2011 Malignant neoplasm of kidney, except pelvis 1987 right s/p nephrectomy Other chronic dermatitis due to solar radiation 06/19/2007 Other psoriasis 06/19/2007 Personal history of malignant neoplasm of kidney(V10.52) 11/05/2008 Radical nephrectomy (right), Dr. Stout 1988 Psoriatic arthritis (HCC) Dr Daniel PSORIATIC ARTHROPATHY 01/02/[address] Richards Viral warts, unspecified 06/19/2007 PAST SURGICAL HISTORY PAST SURGICAL HISTORY Procedure Laterality Date CATARACT EXTRACTION HX 11/2016 right CATARACT EXTRACTION HX 12/2016 Lt COLONOSCOPY 09/07/2004 repeat due 2015 MOHS HEAD/NECK STAGE 1 <=5 12/2012 left lower eyelid BCC MOHS and reconstruction PAST SURGICAL HISTORY OF 1987 right radical nephrectomy REPAIR UMBILICAL HERNIA hernia Feldene [Piroxicam] Medications reviewed: Yes FAMILY HISTORY FAMILY HISTORY Problem Relation Age of Onset other (Other [Other]) Mother in childbirth None Father Coronary Artery Disease Other none Colon Cancer Other none Prostate Cancer Other none Diabetes Daughter Cancer Brother lung Cancer Brother lung Cancer Sister ovarian SOCIAL HISTORY: SOCIAL HISTORY Social History Marital status: Spouse name: Yesika Cavazos Years of education: Number of children: 3 Occupational History 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 He watches his diet for sodium, low fat and low cholesterol some of the time. List of current specialists seen: Dr. Brown and Dr. Nelson, Optho End of Live Planning discussed including patients advanced directive wishes: Yes I am willing to follow Kirill's advanced directives. Depression screen Depression Screening 07/05/2017 01/03/2018 01/07/2019 03/23/2022 PHQ-2 Score - 2 2 0 CARLOS-2 Total Score 2 - - - Depression screening tool completed and reviewed. Based on score and interview, patient is not at risk for depression. Screening tool discussed with patient, and I recommended no further intervention at this time. Functional Ability/Safety Screen 1. Was the patient's timed Up and Go test unsteady or longer than 30 seconds? No 2. Does the patient need help with the phone, transportation, shopping,preparing meals, housework, laundry, medications or managing money? No 3. Does your home have rugs in the hallway, lack of grab bars in the bathroom(Y), lack of handrails on the stairs or have poor lighting? No Hearing Evaluation: normal PHYSICAL EXAM BP 170/98 (BP Site: Right Arm, BP Position: Sitting, BP Cuff Size: Regular Adult) Pulse 72 Resp 16 Ht 172.1 cm (5' 7.75 ) Wt 84.8 kg (187 lb) BMI 28.64 kg/m Alert and oriented X 3: YES Body mass index is 28.64 kg/m . See below ASSESSMENT/PLAN: 86 year old male The following prevention plan was discussed during the office visit and provided to the patient: See below Alejandro Mendoza MD Chief Complaint Patient presents with: Medicare Wellness Exam HPI Kirill Hussein is a 86 year old male who presents here today for Medicare Annual Visit. Patient with hx of HTN, HLP, Psoriatic arthritis, BPH, and those as below. Patient has been doing well. No new issues or concerns. Past medical history, appointments, medications, allergies reviewed. Previous Medical History PAST MEDICAL HISTORY Diagnosis Date BENIGN HYPERTENSION Benign prostatic hyperplasia without lower urinary tract symptoms 12/10/2008 Chronic pain of both knees 07/11/[address] Jaydn Van Dyslipidemia 07/23/2015 Essential hypertension, benign 06/20/2007 Ex-smoker 01/02/2017 [place] 12/2016: No AAA History of malignant neoplasm of kidney 11/05/2008 Radical nephrectomy (right), Dr. 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 Era Polanco Malignant neoplasm of kidney, except pelvis 1987 right s/p nephrectomy Other chronic dermatitis due to solar radiation 06/19/2007 Other psoriasis 06/19/2007 Psoriatic arthritis (HCC) Dr Daniel Transient global amnesia 12/31/2014 ? 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 Salamanca CATARACT EXTRACTION HX 11/2016 right CATARACT EXTRACTION HX 12/2016 Lt COLONOSCOPY 09/07/2004 repeat due 2014 MOHS HEAD/NECK STAGE 1 <=5 12/2012 left lower eyelid BCC MOHS and reconstruction PAST SURGICAL HISTORY OF 1987 right radical nephrectomy REPAIR UMBILICAL HERNIA hernia TOTAL KNEE REPLACEMENT Right 03/17/2019 Dr. Salamanca Family History FAMILY HISTORY Problem Relation Age of Onset other (Other) Mother in childbirth None Father Coronary Artery Disease Other none Colon Cancer Other none Prostate Cancer Other none Diabetes Daughter Cancer Brother lung Cancer Brother lung Cancer Sister ovarian Patient Allergies ALLERGIES Allergen Reactions Feldene [Piroxicam] Unknown Current Medications Current Outpatient Medications on File Prior to Visit Medication Sig atenolol (TENORMIN) 50 mg tablet Take 1 tablet by mouth once daily. amLODIPine (NORVASC) 2.5 mg tablet Take 1 tablet by mouth once daily. calcium carb/vit D3/minerals (CALCIUM-VITAMIN D ORAL) Take by mouth. multivitamin tablet Take 1 tablet by mouth once daily. Miscellaneous Medical Supply (BLOOD PRESSURE CUFF) Large adult, Take blood pressure once a day or as directed per Physician, Dx: I10 benzonatate (TESSALON PERLE) 100 mg capsule Take 2 capsules by mouth three times daily as needed. omega-3 fatty acids 1,000 mg cap Take 2 capsules by mouth once daily. aspirin(ECOTRIN LOW STRENGTH 81 MG TAB) Take one(1) tablet daily. Etanercept (ENBREL) 50 mg/mL (0.98 mL) SUBCUTANEOUS Syrg ONCE PER WEEK No current facility-administered medications on file prior to visit. Social History Social History Tobacco Use Smoking status: Former Types: Pipe Smokeless tobacco: Never Tobacco comments: former pipe, occasional snuff use Substance Use Topics Alcohol use: Yes Alcohol/week: 7.5 standard drinks Types: 3 Cans of Beer (12oz) per week Comment: beer Drug use: No Review of Symptoms REVIEW OF SYSTEMS GENERAL: No weight loss, malaise or fevers HEENT: Negative for frequent or significant headaches, No changes in hearing or vision, no nose bleeds or other nasal problems. Has his rhinorrhea. NECK: Negative for lumps, goiter, pain and significant neck swelling RESPIRATORY: Negative for cough, hemoptysis, wheezing, COPD, dyspnea or shortness of breath CARDIOVASCULAR: Negative for chest pain, leg swelling, hypertension, CHF or palpitations GI: No nausea, vomiting, or diarrhea, No heartburn or reflux symptoms, and no blood : No history of dysuria, blood MUSCULOSKELETAL: Negative for new or changes in his typical joint pain or swelling, back pain or muscle pain SKIN: Negative for lesions, rash, and itching PSYCH: Negative for sleep disturbance, mood disorder and recent psychosocial stressors HEMATOLOGY/LYMPHOLOGY: Negative for prolonged bleeding, bruising easily or swollen nodes ENDOCRINE: Negative for cold or heat intolerance, polyuria, polydipsia and goiter NEURO: No history of headaches, syncope, paralysis, seizures or tremors EXAM: BP 170/98 (BP Site: Right Arm, BP Position: Sitting, BP Cuff Size: Regular Adult) Pulse 72 Resp 16 Ht 172.1 cm (5' 7.75 ) Wt 84.8 kg (187 lb) BMI 28.64 kg/m BP 146/82 Pulse 72 Resp 16 Ht 172.1 cm (5' 7.75 ) Wt 84.8 kg (187 lb) BMI 28.64 kg/m BP 138/80 Pulse 72 Resp 16 Ht 172.1 cm (5' 7.75 ) Wt 84.8 kg (187 lb) BMI 28.64 kg/m Last 5 Encounter Wt Readings: Date: Wt: 03/23/2022 84.8 kg (187 lb) 03/13/2022 86.1 kg (189 lb 12.8 oz) 08/26/2021 87.1 kg (192 lb) 02/19/2021 86.6 kg (191 lb) 07/16/2020 87.5 kg (193 lb) General Appearance: Well appearing, alert, in no acute distress, well-hydrated, well nourished.. Skin: Skin color, texture, turgor normal, no suspicious rashes or lesions. Head: Normocephalic, no masses, lesions, tenderness or abnormalities. Eyes: Anicteric sclera. Pupils are equally round and reactive to light. Extraocular movements are intact. . Ears: External ears, TM's normal, canals clear. Neck: Supple, no adenopathy; thyroid symmetric, normal size, no bruits. Lungs: Lungs clear to auscultation. No wheezing, rhonchi, rales.. Heart: RRR without murmur, gallop, or rubs. No ectopy. Abdomen: Normal abdominal exam, Abdomen soft, non-tender. Bowel sounds normal. No masses, organomegaly. Extremities: No deformities, edema, skin discoloration, Good capillary refill. . Musculoskeletal: Muscular strength intact, No joint swelling, deformity, or tenderness. Peripheral Pulses: Normal. Neurologic: Gait normal. Reflexes normal and symmetric. Sensation to light touch and crainal nerves 2-12 intact.. Health Maintenance List DTAP,TDAP,TD(2 - Tdap) due on 03/21/2013 ADVANCE DIRECTIVE DISCUSSION Never done DEPRESSION ASSESSMENT Never done DIABETES SCREEN due on 01/07/2025 INFLUENZA Completed SHINGRIX VACCINE Completed COVID-19 VACCINE Completed PNEUMOCOCCAL: 65+ Completed Data reviewed Component Latest Ref Rng & Units 08/22/2021 Glucose 74 - 99 mg/dL 94 BUN 9 - 24 mg/dL 14 Creatinine 0.73 - 1.22 mg/dL 1.03 Sodium 136 - 144 mmol/L 143 Potassium 3.7 - 5.1 mmol/L 4.5 Chloride 97 - 105 mmol/L 105 CO2 22 - 30 mmol/L 30 Anion Gap 9 - 18 mmol/L 8 (L) Calcium 8.5 - 10.2 mg/dL 9.8 eGFR >=60 mL/min/1.73m 71 Total Cholesterol, Nonfasting <200 mg/dL 193 Triglycerides, Nonfasting <150 mg/dL 247 (H) HDL Cholesterol, Nonfasting >39 mg/dL 41 LDL Cholesterol, Nonfasting <100 mg/dL 103 (H) Non HDL Cholesterol, Nonfasting <130 mg/dL 152 (H) VLDL Cholesterol, Nonfasting <30 mg/dL 49 (H) Total Chol/HDL Ratio, Nonfasting <5.10 mg/dL 4.71 LDL/HDL Ratio, Nonfasting <2.54 mg/dL 2.51 A/P ASSESSMENT/PLAN: 1. Medicare annual wellness visit, subsequent - ICD9: V70.0, ICD10: Z00.00 (primary diagnosis) - Counseled on healthy diet and regular exercise - Follow up for annual exam in one year 2. Dyslipidemia - ICD9: 272.4, ICD10: E78.5 - to be determined upon return of lab results - Encouraged following a low fat, low cholesterol diet. - Discussed the benefits of regular aerobic exercise and weight loss. - Encouraged following a low carbohydrate, healthy oil intake diet. - Continue current therapy. 3. Essential hypertension, benign - ICD9: 401.1, ICD10: I10 - good control - Continue current medication(s) - Recommended regular aerobic exercise. - Recommend home blood pressure monitoring, to bring results in on next visit - Goal of BP <130/80 4. Psoriatic arthritis (HCC) - ICD9: 696.0, ICD10: L40.50 - management per Derm 5. 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 6. Benign prostatic hyperplasia without lower urinary tract symptoms - ICD9: 600.00, ICD10: N40.0 - stable no changes. 7. Melanoma in situ, unspecified site (HCC) - ICD9: 172.9, ICD10: D03.9 - management per Derm and Rheum 8. 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 Renal insufficiency - ICD9: 593.9, ICD10: N28.9 - await labs 10. Living will on file at physician's office - ICD9: V49.89, ICD10: Z78.9 - info updated 11. Advance directive discussed with patient - ICD9: V65.49, ICD10: Z71.89 - as per #10 F/u 6 months routine I spent a total of 40 minutes on the date of the service which included preparing to see the patient, [id number] patient care, completing clinical documentation, performing a medically appropriate examination, counseling and educating the patient/family/caregiver and ordering medications, tests, or procedures. Alejandro Mendoza MD documented in this encounter [facility] 03-14-2022 Miscellaneous Notes Patient given results and verbalized understanding of instructions given. Nicole Willis Let patient know their covid19/influenza test was negative. documented in this encounter [facility] 03-13-2022 History of Presen t illness Narrative Patient presents with: Cough: Chest congestion x1 day HPI: Cough and chest congestion since last night and trouble coughing up the phlegm. Positive symptoms: cough, Chest congestion, mild allergies, Nasal Congestion, Negative symptoms: Sore throat, Fever, Malaise, Fatigue, Nausea, Vomiting, palpitations, edema OTC: mucinex Completed 4th dose of Tangled COVID-19 vaccine in October. PAST MEDICAL HISTORY Diagnosis Date BENIGN HYPERTENSION Benign prostatic hyperplasia without lower urinary tract symptoms 12/10/2008 Chronic pain of both knees 07/11/[address] Jadyn Van Dyslipidemia 07/23/2015 Essential hypertension, benign 06/20/2007 Ex-smoker 01/02/2017 [place] 12/2016: No AAA History of malignant neoplasm of kidney 11/05/2008 Radical nephrectomy (right), Dr. 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 Around 2010 Vasomotor rhinitis 07/05/2016 Viral warts, unspecified 06/19/2007 MEDICATIONS: Current Outpatient Medications Medication Sig atenolol (TENORMIN) 50 mg tablet Take 1 tablet by mouth once daily. amLODIPine (NORVASC) 2.5 mg tablet Take 1 tablet by mouth once daily. calcium carb/vit D3/minerals (CALCIUM-VITAMIN D ORAL) Take by mouth. multivitamin tablet Take 1 tablet by mouth once daily. Miscellaneous Medical Supply (BLOOD PRESSURE CUFF) Large adult, Take blood pressure once a day or as directed per Physician, Dx: I10 benzonatate (TESSALON PERLE) 100 mg capsule Take 2 capsules by mouth three times daily as needed. omega-3 fatty acids 1,000 mg cap Take 2 capsules by mouth once daily. aspirin(ECOTRIN LOW STRENGTH 81 MG TAB) Take one(1) tablet daily. Etanercept (ENBREL) 50 mg/mL (0.98 mL) SUBCUTANEOUS Syrg ONCE PER WEEK No current facility-administered medications for this visit. ALLERGIES: ALLERGIES Allergen Reactions Feldene [Piroxicam] Unknown VITALS: BP 162/96 Pulse 85 Temp 36 C (96.8 F) Resp 20 Wt 86.1 kg (189 lb 12.8 oz) SpO2 96% BMI 29.10 kg/m PHYSICAL EXAM: GEN: Pleasant, in no acute distress. HEENT: PERRL, EOMI, conjunctiva clear Sinuses: non-tender frontal sinus, non-tender maxillary sinuses Throat: moist mucous membranes, no erythema, no exudate Neck: supple, no thyromegaly, no lymphadenopathy HEART: regular rate and rhythm, no murmurs LUNGS: bilateral bronchial crackles, no increased WOB ASSESSMENT/PLAN: 1. Acute cough - ICD9: 786.2, ICD10: R05.1 - XR CHEST 2V FRONTAL/LAT - no acute changes, pneumonia, or effusion. - COVID WITH FLUA+B, ROUTINE Suspect viral bronchitis. Treat with mucinex and fluids. Richard Rodrigues MD documented in this encounter [facility] 02-03-2022 Miscellaneous Notes Last office visit: 08/26/21 Next appointment scheduled: 03/23/22 Last labs: 01/07/22 Patient phones requesting refills as follows: Requested Prescriptions Pending Prescriptions Disp Refills amLODIPine (NORVASC) 2.5 mg tablet 90 tablet 1 Sig: Take 1 tablet by mouth once daily. Please review and advise. Ileana Rosario LPN documented in this encounter [facility] 08-26-2021 History of Presen t illness Narrative Chief Complaint Patient presents with: F/U 6 Month HPI Kirill Hussein is a 85 year old male who presents here today for Chronic Medical Conditions.. Patient with hx of HTN, HLP, Psoriatic arthritis, BPH, and those as below. Patient denies concerns. Past medical history, appointments, medications, allergies reviewed. Previous Medical History PAST MEDICAL HISTORY Diagnosis Date BENIGN HYPERTENSION Benign prostatic hyperplasia without lower urinary tract symptoms 12/10/2008 Chronic pain of both knees 07/11/[address] Jadyn Van Dyslipidemia 07/23/2015 Essential hypertension, benign 06/20/2007 Ex-smoker 01/02/2017 [place] 12/2016: No AAA History of malignant neoplasm of kidney 11/05/2008 Radical nephrectomy (right), Dr. Stout 1988 Itchy eyes 12/12/2011 Macular degeneration 07/16/2020 Malignant neoplasm of kidney, except pelvis 1987 right s/p nephrectomy Other chronic dermatitis due to solar radiation 06/19/2007 Other psoriasis 06/19/2007 Psoriatic arthritis (HCC) Dr Daniel Transient global amnesia 12/31/2014 ? 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 Salamanca CATARACT EXTRACTION HX 11/2016 right CATARACT EXTRACTION HX 12/2016 Lt COLONOSCOPY 09/07/2004 repeat due 2014 MOHS HEAD/NECK STAGE 1 <=5 12/2012 left lower eyelid BCC MOHS and reconstruction PAST SURGICAL HISTORY OF 1987 right radical nephrectomy REPAIR UMBILICAL HERNIA hernia TOTAL KNEE REPLACEMENT Right 03/17/2019 Dr. Salamanca Family History FAMILY HISTORY Problem Relation Age of Onset other (Other) Mother in childbirth None Father Coronary Artery Disease Other none Colon Cancer Other none Prostate Cancer Other none Diabetes Daughter Cancer Brother lung Cancer Brother lung Cancer Sister ovarian Patient Allergies ALLERGIES Allergen Reactions Feldene [Piroxicam] Unknown Current Medications Current Outpatient Medications on File Prior to Visit Medication Sig atenolol (TENORMIN) 50 mg tablet Take 1 tablet by mouth once daily. amLODIPine (NORVASC) 2.5 mg tablet Take 1 tablet by mouth once daily. calcium carb/vit D3/minerals (CALCIUM-VITAMIN D ORAL) Take by mouth. multivitamin tablet Take 1 tablet by mouth once daily. Miscellaneous Medical Supply (BLOOD PRESSURE CUFF) Large adult, Take blood pressure once a day or as directed per Physician, Dx: I10 benzonatate (TESSALON PERLE) 100 mg capsule Take 2 capsules by mouth three times daily as needed. aspirin(ECOTRIN LOW STRENGTH 81 MG TAB) Take one(1) tablet daily. Etanercept (ENBREL) 50 mg/mL (0.98 mL) SUBCUTANEOUS Syrg ONCE PER WEEK omega-3 fatty acids 1,000 mg cap Take 2 capsules by mouth once daily. No current facility-administered medications on file prior to visit. Social History Social History Tobacco Use Smoking status: Former Smoker Years: 10.00 Types: Pipe Smokeless tobacco: Never Used Tobacco comment: former pipe, occasional snuff use Substance Use Topics Alcohol use: Yes Alcohol/week: 7.5 standard drinks Types: 3 Cans of Beer (12oz) per week Comment: beer Drug use: No Review of Symptoms REVIEW OF SYSTEMS GENERAL: No weight loss, malaise or fevers NECK: Negative for lumps, goiter, pain and significant neck swelling RESPIRATORY: Negative for cough, hemoptysis, wheezing, COPD, dyspnea or shortness of breath CARDIOVASCULAR: Negative for chest pain, leg swelling, hypertension, CHF or palpitations NEURO: No history of headaches, syncope, paralysis, seizures or tremors EXAM: BP 116/76 (BP Site: Right Arm, BP Position: Sitting, BP Cuff Size: Large Adult) Pulse 72 Temp 36.4 C (97.6 F) Resp 18 Wt 87.1 kg (192 lb) BMI 29.44 kg/m General Appearance: Well appearing, alert, in no acute distress, well-hydrated, well nourished.. Neck: Supple, no adenopathy; thyroid symmetric, normal size, no bruits. Lungs: Lungs clear to auscultation. No wheezing, rhonchi, rales.. Heart: RRR without murmur, gallop, or rubs. No ectopy. Extremities: No deformities, edema, skin discoloration, clubbing or cyanosis. Good capillary refill. . Peripheral Pulses: Normal. Health Maintenance List COVID-19 VACCINE(4 - Booster for Pfizer series) due on 04/22/2021 ADVANCE DIRECTIVE DISCUSSION Never done DTAP,TDAP,TD(2 - Tdap) due on 02/19/2022 DIABETES SCREEN due on 08/22/2024 INFLUENZA Completed PNEUMOVAX AGE 65 AND OVER WITH 5YR LOOKBACK Completed SHINGRIX VACCINE Completed MENINGOCOCCAL CONJUGATE Aged Out Data reviewed Component Latest Ref Rng & Units 02/16/2021 08/22/2021 Protein, Total 6.3 - 8.0 g/dL 6.6 Albumin 3.9 - 4.9 g/dL 4.4 Calcium 8.5 - 10.2 mg/dL 9.5 9.8 Bilirubin, Total 0.2 - 1.3 mg/dL 0.5 Alkaline Phosphatase 38 - 113 U/L 80 AST 14 - 40 U/L 30 Glucose 74 - 99 mg/dL 103 (H) 94 BUN 9 - 24 mg/dL 15 14 Creatinine 0.73 - 1.22 mg/dL 1.39 (H) 1.03 Sodium 136 - 144 mmol/L 141 143 Potassium 3.7 - 5.1 mmol/L 4.6 4.5 Chloride 97 - 105 mmol/L 104 105 CO2 22 - 30 mmol/L 24 30 Anion Gap 9 - 18 mmol/L 13 8 (L) ALT 10 - 54 U/L 25 eGFR- 59 eGFR-All Other Races . 49 Color Yellow Straw (A) Clarity Clear Clear Glucose, Urine Negative mg/dL Negative Bilirubin, Urine Negative Negative Ketones, Urine Negative Negative Specific [place], Ur 1.005 - 1.030 1.009 Hemoglobin/Blood,Ur Negative Negative pH, Urine 5.0 - 8.0 7.0 Protein, Urine Negative Negative Urobilinogen Negative E.U./dL Negative Nitrites Negative Negative Leukest Negative Negative Comment SEE COMMENT Urine Simeon Comment SEE COMMENT WBC, Urine 0 - 5 /HPF 0-5 RBC, Urine 0 - 3 /HPF 0-3 eGFR >=60 mL/min/1.73m 71 Total Cholesterol, Nonfasting <200 mg/dL 204 (H) 193 Triglycerides, Nonfasting <150 mg/dL 356 (H) 247 (H) HDL Cholesterol, Nonfasting >39 mg/dL 37 (L) 41 LDL Cholesterol, Nonfasting <100 mg/dL 96 103 (H) Non HDL Cholesterol, Nonfasting <130 mg/dL 167 (H) 152 (H) VLDL Cholesterol, Nonfasting <30 mg/dL 71 (H) 49 (H) Total Chol/HDL Ratio, Nonfasting <5.10 mg/dL 5.51 (H) 4.71 LDL/HDL Ratio, Nonfasting <2.54 mg/dL 2.59 (H) 2.51 ASSESSMENT/PLAN: 1. Essential hypertension, benign - ICD9: 401.1, ICD10: I10 (primary diagnosis) - good control - Continue current medication(s) - Recommended regular aerobic exercise. - Recommend home blood pressure monitoring, to bring results in on next visit - Goal of BP <130/80 - URINALYSIS, WITH MICROSCOPIC - COMP METABOLIC PANEL 2. Dyslipidemia - ICD9: 272.4, ICD10: E78.5 - Fair control - Encouraged following a low fat, low cholesterol diet. - Encouraged following a low carbohydrate, healthy oil intake diet. - Continue current therapy. - LIPID PANEL, NONFASTING 3. Renal insufficiency - ICD9: 593.9, ICD10: N28.9 stable 4. Psoriatic arthritis (HCC) - ICD9: 696.0, ICD10: L40.50 Continue with rheum. F/u 6 months medicare with labs prior. Wil Nunes PA-C documented in this encounter [facility] Acute cough- Primary [facility] Diagnosis Medicare annual wellness visit, subsequent- Primary Routine general medical examination at a health care facility Dyslipidemia Other and unspecified hyperlipidemia Essential hypertension, benign Psoriatic arthritis (HCC) Psoriatic arthropathy Vasomotor rhinitis Allergic rhinitis, cause unspecified Benign prostatic hyperplasia without lower urinary tract symptoms Melanoma in situ, unspecified site (HCC) 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) Renal insufficiency Unspecified disorder of kidney and ureter Living will on file at physician's office Advance directive discussed with patient Other specified counseling [facility] Diagnosis Essential hypertension, benign- Primary Dyslipidemia Other and unspecified hyperlipidemia Renal insufficiency Unspecified disorder of kidney and ureter Macular degeneration of both eyes, unspecified type Psoriatic arthritis (HCC) Psoriatic arthropathy Proteinuria, unspecified type 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) Melanoma in situ, unspecified site (HCC) [facility] Diagnosis Hypertension, essential- Primary Unspecified essential hypertension [facility] Diagnosis Community acquired pneumonia of left lung, unspecified part of lung- Primary [facility] Diagnosis Medicare annual wellness visit, subsequent- Primary Routine general medical examination at a health care facility Essential hypertension, benign Dyslipidemia Other and unspecified hyperlipidemia Benign prostatic hyperplasia without lower urinary tract symptoms 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) Melanoma in situ, unspecified site (HCC) Advance directive discussed with patient Other specified counseling documented in this encounter [facility] Summary Purpose Family History No Family History Records FoundNo Family History Records Found Advance Directives No Advanced Directives Records FoundDocuments on File Type Date Recorded 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 Advance Directive(s) 07/06/2010 12:00 AM Advance Directive(s) 07/05/2006 12:00 AM Documents on File Type Date Recorded 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 Advance Directive(s) 07/06/2010 Advance Directive(s) 07/05/2006 Health Concerns Infection Onset Date Last Indicated Resolved Time COVID-19 Rule-Out 03/13/2022 03/13/2022 Infection Onset Date Last Indicated Resolved Time COVID-19 Rule-Out 03/13/2022 03/13/2022 03/14/2022 12:21 AM EDT Additional Source Comments (unrecognized sect ion and content) No Status Records FoundNo Status Records Found INFORMATION SOURCE (unrecogn ized section and content) DATE CREATED AUTHOR AUTHOR'S CRYS ATION 04/05/2023 [facility] Source Comments (unrecognize d section and content) In the event this informatio n is protected by the Federal Confidentiality of Alcohol and Drug Abuse Patient Records regulations: The Federal rules restrict any use of the information to criminally investigate or prosecute any alcohol or drug abuse patient.[facility] the event this information is protected by the Federal Confidentiality of Alcohol and Drug Abuse Patient Records regulations: The Federal rules restrict any use of the information to criminally investigate or prosecute any alcohol or drug abuse patient.[facility] the event this information is protected by the Federal Confidentiality of Alcohol and Drug Abuse Patient Records regulations: The Federal rules restrict any use of the information to criminally investigate or prosecute any alcohol or drug abuse patient.[facility] the event this information is protected by the Federal Confidentiality of Alcohol and Drug Abuse Patient Records regulations: The Federal rules restrict any use of the information to criminally investigate or prosecute any alcohol or drug abuse patient.[facility] the event this information is protected by the Federal Confidentiality of Alcohol and Drug Abuse Patient Records regulations: The Federal rules restrict any use of the information to criminally investigate or prosecute any alcohol or drug abuse patient.[facility] the event this information is protected by the Federal Confidentiality of Alcohol and Drug Abuse Patient Records regulations: The Federal rules restrict any use of the information to criminally investigate or prosecute any alcohol or drug abuse patient.[facility] the event this information is protected by the Federal Confidentiality of Alcohol and Drug Abuse Patient Records regulations: The Federal rules restrict any use of the information to criminally investigate or prosecute any alcohol or drug abuse patient.[facility] the event this information is protected by the Federal Confidentiality of Alcohol and Drug Abuse Patient Records regulations: The Federal rules restrict any use of the information to criminally investigate or prosecute any alcohol or drug abuse patient.[facility] the event this information is protected by the Federal Confidentiality of Alcohol and Drug Abuse Patient Records regulations: The Federal rules restrict any use of the information to criminally investigate or prosecute any alcohol or drug abuse patient.[facility] the event this information is protected by the Federal Confidentiality of Alcohol and Drug Abuse Patient Records regulations: The Federal rules restrict any use of the information to criminally investigate or prosecute any alcohol or drug abuse patient.[facility] the event this information is protected by the Federal Confidentiality of Alcohol and Drug Abuse Patient Records regulations: The Federal rules restrict any use of the information to criminally investigate or prosecute any alcohol or drug abuse patient.[facility] the event this information is protected by the Federal Confidentiality of Alcohol and Drug Abuse Patient Records regulations: The Federal rules restrict any use of the information to criminally investigate or prosecute any alcohol or drug abuse patient.[facility] the event this information is protected by the Federal Confidentiality of Alcohol and Drug Abuse Patient Records regulations: The Federal rules restrict any use of the information to criminally investigate or prosecute any alcohol or drug abuse patient.[facility] HospitalIn the event this information is protected by the Federal Confidentiality of Alcohol and Drug Abuse Patient Records regulations: The Federal rules restrict any use of the information to criminally investigate or prosecute any alcohol or drug abuse patient.[facility] HospitalIn the event this information is protected by the Federal Confidentiality of Alcohol and Drug Abuse Patient Records regulations: The Federal rules restrict any use of the information to criminally investigate or prosecute any alcohol or drug abuse patient.[facility] HospitalIn the event this information is protected by the Federal Confidentiality of Alcohol and Drug Abuse Patient Records regulations: The Federal rules restrict any use of the information to criminally investigate or prosecute any alcohol or drug abuse patient.[facility] HospitalIn the event this information is protected by the Federal Confidentiality of Alcohol and Drug Abuse Patient Records regulations: The Federal rules restrict any use of the information to criminally investigate or prosecute any alcohol or drug abuse patient.[facility] Reason for Visit (unrecogniz ed section and content) Reason Onset Date Comments Refill Request 02/02/2022 Reason Comments Cough Chest congestion x1 day Reason Comments Results Reason Comments Medicare Wellness Exam Reason Onset Date Comments Refill Request 07/31/2022 Reason Comments 6 Month Exam Reason Comments Recheck Reason Onset Date Comments Refill Request 02/06/2023 Care Teams (unrecognized sec tion and content) Safety Coordinator Relationship Specialty Start Date End Date Alejandro Mendoza MD [address] [place] [address] PCP - General Family Practice 12/31/14 Safety Coordinator Relationship Specialty Start Date End Date Alejandro Mendoza MD [address] [place] [address] PCP - General Family Medicine 12/31/14 Safety Coordinator Relationship Specialty Start Date End Date Alejandro Mendoza MD [address] [facility] [place] [place] [address] PCP - General Family Medicine 12/31/14 Safety Coordinator Relationship Specialty Start Date End Date Alejandro Mendoza MD [address] [facility] [place] [address] PCP - General Family Medicine 12/31/14 Safety Coordinator Relationship Specialty Start Date End Date Alejandro Mendoza MD [address] [facility] [place] [address] PCP - General Family Medicine 12/31/14 Safety Coordinator Relationship Specialty Start Date End Date Alejandro Mendoza MD [address] [facility] [place] [address] PCP - General Family Medicine 12/31/14 Safety Coordinator Relationship Specialty Start Date End Date Alejandro Mendoza MD [address] [facility] [place] [address] PCP - General Family Medicine 12/31/14 Safety Coordinator Relationship Specialty Start Date End Date Alejandro Mendoza MD [address] [facility] [place] [address] PCP - General Family Medicine 12/31/14 Safety Coordinator Relationship Specialty Start Date End Date Alejandro Mendoza MD [address] [facility] [place] [address] PCP - General Family Medicine 12/31/14 Safety Coordinator Relationship Specialty Start Date End Date Alejandro Mendoza MD [address] [facility] [place] [address] PCP - General Family Medicine 12/31/14 FOR RECORDS PERTAINING TO PATIENTS WHO ARE OR HAVE BEEN ENROLLED IN A CHEMICAL DEPENDENCY/SUBSTANCEABUSE PROGRAM, SOME INFORMATION MAY BE OMITTED. This clinical summary was aggregated from multiple sources. Caution should be exercised in using it in the provision of clinical care. This summary normalizes information from multiple sources, and as a consequence, information in this document may materially change the coding, format and clinical context of patient data. In addition, data may be omitted in some cases. CLINICAL DECISIONS SHOULD BE BASED ON THE PRIMARY CLINICAL RECORDS. [facility], [facility]. provides no warranty or guarantee of the accuracy or completeness of information in this document.
--- NOTE | 2023-05-19 12:04 | RAD_ITS ---
EXAM: XR CHEST, 1 VIEW CLINICAL INDICATION: cp TECHNIQUE: Frontal view of the chest. COMPARISON: 11/06/2022 FINDINGS: LUNGS AND PLEURAL SPACES: Left basilar pulmonary opacities similar to the prior examination may be scarring or atelectasis rather than pneumonia. No pneumothorax. No effusion. HEART: No significant abnormality. Cardiac silhouette not enlarged. MEDIASTINUM: Central airways and mediastinal contour are unremarkable. BONES/JOINTS: Degenerative changes in the spine and shoulders. No acute fracture. SOFT TISSUES: No significant abnormality. RAD/Chest 1 View (Portable) IMPRESSION: Left basilar pulmonary opacities similar to the prior examination may be scarring or atelectasis rather than pneumonia. Electronically Signed: Marcin Stroud DO at 12:35 EST ,
[2023-05-19 12:09] LABS: AST(SGOT) 19 U/L (15-37); Alanine Aminotransfer ALT/SGPT 26 U/L (16-61); Albumin, Serum 3.9 g/dL (3.2-5.0); Alkaline Phosphatase 85 U/L (45-117); Anion Gap 3 (5-15); BUN 18 mg/dL (7-18); BUN/Creat Ratio 15.3 RATIO (10-20); Bilirubin, Direct 0.18 mg/dL (0.00-0.30); Calcium,Total 9.3 mg/dL (8.5-10.1); Chloride 104 mmol/L (98-107); Creatinine, Serum 1.18 mg/dL (0.70-1.30); EST Glomerular Filtration Rate 62 mL/min (>60); Est Glom Filt Rate - Afr Amer 75 mL/min (>60); Estimated Creatinine Clearance 42.67 ml/min; Globulin 3.3 g/dL (2.2-4.2); Glucose 156 mg/dL (74-106); Potassium 4.4 mmol/L (3.5-5.1); Protein, Total 7.2 g/dL (6.4-8.2); Sodium Level 138 mmol/L (136-145); Troponin-I HS (w/2H Reflex) 9 pg/mL (3.0-78.0)
--- NOTE | 2023-05-19 13:33 | PCM.HP.STD ---
HPI - General General Date of Admission: 05/19/23 Date of Service: 05/19/23 Chief Complaint: Syncope HPI Narrative ESTELA GUEVARA, is a 87 M who presented to the emergency department at [facility] on 05/19/2023 after syncopal episode that he experienced earlier this morning. Patient states he felt fine last night he watched the [employer] and then went to bed. He woke up and he felt a little bit off just feeling fatigued and a little bit weak. He was in the kitchen with his supervising her cooking when he started to feel off and then per his passed out for about 2 minutes. He had no loss of bowel or bladder. He did not bite his tongue. He did hit his head on the right side with an abrasion. He is not on any anticoagulation other than aspirin at baseline. He denies any other injuries. He states he never had anything like this previously and feels currently back to his baseline other than neck pain. He has chronic neck pain but this is little bit more severe than his baseline. Vital signs on presentation showed temperature of 97.2, heart rate 71, blood pressure was 156/104, respiratory rate 18 and oxygen saturations are 96% on room air. His CBC is unremarkable with a normal differential. His chemistry panel is unremarkable other than elevated glucose at 156. Liver functions normal. Troponin was 9. EKG showed normal sinus rhythm with normal intervals, [address]-T wave changes concerning for acute ischemia. CT of the brain shows right frontal scalp and right periorbital soft tissue swelling with chronic microvascular changes and findings consistent with ankylosing spondylitis. Cervical spine CT shows no acute fracture and stable severe stenosis at C1-C2 that is unchanged from previous exam 04/04/20202011. Checks x-ray shows left basilar pulmonary opacities that are similar to previous exam from October 2022. COVID and flu were ordered and are pending. With this being a new syncopal event. ED requested admission for 24-hour period to monitor on telemetry and further workup if needed. PENDING SALE TO [facility] Medical History History of kidney cancer HLD (hyperlipidemia) HTN (hypertension) Psoriasis with arthropathy Transient global amnesia Home Medications amlodipine 2.5 mg tablet 2.5 mg PO DAILY BP 07/11/18 [History Last Taken 03/17/19] atenolol 50 mg tablet 50 mg PO DAILY BP 07/11/18 [History Last Taken 03/17/19] calcium carbonate-vitamin D3 600 mg-125 unit tablet (Calcium) 1 ea PO DAILY SUPPLEMENT 07/11/18 [History Last Taken Unknown] etanercept 50 mg/mL (1 mL) subcutaneous syringe (Enbrel) 50 mg SQ TH ARTHRITIS 07/11/18 [History Last Taken Unknown] multivitamin with minerals (Multiple Vitamin-Minerals tablet) 1 ea PO DAILY SUPPLEMENT 07/11/18 [History Last Taken Unknown] benzonatate 100 mg capsule 200 mg PO TID PRN PRN Cough 03/05/19 [History Last Taken Unknown] fluticasone propionate 50 mcg/actuation nasal spray,suspension 1 spray NASAL DAILY nasal congestion 03/05/19 [History Last Taken Unknown] pseudoephedrine-guaifenesin ER 60 mg-600 mg tablet,extend release 12hr 1 ea PO BID cough 03/05/19 [History Last Taken Unknown] vit C 250 mg-vit E 90 mg-zinc 40 mg-copper 1 fd-igwidu-rzblcy capsule 1 ea PO DAILY eye vitamin 03/05/19 [History Last Taken Unknown] acetaminophen 500 mg tablet 1,000 mg (2 x 500 mg) PO Q8 #90 tabs 03/18/19 [Rx Last Taken Unknown] aspirin 325 mg tablet 325 mg PO BID #60 tabs 03/18/19 [Rx Last Taken Unknown] albuterol sulfate 90 mcg/actuation aerosol inhaler (Ventolin HFA) 2 puff inhalation Q4H PRN PRN Wheezing ##1 11/06/22 [Rx Last Taken Unknown] Allergy/AdvReac Type Severity Reaction Status Date / Time piroxicam [From Feldene] Allergy Unknown Verified 05/19/23 11:26 adhesive tape AdvReac Rash Verified 05/19/23 11:26 oxycodone AdvReac Other Verified 05/19/23 11:26 Family History no significant family his no significant family history Surgical History (Updated 05/19/23 @ 14:[address] Zahira Hernandez DO) Total knee replacement status Social History (Updated 05/19/23 @ 14:[address] Zahira Hernandez DO) household members: spouse housing: house Smoking Status: Former smoker alcohol intake: current alcohol intake frequency: holidays/special occasions only substance use type: does not use ROS Constitutional Constitutional: Reports fatigue; Denies anorexia, change in weight, chills, fever(s), malaise, night sweats, weakness or other Eyes Eyes: Denies blurry vision, change in eye color, change in vision, discharge from eye(s), double vision, erythema, eye pain, loss of vision or other ENT HEENT: Denies abnormal hearing, dysphagia, ear pain, epistaxis, headache(s), hearing loss, nasal congestion, nasal discharge, post nasal drip, sinus pressure, sore throat or other Cardiovascular Cardiovascular: Denies chest pain, claudication, dyspnea on exertion, edema, lightheadedness, orthopnea, palpitations, paroxysmal nocturnal dyspnea, rapid heart rate, syncope or other Respiratory/Chest Respiratory/Chest: Denies cough, dyspnea, excessive phlegm production, hemoptysis, productive cough, shortness of breath at rest, shortness of breath with exertion, wheezing or other Gastrointestinal Gastrointestinal: Denies abdominal pain, coffee ground emesis, constipation, diarrhea, dyspepsia, hematemesis, hematochezia, loose stools, melena, nausea, vomiting or other Genitourinary Genitourinary: Denies burning urination, difficulty urinating, dysuria, hematuria, nocturia, urinary frequency, urinary hesitancy, urinary incontinence, urinary urgency or other Musculoskeletal Musculoskeletal: Reports joint pain, joint stiffness, joint swelling and neck pain; Denies arthralgias, back pain, myalgias or other Psychiatric Psychiatric: Denies anxiety, depression, homicidal ideation, suicidal ideation or other Endocrine Endocrinology: Denies change in body appearance, cold intolerance, excessive sweating, heat intolerance, polydipsia, polyuria or other Hematologic/Lymphatic Hematologic/Lymphatic: Denies anemia, easy bleeding, easy bruising, lymphadenopathy or other Allergic/Immunologic Allergic/Immunologic: Denies rhinitis, hives, eczemia, asthma or other Vital Signs Vital Signs Vital Signs: 05/19/23 11:26 05/19/23 11:32 Temperature 97.2 F L Temperature Source Temporal Pulse Rate 71 Respiratory Rate 18 Respiratory Effort Normal Non-Labored Respiratory Pattern Normal Blood Pressure 156/104 H Blood Pressure Mean 121 Pulse Ox 96 Oxygen Delivery Method Room Air Weight Weight: 90.3 kg Body Mass Index (BMI) 30.2 Physical Exam Const alert, oriented x3, no apparent distress, average body habitus, healthy appearing and well nourished Constitutional Narrative: Elderly, white male who appears younger than stated age, sitting up in bed, and daughter at bedside, patient appears comfortable and nontoxic, complaining of only neck pain at this time General Appearance: cooperative HEENT normocephalic, head/scalp atraumatic and moist oral mucous membranes HEENT Narrative: Abrasion on right frontal area of forehead head Eyes PERRL, EOMs intact bilaterally and conjunctivae normal Eyes Narrative: No scleral icterus Neck no lymphadenopathy and supple Neck Narrative: Trachea midline, no thyroid enlargement Resp normal respiratory effort, no retractions, no use of accessory muscles and clear to auscultation bilaterally Auscultation: Negative for crackles, rhonchi or wheezes Cardio regular rate, regular rhythm, S1 normal heart sound, S2 normal heart sound, no murmurs, no rub, no gallops and no clicks GI normal to inspection, nondistended, normoactive bowel sounds, soft to palpation and non-tender Extremity no clubbing, cyanosis or edema Extremity Narrative: Needle pulses are 2+ Skin skin turgor normal, no jaundice, no petechiae and no mottling Skin Narrative: Small abrasion on mid back that has been there for about a week per his that is healing, abrasion on right forehead as noted above, patchy areas on arms that appear to be actinic keratoses and patient does have other sun related changes on his skin Neuro oriented x3, CN's II-XII intact bilaterally, moves all extremities and no focal motor deficits Neuro Narrative: Decreased cervical spine range of motion which is chronic Speech: speech normal Psych affect normal Psych Narrative: Contact is good, patient is joking intermittently, appears comfortable and nontoxic Results Lab / Micro Data 05/19/23 11:40 05/19/23 11:40 Labs: Laboratory Results - last 24 hr 05/19/23 11:40: WBC 6.8, RBC 5.04, Hgb 15.5, Hct 47.9, MCV 95.0 H, MCH 30.8, MCHC 32.4, RDW Std Deviation 48.7 H, RDW Coeff of Tata 14.0, Plt Count 226, MPV 9.6, Immature Gran % (Auto) 0.100, Neut % (Auto) 60.4, Lymph % (Auto) 26.8, Duchesne % (Auto) 8.6, Eos % (Auto) 3.5, Baso % (Auto) 0.6, Absolute Neuts (auto) 4.1, Absolute Lymphs (auto) 1.83, Nucleated RBC % 0, Sodium 138, Potassium 4.4, Chloride 104, Carbon Dioxide 31.0, Anion Gap 3 L, BUN 18, Creatinine 1.18, Estim Creat Clear Calc 42.67, Est GFR (MDRD) Af Amer 75, Est GFR (MDRD) Non-Af 62, BUN/Creatinine Ratio 15.3, Glucose 156 H, Calcium 9.3, Total Bilirubin 0.70, Direct Bilirubin 0.18, AST 19, ALT 26, Alkaline Phosphatase 85, Troponin I High Sens 9, Total Protein 7.2, Albumin 3.9, Globulin 3.3 Imagaing Radiology Impression Brain CT 05/19/23 11:40 IMPRESSION: 1. Right frontal scalp and right periorbital soft tissue swelling. No CT evidence of acute intracranial pathology. Chronic microvascular ischemic changes. 2. Findings consistent with ankylosing spondylitis. 3. Hypertrophic changes at the C1-C2 articulations associated with anterior subluxation of C1 in relation to C2 and severe canal stenosis at the level of C1. Consider follow-up MRI and neurosurgical consultation. No evidence of acute cervical spine fracture. Electronically Signed: Marcin PetersonTulio AdelfoDO micky at 12:21 EST , Cervical Spine CT 05/19/23 11:40 IMPRESSION: 1. Right frontal scalp and right periorbital soft tissue swelling. No CT evidence of acute intracranial pathology. Chronic microvascular ischemic changes. 2. Findings consistent with ankylosing spondylitis. 3. Hypertrophic changes at the C1-C2 articulations associated with anterior subluxation of C1 in relation to C2 and severe canal stenosis at the level of C1. Consider follow-up MRI and neurosurgical consultation. No evidence of acute cervical spine fracture. Electronically Signed: Marcin EmanuelDO micky at 12:23 EST , ADDENDUM: 05/19/23 1238 IMPRESSION: 1. Right frontal scalp and right periorbital soft tissue swelling. No CT evidence of acute intracranial pathology. Chronic microvascular ischemic changes. 2. Findings consistent with ankylosing spondylitis. 3. Hypertrophic changes at the C1-C2 articulations associated with anterior subluxation of C1 in relation to C2 and severe canal stenosis at the level of C1. Consider follow-up MRI and neurosurgical consultation. No evidence of acute cervical spine fracture. N.B. : Myrna Basurto MD, confirmed on 05/19/2023 12:31:47 (ET) that the healthcare facility has received the radiology report. Electronically Signed: Marcin Stroud DO at 12:23 EST , ADDENDUM: 05/19/23 1250 IMPRESSION: undefined ADDENDUM: 05/19/23 1304 IMPRESSION: undefined Chest X-Ray 05/19/23 12:04 IMPRESSION: Left basilar pulmonary opacities similar to the prior examination may be scarring or atelectasis rather than pneumonia. Electronically Signed: Marcin Stroud DO at 12:35 EST , Assessment & Plan Assessment/Plan (1) Contusion of head: (2) Syncope: (3) Cervical stenosis of spinal canal: (4) Hyperglycemia: PLAN: Plan Syncope -Will monitor on telemetry for 24 hours -EKG is unremarkable -Will check COVID and flu given patient feeling a bit weak and off this morning -Patient wanting to leave if stable after 24 hours so will not be able to obtain echo given the holiday weekend and echo is gone for today -Would recommend outpatient echocardiogram after discharge and will have patient follow-up with primary care physician if able to go home with stable telemetry -Check TSH -Cycle cardiac enzymes Contusion to head -CT of the brain is negative -As needed Tylenol for pain Hyperglycemia -No baseline history of diabetes -Check hemoglobin A1c -Monitor Severe cervical stenosis C1-C2 -No clinical symptoms at this time -Degree of stenosis is unchanged when compared to previous imaging from 2012 -Outpatient follow-up Hypertension -Continue home amlodipine -Continue home fall Psoriasis/psoriatic arthritis -Restart Enbrel on discharge History of kidney cancer -Renal function is stable -Continue to monitor -Ongoing outpatient follow-up as previously recommended History of hyperlipidemia -Patient takes no medications -Continued outpatient follow-up History of transient global amnesia -No current issues -Monitor clinically DVT prophylaxis -Lovenox subcu daily CODE STATUS - Charges/Coding Visit Charges Inpatient E&M: 02387 Init Hosp L2
[2023-05-19 13:48] LABS: Reflex Troponin-HS? (from REC) Y
--- OUTSIDE RECORDS SUMMARY | 2023-05-19 14:00 | XMS RPT_ITS | CCD ---
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; Translations: [On angiotensin receptor [...] Alejandro Mendoza MD Work Phone: [facility] 04-02-2023 15:15-0500 Systolic blood pressure 130 mm[Hg] Alejandro Mendoza MD Work Phone: [facility] 04-02-2023 14:32-0500 Body height 172.1 cm Alejandro Mendoza MD Work Phone: [facility] 04-02-2023 14:32-0500 Body weight 86.18 kg Alejandro Mendoza MD Work Phone: [facility] 04-02-2023 14:32-0500 Heart rate 70 /min Alejandro Mendoza MD Work Phone: [facility] 04-02-2023 14:32-0500 Respiratory rate 22 /min Alejandro Mendoza MD Work Phone: [facility] 10-23-2022 11:39-0400 Diastolic blood pressure 66 mm[Hg] Wil Nunes PA-C Work Phone: [facility] 10-23-2022 11:39-0400 Heart rate 60 /min Wil Nunes PA-C Work Phone: [facility] 10-23-2022 11:39-0400 Systolic blood pressure 118 mm[Hg] Wil Nunes PA-C Work Phone: [facility] 10-23-2022 11:27-0400 Body temperature 97.59 [degF] Wil Nunes PA-C Work Phone: [facility] 10-23-2022 11:27-0400 Body weight 85.73 kg Wil Nunes PA-C Work Phone: [facility] 10-23-2022 11:27-0400 Respiratory rate 16 /min Wil Nunes PA-C Work Phone: [facility] 09-21-2022 12:50-0400 Diastolic blood pressure 96 mm[Hg] Wil Nunes PA-C Work Phone: [facility] 09-21-2022 12:50-0400 Heart rate 61 /min Wil Nunes PA-C Work Phone: [facility] 09-21-2022 12:50-0400 Systolic blood pressure 160 mm[Hg] Wil Nunes PA-C Work Phone: [facility] 09-21-2022 12:14-0400 Body temperature 97.81 [degF] Wil Des PA-C Work Phone: [facility] 09-21-2022 12:14-0400 Body weight 87.54 kg Wil Des PA-C Work Phone: [facility] 09-21-2022 12:14-0400 Respiratory rate 18 /min Wil Nunes PA-C Work Phone: [facility] 03-23-2022 13:29-0400 Diastolic blood pressure 80 mm[Hg] Alejandro Mendoza MD Work Phone: [facility] 03-23-2022 13:29-0400 Systolic blood pressure 138 mm[Hg] Alejandro Mendoza MD Work Phone: [facility] 03-23-2022 12:57-0400 Body height 172.1 cm Alejandro Mendoza MD Work Phone: [facility] 03-23-2022 12:57-0400 Body weight 84.82 kg Alejandro Mendoza MD Work Phone: [facility] 03-23-2022 12:57-0400 Heart rate 72 /min Alejandro Mendoza MD Work Phone: [facility] 03-23-2022 12:57-0400 Respiratory rate 16 /min Alejandro Mendoza MD Work Phone: [facility] 03-13-2022 09:15-0400 Body temperature 96.8 [degF] Richard Rodrigues MD Work Phone: [facility] 03-13-2022 09:15-0400 Body weight 86.09 kg Richard Rodrigues MD Work Phone: [facility] 03-13-2022 09:15-0400 Diastolic blood pressure 96 mm[Hg] Richard Rodrigues MD Work Phone: [facility] 03-13-2022 09:15-0400 Heart rate 85 /min Richard Rodrigues MD Work Phone: [facility] 03-13-2022 09:15-0400 Respiratory rate 20 /min Richard Rodrigues MD Work Phone: [facility] 03-13-2022 09:15-0400 SaO2% (BldA) [Mass fraction] 96 % Richard Rodrigues MD Work Phone: [facility] 03-13-2022 09:15-0400 Systolic blood pressure 162 mm[Hg] Richard Rodrigues MD Work Phone: [facility] 08-26-2021 13:53-0400 Body temperature 97.59 [degF] Wil Nunes PA-C Work Phone: [facility] 08-26-2021 13:53-0400 Body weight 87.09 kg Wil Nunes PA-C Work Phone: [facility] 08-26-2021 13:53-0400 Diastolic blood pressure 76 mm[Hg] Wil Nunes PA-C Work Phone: [facility] 08-26-2021 13:53-0400 Heart rate 72 /min Wil Nunes PA-C Work Phone: [facility] 08-26-2021 13:53-0400 Respiratory rate 18 /min Wil Nunes PA-C Work Phone: [facility] 08-26-2021 13:53-0400 Systolic blood pressure 116 mm[Hg] Wil Nunes PA-C Work Phone: [facility] Encounters Encounter Date Encounter Type Care Provider Facility Start: 04-03-2023 Telephone encounter Alejandro Mendoza MD Work Phone: [facility] [place] Procedures Date Procedure Procedure Detail Performing Clinician Start: 02-16-2023 Ventiva COVI D-19 VACCINE ( SEASON) AGE 12+ [...] Detail Author Start: 04-02-2026 [facility] Start: 12-04-2025 [facility] Start: 07-04-2025 DIABETES SCREEN DIABETES SCREEN [facility] Start: 03-23-2025 DIABETES SCREEN DIABETES SCREEN [facility] Start: 01-07-2025 DIABETES SCREEN DIABETES SCREEN [facility] Start: 08-22-2024 DIABETES SCREEN DIABETES SCREEN [facility] Start: 04-02-2024 RSV Vaccine (1 - 1-d ose 60+ series) RSV Vaccine (1 - 1-dose 60+ series) [facility] Immunizations Immunization Date Immunization Notes Care Provider Fa cility 02-16-2023 COVID-19 vaccine, ag e 12+ yr, 2022- season (PFIZER-BIONTECH) Immunization [place] Work Phone: [facility] Work Phone: 02-16-2023 influenza (HD-IIV4) vaccine, age 65+ yr, high dose, quadrivalent, PF (FLUZONE HIGH-DOSE) Immunization [place] Work Phone: [facility] Work Phone: 03-17-2022 COVID-19 booster vaccine, age 12+ yr, bivalent (PFIZER-BIONTECH) Nh Nurse Work Phone: [facility] Work Phone: 03-17-2022 influenza, high-dose , quadrivalent vaccine (FLUZONE HIGH DOSE QUADRIVALENT) Mi Nurse Work Phone: [facility] Work Phone: 03-17-2022 influenza virus vaccine, unspecified formulation Jackelin Paulino APRN.RAIL CAR MECHANIC Work Phone: [facility] 02-25-2021 zoster vaccine recombinant Wli Nunes PA-C Work Phone: [facility] 02-19-2021 influenza, high-dose , quadrivalent vaccine (FLUZONE HIGH DOSE QUADRIVALENT) Wil Nunes PA-C Work Phone: [facility] 12-04-2020 zoster vaccine recombinant Wil Nunes PA-C Work Phone: [facility] 07-08-2020 COVID-19 vaccine, ag e 12+ yr (PFIZER-BIONTECH - PURPLE TOP) Wil Nunes PA-C Work Phone: [facility] Work Phone: 06-17-2020 COVID-19 vaccine, ag e 12+ yr (PFIZER-BIONTECH - PURPLE TOP) Wil Nunes PA-C Work Phone: [facility] Work Phone: 02-21-2020 influenza, high-dose , quadrivalent vaccine (FLUZONE HIGH DOSE QUADRIVALENT) Wil Nunes PA-C Work Phone: [facility] 03-28-2019 influenza, high dose seasonal, preservative-free Wil Nunes PA-C Work Phone: [facility] Work Phone: 02-16-2018 influenza, high dose seasonal, preservative-free Wil Nunes PA-C Work Phone: [facility] 03-24-2017 influenza, high dose seasonal, preservative-free Wil Nunes PA-C Work Phone: [facility] Work Phone: 03-03-2016 influenza, high dose seasonal, preservative-free Wil Nunes PA-C Work Phone: [facility] Work Phone: 07-02-2015 pneumococcal conjuga te vaccine, 13 valent Wil Nunes PA-C Work Phone: [facility] Work Phone: 04-12-2015 influenza, high dose seasonal, preservative-free Wil Nunes PA-C Work Phone: [facility] Work Phone: 03-18-2014 influenza, seasonal, injectable Wil Nunes PA-C Work Phone: [facility] 02-02-2014 pneumococcal polysaccharide vaccine, 23 valent Wil Des PA-C Work Phone: [facility] Work Phone: 02-22-2013 influenza virus vaccine, unspecified formulation Wil Nunes PA-C Work Phone: [facility] Work Phone: 03-30-2012 influenza virus vaccine, unspecified formulation Wil Nunes PA-C Work Phone: [facility] 03-11-2011 influenza virus vaccine, unspecified formulation Wil Nunes PA-C Work Phone: [facility] Work Phone: 03-01-2010 influenza virus vaccine, unspecified formulation Wil Nunes PA-C Work Phone: [facility] Work Phone: 05-03-2009 novel [id number], all formulations Wil Nunes PA-C Work Phone: [facility] Work Phone: 02-22-2009 influenza virus vaccine, unspecified formulation Wil Nunes PA-C Work Phone: [facility] Work Phone: 03-25-2008 influenza virus vaccine, unspecified formulation Wil Nunes PA-C Work Phone: [facility] Work Phone: 03-18-2007 influenza virus vaccine, unspecified formulation Wil Nunes PA-C Work Phone: [facility] Work Phone: 03-26-2006 influenza virus vaccine, unspecified formulation Wil Nunes PA-C Work Phone: [facility] Work Phone: 03-21-2003 diphtheria and tetan us toxoids, adsorbed for pediatric use Wil Nunes PA-C Work Phone: [facility] Work Phone: 04-09-2000 pneumococcal polysaccharide vaccine, 23 valent Wil Nunes PA-C Work Phone: [facility] Work Phone: Payers Date Payer Category Payer Private Health Insurance [facility] INDEMNITY [id number] 2002-Present [phone] [address] [place] [address] Indemnity [id number] 2002 Private [facility] Insurance [facility] INDEMNITY [id number] 2002-Present [phone] [address] [place] [address] Indemnity [id number] 2002 Unknown [id number] 1990 Medicare MEDICARE MEDICAR E A AND B [id number] 1990-Present [phone] [address] [address] [place] [address] Medicare [id number] 1990 Medicare [id number] 1990 Medicare [id number] Social History Date Type Detail Facility Start: 05-19-2011 End: 04-02-2023 Tobacco smoking status NHIS Ex-smoker [facility] History of tobacco use Pipe Smoker [facility] Start: 05-19-2011 End: 03-13-2022 Tobacco use and exposure Smokeless tobacco non-user [facility] History of tobacco use Snuff User [facility] Start: 08-26-2021 End: 04-02-2023 Alcohol intake Current drinker of alcohol (finding) [facility] Start: 08-26-2021 End: 09-21-2022 Alcohol intake [facility] Start: 12-12-2011 End: 03-13-2022 Tobacco Comment former pipe, occasional snuff use [facility] Start: 1935 Sex Assigned At Male [facility] Start: 08-16-2021 End: 03-23-2022 Exposure to SARS-CoV-2 (event) Not sure [facility] History of tobacco use Current smoker [facility] Start: 09-21-2022 End: 04-02-2023 Tobacco use and exposure User of smokeless tobacco [facility] Work Phone: History of tobacco use Chews Tobacco [facility] Work Phone: Start: 09-14-2022 History SDOH Alcohol Frequency 2 [facility] Start: 09-14-2022 History SDOH Alcohol Std Drinks 1 [facility] Start: 09-14-2022 History SDOH Social Connections Phone 5 [facility] Start: 09-14-2022 History SDOH Social Connections Get Together 3 [facility] Start: 09-21-2022 Tobacco Comment former pipe, occasional snuff use. About 25-50 pouches in a week [facility] Start: 09-21-2022 Alcohol Comment beer, whisky [facility] Start: 09-14-2022 End: 09-21-2022 Social connection and isolation panel [facility] Do you belong to any clubs or organizations such as quaker groups, unions, fraternal or athletic groups, or school groups? No [facility] Are you now , , , , never or living with a partner? [facility] How often to you hav e a drink containing alcohol? Monthly or less [facility] How many standard dr inks containing alcohol do you have on a typical day? 1 or 2 [facility] How often do you hav e 6 or more drinks on 1 occasion? Never [facility] How hard is it for y ou to pay for the very basics like food, housing, medical care, and heating Somewhat hard [facility] Adult Depression Screening Assessment 0 [facility] Do you feel stress - tense, restless, nervous, or anxious, or unable to sleep at night because your mind is troubled all the time - these days [OSQ] Only a little [facility] (I/We) worried wheth er (my/our) food would run out before (I/we) got money to buy more. Never true [facility] Start: 01-02-2019 Gender identity Identifies as male gender (finding) [facility] Start: 01-02-2019 Sexual orientation Heterosexual (finding) [facility] Clinical Notes 08-26-2021 to 04-04-2023 Telephone [...] diet. documented in this encounter [facility] 04-02-2023 Note HNO ID: [id number] Author: Alejandro Mendoza MD Service: ? Author [...] History Occupation Employer Comment DISABLED, arthritis [employer]* Social History Main Topics Smoking status: [...] 08/30/2021 Dr. Antunez (more content not included)... [facility] 04-02-2023 Instructions Alejandro Mendoza MD - 04/02/2023 3:18 PM EST Please consider getting the RSV vaccine from a local pharmacy. Consider getting the Tdap vaccine for tetanus update from the health dept. documented in this encounter [facility] 04-02-2023 History of Presen t illness [...] Occupational History Occupation Employer Comment DISABLED, arthritis [facility] Social History Main Topics Smoking status: Former [...] which included preparing to see the patient, [id number] patient care, completing clinical documentation, performing a medically appropriate examination, counseling and educating the patient/family/caregiver and ordering medications, tests, or procedures. Alejandro Mendoza MD documented in this encounter [facility] 02-06-2023 Miscellaneous Notes The following approved [...] LPN documented in this encounter [facility] 11-06-2022 Note HNO ID: [id number] Author: Kaitlyn Martin MA Service: ? Author Type: China Painter Type: Progress Notes Filed: 11/06/2022 1:29 PM Note Text: Scan on 11/06/2022 10:11 AM by External Provider, DOMINGO: X-ray Kaitlyn Martin MA [facility] 11-06-2022 History of Presen t illness Narrative Scan on 11/06/2022 10:11 AM by External Provider, DOMINGO: X-ray Kaitlyn Martin MA documented in this encounter [facility] 11-03-2022 Miscellaneous Notes Call placed to [...] RN documented in this encounter [facility] 11-02-2022 Note HNO ID: [id number] Author: RT Tenisha(R) Service: ? Author Type: Maintenance Data Analyst Type: Progress Notes Filed: 11/02/2022 5:21 PM [...] RT Tenisha(R) November 02, 2022 5:11 PM [facility] 11-02-2022 Note HNO ID: [id number] Author: Jackelin Paulino APRN.RAIL CAR MECHANIC Service: ? Author Type: Nurse Practitioner Type: [...] + RSV Je (more content not included)... [facility] 10-23-2022 Note HNO ID: [id number] Author: Wil Nunes PA-C Service: ? Author Type: Physician Preassembler [employer]ed Circuit Board Type: Progress Notes Filed: 10/23/2022 11:54 AM [...] - ICD9: 4 (more content not included)... [facility] 10-23-2022 History of Presen t illness Narrative [...] Mediterranean diet - Recommend regular aerobic exercise iWl Nunes PA-C documented in this encounter [facility] 09-22-2022 Miscellaneous Notes Pt's notified of results and instructions, verbalizes understanding. Massimo Gilbert LPN Let patient know that overall labs are stable. His cholesterol is slightly worse which could be related to his diet. I won't make any medication changes and we will monitor. Watch diet. documented in this encounter [facility] 09-21-2022 Note HNO ID: [id number] Author: Wil Nunes PA-C Service: ? Author Type: Physician Preassembler [employer]ed Circuit Board Type: Progress Notes Filed: 09/21/2022 2:11 PM [...] clubbing or cy (more content not included)... [facility] 09-21-2022 History of Presen t illness Narrative [...] PA-C documented in this encounter [facility] 07-31-2022 Miscellaneous Notes Last office visit: 03/23/22 F/u scheduled: 09/21/22 Zahira Ochoa Ma documented in this encounter [facility] 03-24-2022 Miscellaneous Notes Pt notified of same. Massimo Gilbert LPN Let patient know that overall all labs are stable. No changes needed. Wil Nunes PA-C documented in this encounter [facility] 03-23-2022 History of Presen t illness [...] History Occupation Employer Comment DISABLED, arthritis [employer]* Social History Main Topics Smoking status: [...] which included preparing to see the patient, [id number] patient care, completing clinical documentation, performing a medically appropriate examination, counseling and educating the patient/family/caregiver and ordering medications, tests, or procedures. Alejandro Mendoza MD documented in this encounter [facility] 03-14-2022 Miscellaneous Notes Patient given results and verbalized understanding of instructions given. Nicole Willis Let patient know their covid19/influenza test was negative. documented in this encounter [facility] 03-13-2022 History of Presen t illness Narrative Patient presents with: Cough: Chest congestion x1 day HPI: Cough and chest congestion since last night and trouble coughing up the phlegm. Positive symptoms: cough, Chest congestion, mild allergies, Nasal Congestion, Negative symptoms: Sore throat, Fever, Malaise, Fatigue, Nausea, Vomiting, palpitations, edema OTC: mucinex Completed 4th dose of [employer] COVID-19 vaccine in October. PAST MEDICAL HISTORY [...] MD documented in this encounter [facility] 02-03-2022 Miscellaneous Notes Last office visit: 08/26/21 Next appointment scheduled: 03/23/22 Last labs: 01/07/22 Patient phones requesting refills as follows: Requested Prescriptions Pending Prescriptions Disp Refills amLODIPine (NORVASC) 2.5 mg tablet 90 tablet 1 Sig: Take 1 tablet by mouth once daily. Please review and advise. Ileana Rosario LPN documented in this encounter [facility] 08-26-2021 History of Presen t illness [...] Negative Negative Ketones, Urine Negative Negative Specific Adams, Ur 1.005 - 1.030 1.009 Hemoglobin/Blood,Ur Negative [...] PA-C documented in this encounter [facility] Diagnosis Acute cough- Primary [facility]* Diagnosis Medicare annual wellness visit, [...] counseling [facility] Diagnosis Essential hypertension, benign- Primary Dyslipidemia Other and unspecified hyperlipidemia Renal insufficiency Unspecified disorder of kidney and ureter Macular degeneration of both eyes, unspecified type Psoriatic arthritis (HCC) Psoriatic arthropathy Proteinuria, unspecified type 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) Melanoma in situ, unspecified site (HCC) [facility] Diagnosis Hypertension, essential- Primary Unspecified essential hypertension [facility] Diagnosis Community acquired pneumonia of left lung, unspecified part of lung- Primary [facility]* Diagnosis Medicare annual wellness visit, subsequent- Primary Routine general medical examination at a health care facility Essential hypertension, benign Dyslipidemia Other and unspecified hyperlipidemia Benign prostatic hyperplasia without lower urinary tract symptoms 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) Melanoma in situ, unspecified site (HCC) Advance directive discussed with patient Other specified counseling documented in this encounter [facility] Summary Purpose Family History No Family History Records FoundNo Family History Records Found Advance Directives No Advanced Directives Records FoundDocuments on File Type Date Recorded Patient Barrel Inspector Expl anation Advance Directive(s) 07/06/2010 12:00 AM Advance Directive(s) 07/05/2006 12:00 AM Documents on File Type Date Recorded Patient Barrel Inspector Expl anation Advance Directive(s) 07/06/2010 Advance Directive(s) [...] DATE CREATED AUTHOR AUTHOR'S CRYS ATION 04/05/2023 [facility] Source Comments (unrecognize d section and content) In the event this informatio n is protected by the Federal Confidentiality of Alcohol and Drug Abuse Patient Records regulations: The Federal rules restrict any use of the information to criminally investigate or prosecute any alcohol or drug abuse patient.[facility] the event this information is protected by the Federal Confidentiality of Alcohol and Drug Abuse Patient Records regulations: The Federal rules restrict any use of the information to criminally investigate or prosecute any alcohol or drug abuse patient.[facility] the event this information is protected by the Federal Confidentiality of Alcohol and Drug Abuse Patient Records regulations: The Federal rules restrict any use of the information to criminally investigate or prosecute any alcohol or drug abuse patient.[facility] the event this information is protected by the Federal Confidentiality of Alcohol and Drug Abuse Patient Records regulations: The Federal rules restrict any use of the information to criminally investigate or prosecute any alcohol or drug abuse patient.[facility] the event this information is protected by the Federal Confidentiality of Alcohol and Drug Abuse Patient Records regulations: The Federal rules restrict any use of the information to criminally investigate or prosecute any alcohol or drug abuse patient.[facility] the event this information is protected by the Federal Confidentiality of Alcohol and Drug Abuse Patient Records regulations: The Federal rules restrict any use of the information to criminally investigate or prosecute any alcohol or drug abuse patient.[facility] the event this information is protected by the Federal Confidentiality of Alcohol and Drug Abuse Patient Records regulations: The Federal rules restrict any use of the information to criminally investigate or prosecute any alcohol or drug abuse patient.[facility] HospitalIn the event this information is protected by the Federal Confidentiality of Alcohol and Drug Abuse Patient Records regulations: The Federal rules restrict any use of the information to criminally investigate or prosecute any alcohol or drug abuse patient.[facility] HospitalIn the event this information is protected by the Federal Confidentiality of Alcohol and Drug Abuse Patient Records regulations: The Federal rules restrict any use of the information to criminally investigate or prosecute any alcohol or drug abuse patient.[facility] HospitalIn the event this information is protected by the Federal Confidentiality of Alcohol and Drug Abuse Patient Records regulations: The Federal rules restrict any use of the information to criminally investigate or prosecute any alcohol or drug abuse patient.[facility] HospitalIn the event this information is protected by the Federal Confidentiality of Alcohol and Drug Abuse Patient Records regulations: The Federal rules restrict any use of the information to criminally investigate or prosecute any alcohol or drug abuse patient.[facility] HospitalIn the event this information is protected by the Federal Confidentiality of Alcohol and Drug Abuse Patient Records regulations: The Federal rules restrict any use of the information to criminally investigate or prosecute any alcohol or drug abuse patient.[facility] HospitalIn the event this information is protected by the Federal Confidentiality of Alcohol and Drug Abuse Patient Records regulations: The Federal rules restrict any use of the information to criminally investigate or prosecute any alcohol or drug abuse patient.[facility] HospitalIn the event this information is protected by the Federal Confidentiality of Alcohol and Drug Abuse Patient Records regulations: The Federal rules restrict any use of the information to criminally investigate or prosecute any alcohol or drug abuse patient.[facility] HospitalIn the event this information is protected by the Federal Confidentiality of Alcohol and Drug Abuse Patient Records regulations: The Federal rules restrict any use of the information to criminally investigate or prosecute any alcohol or drug abuse patient.[facility] HospitalIn the event this information is protected by the Federal Confidentiality of Alcohol and Drug Abuse Patient Records regulations: The Federal rules restrict any use of the information to criminally investigate or prosecute any alcohol or drug abuse patient.[facility] HospitalIn the event this information is protected by the Federal Confidentiality of Alcohol and Drug Abuse Patient Records regulations: The Federal rules restrict any use of the information to criminally investigate or prosecute any alcohol or drug abuse patient.[facility] Reason for Visit (unrecogniz ed section and content) Reason Onset Date Comments Refill Request 02/02/2022 Reason Comments Cough Chest congestion x1 day Reason Comments Results Reason Comments Medicare Wellness Exam Reason Onset Date Comments Refill Request 07/31/2022 Reason Comments 6 Month Exam Reason Comments Recheck Reason Onset Date Comments Refill Request 02/06/2023 Care Teams (unrecognized sec tion and content) Fire Prevention Chief Relationship Specialty Start Date End Date Alejandro Mendoza MD [address] [place] [address] PCP - General Family Practice 12/31/14 Fire Prevention Chief Relationship Specialty Start Date End Date Alejandro Mendoza MD [address] [place] [address] PCP - General Family Medicine 12/31/14 Fire Prevention Chief Relationship Specialty Start Date End Date Alejandro Mendoza MD [address] [place] [address] PCP - General Family Medicine 12/31/14 Fire Prevention Chief Relationship Specialty Start Date End Date Alejandro Mendoza MD [address] [place] [address] PCP - General Family Medicine 12/31/14 Fire Prevention Chief Relationship Specialty Start Date End Date Alejandro Mendoza MD [address] [place] [address] PCP - General Family Medicine 12/31/14 Fire Prevention Chief Relationship Specialty Start Date End Date Alejandro Mendoza MD [address] [place] [address] PCP - General Family Medicine 12/31/14 Fire Prevention Chief Relationship Specialty Start Date End Date Alejandro Mendoza MD [address] [place] [address] PCP - General Family Medicine 12/31/14 Fire Prevention Chief Relationship Specialty Start Date End Date Alejandro Mendoza MD [address] [place] [address] PCP - General Family Medicine 12/31/14 Fire Prevention Chief Relationship Specialty Start Date End Date Alejandro Mendoza MD [address] [place] [address] PCP - General Family Medicine 12/31/14 Fire Prevention Chief Relationship Specialty Start Date End Date Alejandro Mendoza MD [address] [place] [address] PCP - General Family Medicine 12/31/14 FOR [...] BE BASED ON THE PRIMARY CLINICAL RECORDS. [facility], [facility]. provides no warranty or guarantee of the accuracy or completeness of information in this document.
[2023-05-19] MEDS: Acetaminophen 500 MG Tablet 1000 MG PO ×2 (14:14→21:29)
[2023-05-19 14:27] LABS: Troponin-I HS 9 pg/mL (3.0-78.0)
[2023-05-19] MEDS: traMADol 50 MG Tablet PO (15:24)
[2023-05-19] MEDS: Metaxalone 800 MG Tablet PO (17:44)
[2023-05-19 18:15] LABS: Troponin-I HS 11 pg/mL (3.0-78.0)
[2023-05-20 02:19] VITALS: BP 149/84; PULSE 65; RESP 16; TEMP 36.6; O2SAT 93
[2023-05-20] MEDS: Acetaminophen 500 MG Tablet 1000 MG PO (05:53)
[2023-05-20 06:11] LABS: Absolute Lymphocyte Count 1.58 X10^3/uL (0.83-4.51); Absolute Neutrophil Count 5.6 X10^3/uL (2.0-7.7); Basophil# 0.05 X10^3/uL; Basophil% 0.6 % (0-1); Eosinophil# 0.32 X10^3/uL; Eosinophils% 3.8 % (0-5); Hematocrit 43.1 % (40-54); Hemoglobin 13.8 g/dL (13.0-16.5); Lymphocyte # 1.58 X10^3/ul (0.83-4.51); Lymphocyte % 18.9 % (19-41); Mean Corpuscular Hgb 30.5 pg (27.0-32.0); Mean Corpuscular Volume 95.4 fL (80-94); Mean Platelet Vol. 9.7 fl (6.2-12.0); Monocyte# 0.79 X10^3/uL; Monocyte% 9.5 % (0-10); NRBC Flagged by Analyzer 0 % (0-5); Neutrophil # 5.58 X10^3/uL (2.7-7.7); Neutrophil % 66.8 % (47-70); Platelet Count 203 K/mm3 (150-450); RBC Distribution Width CV 13.8 % (11.6-14.6); RBC Distribution Width SD 48.5 fl (35.1-43.9); Red Blood Count 4.52 M/mm3 (4.6-6.2); White Blood Count 8.4 K/mm3 (4.4-11.0)
[2023-05-20 06:48] LABS: AST(SGOT) 19 U/L (15-37); Alanine Aminotransfer ALT/SGPT 22 U/L (16-61); Albumin, Serum 3.3 g/dL (3.2-5.0); Alkaline Phosphatase 70 U/L (45-117); Anion Gap 4 (5-15); BUN 15 mg/dL (7-18); BUN/Creat Ratio 15.1 RATIO (10-20); Calcium,Total 8.7 mg/dL (8.5-10.1); Chloride 106 mmol/L (98-107); Creatinine, Serum 0.99 mg/dL (0.70-1.30); EST Glomerular Filtration Rate 76 mL/min (>60); Est Glom Filt Rate - Afr Amer 92 mL/min (>60); Estimated Creatinine Clearance 50.86 ml/min; Globulin 3.3 g/dL (2.2-4.2); Glucose 107 mg/dL (74-106); Magnesium 1.9 mg/dL (1.6-2.6); Phosphorus 2.9 mg/dL (2.5-4.9); Protein, Total 6.6 g/dL (6.4-8.2); Sodium Level 138 mmol/L (136-145); Thyroid Stim Hormone (TSH) 1.09 uIU/mL (0.358-3.74)
[2023-05-20 06:59] VITALS: O2SAT 94
[2023-05-20 08:32] VITALS: BP 119/84; PULSE 69; RESP 18; TEMP 36.6; O2SAT 94
[2023-05-20] MEDS: Atenolol 50 MG Tablet PO (08:35)
[2023-05-20] MEDS: amLODIPine 2.5 MG Tablet PO (08:35)
--- NOTE | 2023-05-20 09:21 | DS.PCM_ITS ---
Providers Date of Admission: 05/19/23 Date of Discharge: 05/20/23 Primary Care Physician: Dr. Miguel Hayes MD Reason For Visit: SYNCOPE Diagnosis Discharge Diagnosis (1) Contusion of head: Status: Acute Code(s): S00.93XA - Contusion of unspecified part of head, initial encounter (2) Syncope: Status: Acute Code(s): R55 - Syncope and collapse (3) Cervical stenosis of spinal canal: Status: Acute Code(s): M48.02 - Spinal stenosis, cervical region (4) Hyperglycemia: Status: Acute Code(s): R73.9 - Hyperglycemia, unspecified Medications at Discharge Home Medications amlodipine 2.5 mg tablet 2.5 mg PO DAILY BP 07/11/18 atenolol 50 mg tablet 50 mg PO DAILY BP 07/11/18 Hospital Course Procedures EKG and - (Chest x-ray/brain CT/cervical spine CT) Summary of Care Provided Minutes Spent on Discharge: 36 Hospital Course: Mr. Hussein is an 87-year-old white male who presented to the emergency department at [facility] on 05/19/2023 after he suffered a syncopal episode that he experienced early on the morning of presentation. He stated he felt fine the night prior to presenting and had watched the [employer] then went to bed. He indicated he woke up and felt a bit off and then per his they were in the kitchen cooking breakfast when he passed out and was unconscious for about 2 minutes. He had no loss of bowel or bladder, he did not bite his tongue and had no significant shaking during this episode. After waking up he slowly returned to baseline and at the time of presentation he was only complaining of some right-sided head pain and neck pain related to his fall. He is not on chronic anticoagulation at baseline and denied any other injuries other than his head contusion. He had never had anything like this previously and at the time of admission he felt like he was back to his baseline. Vital signs on presentation showed temperature of 97.2, heart rate 71, blood pressure was 156/104, respiratory rate 18 and oxygen saturations are 96% on room air. His CBC was unremarkable with a normal differential. His chemistry panel was unremarkable other than elevated glucose at 156. Liver function was normal. Troponin was 9. EKG showed normal sinus rhythm with normal intervals, [address]-T wave changes concerning for acute ischemia. CT of the brain shows right frontal scalp and right periorbital soft tissue swelling with chronic microvascular changes and findings consistent with ankylosing spondylitis. Cervical spine CT shows no acute fracture and stable severe stenosis at C1-C2 that is unchanged from previous exam 04/04/20202011. Chest x-ray showed left basilar pulmonary opacities that were similar to previous exam from October 2022. He was admitted to the telemetry floor and monitored on telemetry for 24 hours. Cardiac enzymes were cycled and unremarkable. His EKG monitoring showed intermittent PACs and sinus arrhythmia with a few PVCs but no significant arrhythmia that would contribute to syncope. COVID and flu were unremarkable. TSH was within normal limits. I did discuss with him the option to stay for an echocardiogram but this would not be able to be done till Sunday as it is a holiday weekend. He on the a.m. of 05/09/19312022 he was feeling back to his baseline and anxious to go home. I have asked him to follow-up with his primary care physician and obtain an outpatient echocardiogram and we have also ordered a 30-day event monitor. At the time of discharge his acute neck pain had resolved and he denied any headache. As noted he did suffer from a right frontal area contusion and as a result had developed right periocular ecchymosis. Patient was feeling back to baseline he was able to be discharged home in stable condition on 05/20/2023. Discharge diagnoses: Syncope with unknown cause Contusion to head Hyperglycemia-resolved, suspect stress response Severe cervical stenosis at T8-T3-[id number] Hypertension Psoriasis/psoriatic arthritis History of kidney cancer History of hyperlipidemia History of transient global amnesia Physical Exam Narrative Patient states he feels fine. He has been able to get up to the bathroom without any difficulty. States his neck pain is improved. No issues overnight. Anxious to go home. Const alert, oriented x3, no apparent distress, average body habitus, healthy appearing and well nourished Constitutional Narrative: Elderly, white male who appears younger than stated age, sitting up on the edge of the bed, patient appears comfortable and nontoxic General Appearance: cooperative, comfortable, well kempt and well developed Orientation / Consciousness: awake, oriented to person, oriented to place and oriented to time Exam Limitations: no limitations HEENT normocephalic and moist oral mucous membranes HEENT Narrative: Moderate hearing loss, dentition is fair for age, Mallampati is 2, no thrush, abrasion on right forehead with surrounding ecchymosis that has terrain around his right eye Eyes PERRL, EOMs intact bilaterally and conjunctivae normal Eyes Narrative: No scleral icterus, right periocular ecchymosis Neck no lymphadenopathy and supple Neck Narrative: Trachea midline, no thyroid enlargement Resp normal respiratory effort, no retractions, no use of accessory muscles and clear to auscultation bilaterally Auscultation: Negative for crackles, rhonchi or wheezes Cardio regular rate, regular rhythm, S1 normal heart sound, S2 normal heart sound, no murmurs, no rub, no gallops and no clicks GI normal to inspection, nondistended, normoactive bowel sounds, soft to palpation and non-tender Extremity no clubbing, cyanosis or edema Extremity Narrative: Pedal pulses are 2+ Skin skin turgor normal, no jaundice, no petechiae and no mottling Skin Narrative: Small abrasion on mid back that has been there for about a week per his that is healing, abrasion on right forehead as noted above, patchy areas on arms that appear to be actinic keratoses and patient does have other sun related changes on his skin, ecchymosis surrounding right forehead abrasion that has drained and now is periocular Neuro oriented x3, CN's II-XII intact bilaterally, moves all extremities and no focal motor deficits Neuro Narrative: Decreased cervical spine range of motion which is chronic Speech: speech normal Psych affect normal Psych Narrative: Contact is good, anxious to go home, appears comfortable and nontoxic Weight / BMI Weight Weight: 83.1 kg Body Mass Index (BMI) 27.8 ABG / Lab / Microbiology Data 05/20/23 05:52 05/20/23 05:52 Laboratory: Laboratory Results - last 24 hr 05/19/23 11:40: WBC 6.8, RBC 5.04, Hgb 15.5, Hct 47.9, MCV 95.0 H, MCH 30.8, MCHC 32.4, RDW Std Deviation 48.7 H, RDW Coeff of Tata 14.0, Plt Count 226, MPV 9.6, Immature Gran % (Auto) 0.100, Neut % (Auto) 60.4, Lymph % (Auto) 26.8, [place] % (Auto) 8.6, Eos % (Auto) 3.5, Baso % (Auto) 0.6, Absolute Neuts (auto) 4.1, Absolute Lymphs (auto) 1.83, Nucleated RBC % 0, Sodium 138, Potassium 4.4, Chloride 104, Carbon Dioxide 31.0, Anion Gap 3 L, BUN 18, Creatinine 1.18, Estim Creat Clear Calc 42.67, Est GFR (MDRD) Af Amer 75, Est GFR (MDRD) Non-Af 62, BUN/Creatinine Ratio 15.3, Glucose 156 H, Calcium 9.3, Total Bilirubin 0.70, Direct Bilirubin 0.18, AST 19, ALT 26, Alkaline Phosphatase 85, Troponin I High Sens 9, Total Protein 7.2, Albumin 3.9, Globulin 3.3 05/19/23 14:04: Troponin I High Sens 9 05/19/23 17:23: Troponin I High Sens 11 05/20/23 05:52: WBC 8.4, RBC 4.52 L, Hgb 13.8, Hct 43.1, MCV 95.4 H, MCH 30.5, MCHC 32.0, RDW Std Deviation 48.5 H, RDW Coeff of Tata 13.8, Plt Count 203, MPV 9.7, Immature Gran % (Auto) 0.400, Neut % (Auto) 66.8, Lymph % (Auto) 18.9 L, [place] % (Auto) 9.5, Eos % (Auto) 3.8, Baso % (Auto) 0.6, Absolute Neuts (auto) 5.6, Absolute Lymphs (auto) 1.58, Nucleated RBC % 0, Sodium 138, Potassium 4.0, Chloride 106, Carbon Dioxide 28.0, Anion Gap 4 L, BUN 15, Creatinine 0.99, Estim Creat Clear Calc 50.86, Est GFR (MDRD) Af Amer 92, Est GFR (MDRD) Non-Af 76, BUN/Creatinine Ratio 15.1, Glucose 107 H, Calcium 8.7, Phosphorus 2.9, Magnesium 1.9, Total Bilirubin 0.70, AST 19, ALT 22, Alkaline Phosphatase 70, Total Protein 6.6, Albumin 3.3, Globulin 3.3, Albumin/Globulin Ratio 1.0, TSH 1.09 Microbiology: Microbiology 05/19/23 13:45 Nasal Secretion SARS-CoV-2 & FLU Antigen (Rapid) - Final Radiography Diagnostic Testing: Radiology Impression Brain CT 05/19/23 11:40 IMPRESSION: 1. Right frontal scalp and right periorbital soft tissue swelling. No CT evidence of acute intracranial pathology. Chronic microvascular ischemic changes. 2. Findings consistent with ankylosing spondylitis. 3. Hypertrophic changes at the C1-C2 articulations associated with anterior subluxation of C1 in relation to C2 and severe canal stenosis at the level of C1. Consider follow-up MRI and neurosurgical consultation. No evidence of acute cervical spine fracture. Electronically Signed: Marcin Stroud DO at 12:21 EST , Cervical Spine CT 05/19/23 11:40 IMPRESSION: 1. Right frontal scalp and right periorbital soft tissue swelling. No CT evidence of acute intracranial pathology. Chronic microvascular ischemic changes. 2. Findings consistent with ankylosing spondylitis. 3. Hypertrophic changes at the C1-C2 articulations associated with anterior subluxation of C1 in relation to C2 and severe canal stenosis at the level of C1. Consider follow-up MRI and neurosurgical consultation. No evidence of acute cervical spine fracture. Electronically Signed: Marcin Stroud DO at 12:23 EST , ADDENDUM: 05/19/23 1238 IMPRESSION: 1. Right frontal scalp and right periorbital soft tissue swelling. No CT evidence of acute intracranial pathology. Chronic microvascular ischemic changes. 2. Findings consistent with ankylosing spondylitis. 3. Hypertrophic changes at the C1-C2 articulations associated with anterior subluxation of C1 in relation to C2 and severe canal stenosis at the level of C1. Consider follow-up MRI and neurosurgical consultation. No evidence of acute cervical spine fracture. N.B. : Myrna Basurto MD, confirmed on 05/19/2023 12:31:47 (ET) that the healthcare facility has received the radiology report. Electronically Signed: Marcin Stroud DO at 12:23 EST , ADDENDUM: 05/19/23 1250 IMPRESSION: undefined ADDENDUM: 05/19/23 1304 IMPRESSION: undefined Chest X-Ray 05/19/23 12:04 IMPRESSION: Left basilar pulmonary opacities similar to the prior examination may be scarring or atelectasis rather than pneumonia. Electronically Signed: Marcin Stroud DO at 12:35 EST , D/C Instructions Discharge Diet: Low fat / Low cholesterol Discharge Activity: Return to Normal Activity Meaningful Use Info Meaningful Use Diagnoses (Choose all that apply): None applicable Discharge Plan Admission Admit Date/Time: 05/19/23 13:30 Primary Reason for Your Visit: Syncope Attending Provider: Zahira Hernandez Primary Care Provider: Miguel Hayes Instructions Additional Instructions / Restrictions: 1. Please call your primary care physician and tell them you are in the hospital after an episode of passing out and that we requested echocardiogram be done as an outpatient since you, understandably, did not want to stay in the hospital till Sunday to have it done. 2. I have ordered a 30-day event monitor which will be sent to your house. You will wear this over 30 days to assess for any heart rhythms that could have contributed to you passing out as we did not find any on the 24-hour monitoring that you are on while you are in the hospital. Discharge Orders/Prescriptions Prescriptions: Continued amlodipine 2.5 MG tablet 2.5 mg PO DAILY atenolol 50 MG tablet 50 mg PO DAILY Other Ambulatory Orders: 30 Day Event Recorder Preventi (Urgent) Timeframe: 1 Day Facility: [facility] - Location: Cardiovascular Services Ordered By: Dr. Zahira Hernandez Referrals / Follow Up: Miguel Hayes MD [Primary Care Provider] - Within 1 Week Disposition Disposition (needs filled in before D/C Order can be placed): Home, Self Care Charges/Coding Visit Charges Inpatient E&M: 98856 Disch Hosp >30min
== END 2023-05-20 09:26 | disposition home or self-care (01) ==
LOC: ED 13:35 → PCU 13:58
PROVIDERS: Admitting Provider Internal Medicine; Emergency Provider Emergency Medicine; PCP Family Medicine; Visit Provider Internal Medicine
DX: R55 Syncope and collapse (principal); M48.02 Spinal stenosis, cervical region; E78.5 Hyperlipidemia, unspecified; L40.9 Psoriasis, unspecified; I10 Essential (primary) hypertension; Z87.891 Personal history of nicotine dependence; S00.93XA Contusion of unspecified part of head, initial encounter; Z79.899 Other long term (current) drug therapy; W19.XXXA Unspecified fall, initial encounter; M54.2 Cervicalgia; Z79.82 Long term (current) use of aspirin; R73.9 Hyperglycemia, unspecified
CPT/HCPCS: 36415; 70450; 71045; 72125; 80048; 80053; 80076; 83735; 84100; 84443; 84484; 85025; 87428; 93005; 94668; 99221; 99285; A4216; G0378